=== PATIENT | female | born 1945 | race Caucasian/White ===

== ENCOUNTER 2022-04-08 08:17 | Emergency (ER) | payer OTHER, SELFPAY ==
[2022-04-08 08:28] VITALS: BP 129/83; PULSE 94; RESP 18; TEMP 36.7; O2SAT 96; BMI 27.6
--- NOTE | 2022-04-08 08:48 | CRLHL7_ITS ---
For Patients: As a result of the Century Cures Act, medical imaging exams and procedure reports are released immediately into your electronic medical record. You may view this report before your referring provider. If you have questions, please contact your health care provider. INDICATION: Right-sided chest pain COMPARISON: No prior studies TECHNIQUE: : CT examination of the chest was performed with the uneventful intravenous administration of 95 cc of Isovue 370 while thin axial sections were obtained from above the apices of the lungs to the lung bases. Please note that all CT scans at this facility use dose modulation, iterative reconstruction, and/or weight-based dosing when appropriate to reduce radiation dose to as low as reasonably achievable. FINDINGS: : HEART and MEDIASTINUM: The heart size is normal. There is no mediastinal or hilar adenopathy or mass. There is no pericardial effusion.Mild fusiform dilatation of the ascending aorta at 3.9 centimeters. Moderate to large hiatal hernia PULMONARY ARTERIAL CIRCULATION: Moderate large clot burden pulmonary embolus. This is primarily right-sided and most affecting the right lower lobe. RV/LV ratio: The ratio is 1.1. Greater than 0.9 is considered indicative of right heart strain LUNGS: The lungs show no focal consolidation or mass. The airways appear normal. Patchy basilar opacities, right greater than left, likely atelectasis. PLEURAL SPACES: Tiny right effusion. No pneumothorax VISUALIZED UPPER ABDOMEN: Hepatic steatosis. Cholelithiasis. Otherwise, the limited visualized upper abdominal structures appear normal. OSSEOUS STRUCTURES: Age-appropriate appearance. No acute fracture or destructive process. TUBES and LINES: None. IMPRESSION: 1. There is a moderate large clot burden pulmonary embolus primarily involving the right lung and most affecting the right lower lobe 2. There is right heart strain. The RV/LV ratio is 1.1. Greater than 0.9 is indicative of right heart strain 3. Minimal bibasilar airspace process probably atelectasis. Tiny right effusion. 4. Hepatic steatosis. Cholelithiasis. Please note that all CT scans at this facility use dose modulation, iterative reconstruction, and/or weight-based dosing when appropriate to reduce radiation dose to as low as reasonably achievable. Dictated by Willie Trevino MD @ 04/08/2022 12:12:06 PM (Electronically Signed)
--- NOTE | 2022-04-08 08:50 | ED.GENADULT ---
HPI - General Adult General Time Seen by Provider: 08:49 Date Seen: 04/08/22 Chief complaint: Chest Pain Stated complaint: pain on right side Time Seen by Provider: 04/08/22 08:24 Source: patient Mode of arrival: ambulatory Limitations: no limitations History of Present Illness HPI narrative: Patient is a 76-year-old white female with history of right-sided chest wall pain. This started last night. No associated injury, cough, fevers, anterior chest pain, leg swelling or edema. Patient does not know why this began but it is definitely tender to touch in her right mid axillary line in her lower ribcage. This is reproducible by palpation certain movements or deep breathing. She does not recall having had a blood clot. She has reports he has been in good health recently. She did take a tramadol to try and help that discomfort which she right rates as moderate in the right lateral chest to a times pretty extreme. No COVID symptoms. Related Data Home Medications Medication Instructions Recorded Confirmed acetaminophen 650 mg 650 mg PO Q8H PRN 04/08/22 04/08/22 tablet,extended release betamethasone valerate 0.1 % TOPICAL 04/08/22 topical ointment bupropion HCl 300 mg 24 hr tablet, mg PO 04/08/22 extended release diclofenac sodium 1 % topical gel TOPICAL 04/08/22 fluticasone propionate 50 INTRANASAL 04/08/22 mcg/actuation nasal spray,suspension pregabalin 25 mg capsule mg 04/08/22 quetiapine 100 mg tablet mg 04/08/22 quetiapine 25 mg tablet mg 04/08/22 sumatriptan succinate 100 mg tablet mg PO 04/08/22 tramadol 50 mg tablet mg 04/08/22 venlafaxine 75 mg capsule,extended mg PO 04/08/22 release 24 hr Allergies Allergy/AdvReac Type Severity Reaction Status Date / Time hylan G-F 20 [From hybris] Allergy Verified 04/08/22 08:49 Penicillins Allergy Verified 04/08/22 08:49 Review of Systems Status of ROS: Reports: 6 or more systems reviewed and unremarkable except as noted in History and below PFSH PFSH Social History Smoking Status: Never smoker Do you use any of these nicotine containing products: None Second hand tobacco smoke exposure: No How often do you have a drink containing alcohol: never How often do you have six or more drinks on one occasion: Never AUDIT-C Alcohol total score: 0 Non-prescribed substance use: denies use Exam Narrative: Exam Narrative: Objective: Patient is alert orient x3, vital signs unremarkable Noncyanotic Neck is supple Chest is clear equal breath sounds, right lateral chest wall pain mid axillary line lower chest wall. No crepitus, no skin rashes over that area Abdomen benign soft nontender Extremities are no edema Neurologic nonfocal, good peripheral perfusion, skin warm and dry Const: Vital Signs, click to edit/add: Vital Signs - 24 hr 04/08/22 08:28 04/08/22 10:00 04/08/22 11:02 Temperature 98.1 F Pulse Rate [Pulse Oximeter] 94 81 77 Respiratory Rate 18 12 16 Blood Pressure [Ri ght Forearm] 129/83 135/81 147/83 H Pulse Oximetry 96 92 91 Course Vital Signs Vital signs: Initial Vital Signs Temperature 98.1 F 04/08/22 08:28 Temperature Source Temporal Artery Scan 04/08/22 08:28 Pulse Rate 94 04/08/22 08:28 Pulse Rhythm 04/08/22 08:28 Pulse Strength 3+ Normal 04/08/22 08:28 Respiratory Rate 18 04/08/22 08:28 Blood Pressure 129/83 04/08/22 08:28 Blood Pressure Mean 98 04/08/22 08:28 Pulse Oximetry 96 04/08/22 08:28 Oxygen Delivery Method 04/08/22 08:28 Vital Signs Temperature 98.1 F 04/08/22 08:28 Pulse Rate 94 04/08/22 08:28 Respiratory Rate 18 04/08/22 08:28 Blood Pressure 129/83 04/08/22 08:28 Pulse Oximetry 96 04/08/22 08:28 Temperature 98.1 F 04/08/22 08:28 Pulse Rate 77 04/08/22 11:02 Respiratory Rate 16 04/08/22 11:02 Blood Pressure 147/83 H 04/08/22 11:02 Pulse Oximetry 91 04/08/22 11:02 Medical Decision Making MDM Narrative Medical decision making narrative: The patient really has no explanation why right chest wall is hurting, she has no rashes that would be consistent with shingles, certainly that could occur. The patient denies trauma denies fall or injury. She does seem to be pretty uncomfortable. I think would be appropriate given her age to make sure she did have any intrapulmonary process such as a PE, pneumonia, rib fracture so CT scan will be ordered of her chest. Will also get laboratories and an EKG and a troponin for completeness although her pain is palpable and reproducible and I do not think this is cardiac. Addendum: The patient has right-sided pulmonary emboli in 2 areas per Radiology. She is not hypoxic, is not on blood thinners. Has not had bleeding or clotting problems in the past. She is on antidepressant medication and has had trouble with arthritis. She takes Tylenol arthritis, and bladder medication. She sees Dr. Ana Porter. Her EKG by my read shows probable LVH but no acute ST T wave changes limited R-wave progression anteriorly. She is not hypoxic today. She has no leg pain, no chest pain, no shortness of breath. I will discuss with the hospitalist regarding treatment planning but I suspect she can go home on novel anticoagulant and will give her Xarelto 15 mg b.i.d. for 21 days then 20 mg q.day thereafter. She should be with Dr. Porter within the next couple of days for reassessment and ongoing planning. She can return to the ED at any time if chest pain shortness of breath or other concern. Discussed with Dr. Cummins our hospitalist who agreed with the plan, patient will also be given [place] for home. Lab Data Labs: Lab Results 04/08/22 04/08/22 Range/Units 09:10 09:10 WBC 9.81 (4.50-11.00) K/uL RBC 5.05 (4.00-5.20) m/uL Hgb 15.7 (12.0-16.0) gm/dL Hct 48.7 (33.0-51.0) % MCV 96 (80-100) fL MCH 31 (26-34) pg MCHC 32 (32-36) gm/dL RDW Coeff of Panchito 13.2 (11.5-15.5) % Plt Count 267 (140-440) K/uL Neut % (Auto) 76.0 H (42.0-72.0) % Lymph % (Auto) 12.8 L (20-44) % [place] % (Auto) 9.9 (0.0-11.0) % Eos % (Auto) 0.6 (0.0-7.0) % Baso % (Auto) 0.2 (0.0-3.0) % Neut # (Auto) 7.50 H (1.7-7.0) K/uL Lymph # (Auto) 1.30 (0.90-2.90) K/uL [place] # (Auto) 1.00 H (0.00-0.90) K/UL Eos # (Auto) 0.06 (0.00-0.50) K/uL Baso # (Auto) 0.02 (0.00-0.30) K/uL Abs Immat Gran (auto) 0.05 (0.00-0.30) K/uL Sodium 137 (135-149) mmol/L Potassium 4.4 (3.6-5.1) mmol/L Chloride 102 (96-114) mmol/L Carbon Dioxide 28 (20-32) mmol/L BUN 21 (7-30) mg/dL Creatinine 1.1 (0.5-1.5) mg/dL Estimated Creat Clear 40.09 Glucose 137 H (60-115) mg/dL Calcium 9.2 (8.4-10.6) mg/dL Troponin I < 0.01 L (0.01-0.04) ng/mL C-Reactive Protein 3.3 H (0.5-1.0) mg/dL Discharge Plan Discharge Clinical Impression: Chest wall pain Patient Disposition: Home w/ Parent or Adult Condition: Improved Additional Instructions: Rest, light activity, ice to the chest wall, [place] to use as needed, Advil as needed. Update primary care in the next couple of days Activity Level: Light activity Discharge Diet: Regular Prescriptions: No Action quetiapine 25 mg tablet 0RF betamethasone valerate 0.1 % ointment TOPICAL 0RF venlafaxine 75 mg capsule,extended release 24hr PO 0RF sumatriptan succinate 100 mg tablet PO 0RF tramadol 50 mg tablet 0RF quetiapine 100 mg tablet 0RF fluticasone propionate 50 mcg/actuation spray,suspension INTRANASAL 0RF bupropion HCl 300 mg tablet extended release 24 hr PO 0RF pregabalin 25 mg capsule 0RF diclofenac sodium 1 % gel TOPICAL 0RF acetaminophen 650 mg tablet extended release 650 mg PO Q8H [id number] Follow Up/Referrals: Ana Aguilar DO [Primary Care Provider] - Stand Alone Forms: [employer] Info Instructions
[2022-04-08] MEDS: 0.9 % SODIUM CHLORIDE 500 ML 500 ML IV (09:23)
[2022-04-08 09:24] LABS: Basophils Absolute Auto 0.02 K/uL (0.00-0.30); Basophils Percent Auto 0.2 % (0.0-3.0); Eosinophils Absolute Auto 0.06 K/uL (0.00-0.50); Eosinophils Percent Auto 0.6 % (0.0-7.0); Hematocrit 48.7 % (33.0-51.0); Hemoglobin* 15.7 gm/dL (12.0-16.0); Immature Granulocytes Abs Auto 0.05 K/uL (0.00-0.30); Lymphocytes Percent Auto 12.8 % (20-44); Mean Corpuscular HGB Conc 32 gm/dL (32-36); Mean Corpuscular Hemoglobin 31 pg (26-34); Mean Corpuscular Volume 96 fL (80-100); Monocytes Percent Auto 9.9 % (0.0-11.0); Platelet Count* 267 K/uL (140-440); RDW Coefficient of Variation % 13.2 % (11.5-15.5); Red Blood Count 5.05 m/uL (4.00-5.20); White Blood Count* 9.81 K/uL (4.50-11.00)
[2022-04-08] MEDS: MORPHINE 2 MG/ML inj IVP (09:25)
[2022-04-08 09:28] LABS: Slide Review Reflex No
[2022-04-08 10:00] VITALS: BP 135/81; PULSE 81; RESP 12; O2SAT 92
[2022-04-08 10:02] LABS: Chloride* 102 mmol/L (96-114); Potassium* 4.4 mmol/L (3.6-5.1); Sodium* 137 mmol/L (135-149)
[2022-04-08 10:05] LABS: Creatinine* 1.1 mg/dL (0.5-1.5); Est. Creatinine Clearance* 40.09; Estimated Glomerular Filt Rate 51.75
[2022-04-08 10:06] LABS: Blood Urea Nitrogen* 21 mg/dL (7-30); Calcium* 9.2 mg/dL (8.4-10.6); Carbon Dioxide* 28 mmol/L (20-32); Glucose* 137 mg/dL (60-115)
[2022-04-08 10:09] LABS: C Reactive Protein* 3.3 mg/dL (0.5-1.0)
[2022-04-08 10:18] LABS: Troponin I* < 0.01 ng/mL (0.01-0.04)
[2022-04-08 11:02] VITALS: BP 147/83; PULSE 77; RESP 16; O2SAT 91
[2022-04-08 11:30] VITALS: BP 155/87; PULSE 77; RESP 21; O2SAT 94
[2022-04-08] MEDS: RIVAROXABAN 10 MG TABLET 15 MG PO (11:44)
[2022-04-08] MEDS: HYDROCODONE/ACETAMIN 7.5-325 TABLET 1 TAB PO (11:45)
[2022-04-08 12:00] VITALS: BP 144/77; PULSE 77; RESP 21; O2SAT 94
[2022-04-08 12:15] VITALS: BP 144/77; PULSE 44; RESP 20
== END 2022-04-08 12:15 ==
PROVIDERS: Emergency Provider Family Medicine; PCP Family Medicine
DX: R07.89 Other chest pain (principal)
CPT/HCPCS: 96374; 36415; 71260; 80048; 84484; 85025; 86140; 93005; 99284; 99285; A9270; J2270; J7120; Q9967

== ENCOUNTER 2022-07-15 07:48 | Day surgery (SDC) | payer OTHER, SELFPAY ==
[2022-07-15] VITALS (24 sets, daily range): BP systolic 122–165; BP diastolic 75–109; PULSE 55–94; RESP 16–18; TEMP 35.8–36.6; O2SAT 91–98; BMI 29.0
[2022-07-15] MEDS: LACTATED RINGERS 1000 ML 1,000 ML 100 ML IV (08:30)
[2022-07-15] MEDS: ACETAMINOPHEN 500 MG TABLET 1000 MG PO ×2 (09:50→14:07)
[2022-07-15] MEDS: OXYCODONE (CR) 10 MG TAB.ER.12H PO (09:50)
[2022-07-15] MEDS: CELECOXIB 200 MG CAPSULE PO ×2 (09:50→20:58)
[2022-07-15] MEDS: fentaNYL 100 MCG/2 ML inj IVP (09:56)
[2022-07-15] MEDS: MIDAZOLAM HCL 1 MG/ML inj IVP (09:56)
--- NOTE | 2022-07-15 10:14 | SUR.PREOP ---
TIME?OUT:?0952 PT/RN/MDA?VERIFICATION?OF?SURGICAL?SITE,?PROCEDURE,?AND?CONSENT OBTAINED?PRIOR?TO?INVASIVE?PROCEDURE.
[2022-07-15] MEDS: CEFAZOLIN 2 GM in 0.9 % SODIUM CHLORIDE Mini-bag 100 ML IVPB ×2 (10:22→17:08)
[2022-07-15] MEDS: TRANEXAMIC ACID 100 MG/ML INJ 1000 MG IV (10:30)
--- NOTE | 2022-07-15 11:05 | W.PM.NB ---
Nerve Block Nerve Block Date Seen: 07/15/22 Type of block requested by surgeon for post-operative analgesia: adductor canal Side: left Time out performed: Yes Verification of patient name: Yes Verification of date of : Yes Site marking: site marked Name of person performing procedure: Anurag Continuous monitoring Was continuous monitoring of O2 sat, B/P, monitoring and evaluation advisor, recorded every 15 minutes?: Yes Procedure Checklist: sterile prep, needles and gloves Ultrasound guided. Images saved: Yes Medications given in 5ml increments after negative aspiration: Ropivicaine %: 0.5 mL: 20 Needle gauge: 20 Decadron (mg): 10 Precedex (mcg): 25 Patient tolerated procedure well: Yes Additional comments: Needle noted adjacent to nerve Block Charges Block Charge (with Pro Fee): Femoral Nerve Use of Ultrasound Machine for Block: Yes- US Guidance/pain block
--- NOTE | 2022-07-15 11:06 | W.PM.NB ---
Nerve Block Nerve Block Date Seen: 07/15/22 Type of block requested by surgeon for post-operative analgesia: geniculars Side: left Time out performed: Yes Verification of patient name: Yes Verification of date of : Yes Site marking: site marked Name of person performing procedure: Anurag Continuous monitoring Was continuous monitoring of O2 sat, B/P, tail board worker, recorded every 15 minutes?: Yes Procedure Checklist: sterile prep, needles and gloves Medications given in 5ml increments after negative aspiration: Ropivicaine %: 0.5 mL: 9 Needle gauge: 25 Patient tolerated procedure well: Yes Block Charges Block Charge (with Pro Fee): Genicular Nerve Block Use of Ultrasound Machine for Block: No
--- NOTE | 2022-07-15 11:49 | CRLHL7_ITS ---
For Patients: As a result of the Cures Act, medical imaging exams and procedure reports are released immediately into your electronic medical record. You may view this report before your referring provider. If you have questions, please contact your health care provider. Indication: POST OP LEFT TKA Technique: Two views left knee Findings/Impression: Hardware from a left total knee arthroplasty is in satisfactory position. Bone alignment is normal. No sign of acute fracture. Postop changes are within normal limits. Dictated by Ricardo Gabriel MD @ 07/15/2022 1:17:36 PM (Electronically Signed)
--- NOTE | 2022-07-15 12:33 | W.ANESCHARGE ---
Anesthesia Charges Start Date/Time Anesthesia Start Date: 07/15/22 Anesthesia Start Time: 10:12 Stop Date/Time Anesthesia Stop Date: 07/15/22 Anesthesia Stop Time: 12:31 Summary Emergency: No Extremes of Age: Over 69-CPT 13083
--- NOTE | 2022-07-15 13:32 | W.ANESCHARGE ---
Anesthesia Charges Start Date/Time Anesthesia Start Date: 07/15/22 Anesthesia Start Time: 10:12 Stop Date/Time Anesthesia Stop Date: 07/15/22 Anesthesia Stop Time: 12:31 Summary Emergency: No Extremes of Age: Over 69-CPT 93076
[2022-07-15] MEDS: LACTATED RINGERS 1000 ML 1,000 ML 75 ML IV ×2 (13:56→19:24)
--- NOTE | 2022-07-15 14:51 | PM.ORPRC ---
Procedure Note Date of procedure: 07/15/22 Procedure: PREOPERATIVE DIAGNOSIS: 1. Left knee osteoarthritis, primary, severe POSTOPERATIVE DIAGNOSIS: 1. Left knee osteoarthritis, primary, severe PROCEDURE: 1. Left total knee arthroplasty SURGEON: Mark Thomas MD. SENIOR GROUP MANAGER: Abebe Johnson PA-C - Of note, a skilled assistant professor nurse education was critical for this case to aid in patient positioning, tissue retraction, limb manipulation/positioning, and closure. ANESTHESIA: Spinal anesthetic EBL: 50ml IMPLANTS: DePuy J&J all cemented TKA - Attune PS femur size 5 narrow, size 4 tibia, 5 poly spacer, 32 mm patella TOURNIQUET: 90 min at 300 torr COMPLICATIONS: None evident INDICATIONS: The patient is a pleasant 77-year-old female who has experienced severe left knee pain and difficulty bearing weight. Workup included x-rays which revealed severe osteoarthrosis in the knee. Given the deformity, the dysfunction, and the pain, as well as the failure of nonoperative management, recommendation was made for surgery. FINDINGS: Full-thickness chondral loss lateral compartment the significant chondromalacia the remaining compartments. Large effusion upon entering the joint. Degenerative meniscal pathology specially lateral compartment. DESCRIPTION OF PROCEDURE: Following a thorough discussion of risks, benefits, and alternatives consent was obtained and the left knee was marked. The patient was brought to the operating room and placed supine on the operating table. Induction of anesthesia was undertaken. 2 g IV Ancef and 1 g tranexamic acid was administered within 1 hr of incision preoperatively. Proper time-out was performed identifying proper patient, site, procedure. The operative extremity was prepped and draped in the appropriate sterile fashion using ChloraPrep after the patient was positioned supine with all bony prominences well padded. A longitudinal, anterior, midline skin incision was made starting approximately 3cm proximal to the superior pole of the patella and advanced distal to the tibial tubercle. A median parapatellar arthrotomy was created. A medial subperiosteal sleeve was created with knife, barth elevator and curved osteotome. The retropatellar fatpad was resected and the synovium in the suprapatellar pouch excised to visualize the anterior femoral cortex. Femoral preparation was performed via an intramedullary guide. Step drill allowed access into the femoral canal. The distal cutting guide was placed with 6 ? of valgus and 11 mm cut on the distal femur. Femur was sized using a posterior referencing guide in 5 ? of external rotation. This found have a best fit with the sizing noted above. The 4 in 1 cutting block was then placed, and the distal femur shaped accordingly. The box cut was then created and the trial implant inserted to confirm appropriate fit. We turned our attention to the proximal tibia. Extramedullary guide was utilized for cutting with the goal of being 90 degree cut from the mechanical axis of the tibia in the varus/valgus plane utilizing tibial crest as the primary alignment. Initially a 3 mm resection was performed from the medial tibial plateau. Ultimately, balancing was achieved in both flexion and extension in both varus and valgus. The knee was able to achieve full extension as well comfortably. The patella was initially measured and found have a thickness of 22 mm. It was resected back to approximately 14 mm. It was sized to be a best fit with as noted above. This was drilled, trial placed. All trials were placed and found to have an excellent stability and balance. At this stage, trial implants were removed, the knee was thoroughly irrigated with normal saline, and the cement was mixed. After irrigation, the knee was thoroughly dried, and cement placed, with the real tibial and femoral implants placed along with the patella. Trial poly spacer was placed and confirmed to have excellent range of motion and full extension, and the real poly spacer opened and inserted. All extra cement was removed, and a 3 min Betadine soak performed. Finally, a final irrigation round with normal saline was performed. Closure performed with 0 PDS and #0 Stratafix for the quad tendon/retinaculum. 2-0 Vicryl/Stratafix for the subcutaneous and 4-0 Monocryl for subcuticular closure. Dressings were applied and the patient was awoken from anesthesia after the tourniquet deflated and transferred the PACU in stable condition. A skilled assistant professor nurse education was critical for this case to aid in patient positioning, tissue retraction, bone exposure, limb manipulation/positioning, patient safety, and closure. PLAN: 1. Weight bear as tolerated operative extremity. 2. 23 hr perioperative antibiotics. 3. Ice. 4. PT/OT consults for ambulation assistance/mobility education. 5. Social work consult for discharge planning. 6. DVT prophylaxis with at SCDs, Dax Hose, and Xarelto 10 mg x 1 day then back to 20 mg daily.
[2022-07-15] MEDS: OXYCODONE 5 MG TABLET PO ×3 (15:24→20:59)
--- NOTE | 2022-07-15 17:44 | PC.NURSE ---
Shift Summary: Patient arrived to room @ 1318, alert and oriented. Tolerating regular diet, denies nausea. Up with one assist, walker and gait belt. Pain controlled with PRN oxycodone and cryocuff. Has not been up to bathroom yet. In recliner for dinner now. Dressing over left knee dry and intact.
[2022-07-15] MEDS: SENNOSIDES 1 TAB TABLET 2 TAB PO (20:59)
[2022-07-15] MEDS: QUETIAPINE 25 MG TABLET PO (20:59)
[2022-07-15] MEDS: QUETIAPINE 100 MG TABLET PO (20:59)
--- NOTE | 2022-07-15 21:52 | P.IMCN_ITS ---
Date of Consult Patient: Jan Patient Consult date: 07/15/22 Requesting Physician: Orthopedics Primary Care Provider: Ana Aguilar, Consult Narrative Reason for consult: Postoperative support of medical conditions Narrative: Melanie Frederick is a 77 year old woman presents for elective left total knee arthroplasty due to severe osteoarthritis not amenable to nonsurgical intervention efforts. This procedures undertaken today successfully without any apparent complications. Review of Systems Status of ROS: Reports: 10 or more systems reviewed and unremarkable except as noted in History and below Narrative: Denies angina, anginal equivalent, syncope, near syncope, nausea, vomiting, palpitations, diaphoresis, dyspnea at rest, dyspnea with exertion, paroxysmal nocturnal dyspnea, orthopnea, or claudication. Denies gastrointestinal or genitourinary concerns or problems. No focal motor neurologic deficits. Acknowledges history of pulmonary embolism diagnosed in April of 2022 for which she is on rivaroxaban since then. Consultation with Hematology undertaken and recommendation given for lifelong anticoagulation. Presumably developed venous thromboembolism in association with sedate lifestyle. No complications from this therapy. Tolerating. Discontinue the therapy with rivaroxaban prior to her procedure. Acknowledges very sedate lifestyle with increasing left knee pain. Hopes to be able to increase her ambulatory status after this surgery. Lives with her . Designates her as her power of immigration attorney for health should that be required. Requests full resuscitation in the event of cardiopulmonary demise. [facility] Medical History (Updated 07/15/22 @ 22:05 by Russell Marquez MD) Allergic rhinitis Chronic anticoagulation CKD (chronic kidney disease) Generalized anxiety disorder History of pulmonary embolism (04/08/22) Iron deficiency anemia, unspecified Lichenification and lichen simplex chronicus Personal history of colonic polyps Pulmonary nodule Seasonal affective disorder Surgical History (Updated 07/15/22 @ 22:05 by Russell Marquez MD) History of bladder surgery Social History Smoking Status: Never smoker Do you use any of these nicotine containing products: None Second hand tobacco smoke exposure: No How often do you have a drink containing alcohol: never How often do you have six or more drinks on one occasion: Never AUDIT-C Alcohol total score: 0 Non-prescribed substance use: denies use Caffeine: No Are you using contraception or practicing any form of control: No service: No Meds Home Medications and Allergies Home Medications Medication Instructions Recorded Confirmed Type acetaminophen 650 mg 650 mg PO Q8H PRN 04/08/22 07/15/22 History tablet,extended release betamethasone valerate 0.1 % 1 applic topical DAILY 04/08/22 07/15/22 History topical ointment bupropion HCl 300 mg 24 hr tablet, 300 mg PO DAILY 04/08/22 07/15/22 History extended release diclofenac sodium 1 % topical gel 4 g topical QID 04/08/22 07/15/22 History fluticasone propionate 50 2 spray intranasal DAILY 04/08/22 07/15/22 History mcg/actuation nasal spray,suspension quetiapine 100 mg tablet 100 mg PO HS 04/08/22 07/15/22 History quetiapine 25 mg tablet 25 mg PO HS 04/08/22 07/15/22 History sumatriptan succinate 100 mg tablet 100 mg PO Q2H PRN 04/08/22 07/15/22 History venlafaxine 75 mg capsule,extended 75 mg PO DAILY 04/08/22 07/15/22 History release 24 hr rivaroxaban 15 mg tablet (Xarelto) 20 mg PO DIRECTED 04/26/22 07/15/22 History venlafaxine 37.5 mg 37.5 mg PO DAILY 07/15/22 07/15/22 History capsule,extended release 24 hr Allergies Allergy/AdvReac Type Severity Reaction Status Date / Time Penicillins Allergy Intermediate Rash Verified 07/15/22 08:16 erythromycin base Allergy Mild RASH Verified 07/15/22 08:16 hylan G-F 20 [From [employer]] Allergy Verified 07/15/22 08:16 Exam Narrative: Exam Narrative: No acute distress. Appears comfortable. Alert, oriented to self, place, time, situation. Articulate, cooperative, friendly. Mood and affect are congruent. Hearing and vision are grossly normal. Midline nasal septum with normal buccal mucosa. Dentition in fair repair. Midline trachea, normal thyroid, no JVD, hepatojugular reflux, or carotid bruits. No lymphadenopathy. Lungs are clear to auscultation. Heart tones with regular rhythm without murmur, gallop, or rub. Abdomen with active bowel sounds, soft, nontender. Extremities without edema. Skin is intact. Const: Vital Signs, click to edit/add: Vital Signs - 24 hr 07/15/22 08:29 07/15/22 09:55 07/15/22 10:00 Temperature 98 F Pulse Rate 83 83 83 Pulse Rate [Right Pulse Oximeter] Respiratory Rate 16 16 16 Blood Pressure 149/89 H 144/84 H 133/75 Blood Pressure [Ri ght Arm] Pulse Oximetry 98 98 97 Oxygen Delivery Me thod Room Air Nasal Cannula Nasal Cannula Oxygen Flow Rate 2 2 07/15/22 10:05 07/15/22 12:30 07/15/22 12:35 Temperature 97.2 F L Pulse Rate 83 65 66 Pulse Rate [Right Pulse Oximeter] Respiratory Rate 16 16 16 Blood Pressure 157/90 H 124/79 136/87 Blood Pressure [Ri ght Arm] Pulse Oximetry 97 98 98 Oxygen Delivery Me thod Nasal Cannula Non Rebreather Mas k Non Rebreather Mas k Oxygen Flow Rate 2 5 5 07/15/22 12:40 07/15/22 12:45 07/15/22 12:50 Temperature 97.2 F L Pulse Rate 63 64 57 L Pulse Rate [Right Pulse Oximeter] Respiratory Rate 16 16 16 Blood Pressure 133/94 H 146/85 H 147/82 H Blood Pressure [Ri ght Arm] Pulse Oximetry 98 98 98 Oxygen Delivery Me thod Non Rebreather Mas k Non Rebreather Mas k Non Rebreather Mas k Oxygen Flow Rate 5 5 2 07/15/22 12:55 07/15/22 13:00 07/15/22 13:05 Temperature Pulse Rate 67 60 63 Pulse Rate [Right Pulse Oximeter] Respiratory Rate 16 16 16 Blood Pressure 153/96 H 145/96 H 142/84 H Blood Pressure [Ri ght Arm] Pulse Oximetry 92 95 94 Oxygen Delivery Me thod Room Air Room Air Room Air Oxygen Flow Rate 07/15/22 13:30 07/15/22 13:45 07/15/22 13:18 Temperature 96.5 F L 96.4 F L 96.5 F L Pulse Rate 60 Pulse Rate [Right Pulse Oximeter] 55 L 58 L Respiratory Rate 18 18 18 Blood Pressure Blood Pressure [Ri ght Arm] 154/85 H 163/89 H 137/102 H Pulse Oximetry 91 Oxygen Delivery Me thod Nasal Cannula Nasal Cannula Nasal Cannula Oxygen Flow Rate 2 2 2 07/15/22 14:00 07/15/22 14:15 07/15/22 14:45 Temperature 96.4 F L 96.5 F L 96.5 F L Pulse Rate Pulse Rate [Right Pulse Oximeter] 72 62 73 Respiratory Rate 18 18 18 Blood Pressure Blood Pressure [Ri ght Arm] 157/96 H 165/91 H 163/96 H Pulse Oximetry 94 94 91 Oxygen Delivery Me thod Nasal Cannula Nasal Cannula Nasal Cannula Oxygen Flow Rate 2 1 1 07/15/22 15:15 07/15/22 16:15 07/15/22 17:15 Temperature 96.5 F L 96.5 F L 96.7 F L Pulse Rate Pulse Rate [Right Pulse Oximeter] 90 89 94 Respiratory Rate 18 16 16 Blood Pressure Blood Pressure [Ri ght Arm] 146/94 H 156/89 H 154/109 H Pulse Oximetry 91 93 Oxygen Delivery Me thod Nasal Cannula Nasal Cannula Nasal Cannula Oxygen Flow Rate 2 2 2 07/15/22 18:15 07/15/22 19:30 Temperature 96.8 F L Pulse Rate Pulse Rate [Right Pulse Oximeter] 90 88 Respiratory Rate 16 16 Blood Pressure Blood Pressure [Ri ght Arm] 147/106 H 155/109 H Pulse Oximetry 94 93 Oxygen Delivery Me thod Nasal Cannula Nasal Cannula Oxygen Flow Rate 2 2 Documenting provider has reviewed patient's vital signs: yes Assessment and Plan Assessment and plan (1) Osteoarthritis of left knee: Problem comment: Left knee osteoarthrosis, severe Status: Acute (2) Status post left knee replacement: Status: Acute (3) Degenerative lumbar spinal stenosis: Problem comment: L2-3 grade 1 retrolisthesis. Mild-moderate neural foraminal stenosis L5-S1 small left foraminal disc extrusion. Mild left foraminal stenosis Status: Acute (4) Generalized anxiety disorder: Status: Acute (5) Depression: Status: Acute (6) History of pulmonary embolism: Problem comment: 04/08/2022 due to sedate lifestyle. Hematology recommended lifelong anticoagulation. Status: Acute (7) Chronic anticoagulation: Problem comment: Rivaroxaban (Xarelto) 20 mg daily. Hematology recommended lifelong anticoagulation. Status: Acute (8) CKD (chronic kidney disease): Status: Acute Plan 1. Reviewed impression with patient. Answered her questions are satisfaction. Reviewed the same with her . Answered his questions as well. 2. Continue with supportive medications. 3. Agree with perioperative prophylactic antibiotics. 4. Agree with resuming rivaroxaban tomorrow on postoperative day 1. 5. Assuming that all goes well with physical and occupational therapy I anticipate patient will be able to be discharged home with appropriate supportive efforts. Should patient not be able to adequately demonstrate ability to go home then different discharge plan will need to be considered.
[2022-07-15] MEDS: HYDROmorphone 0.5 mg/0.5 ml inj IVP (22:04)
[2022-07-16] MEDS: OXYCODONE 5 MG TABLET PO ×4 (01:05→12:15)
[2022-07-16] MEDS: ACETAMINOPHEN 500 MG TABLET 1000 MG PO ×2 (01:05→08:24)
[2022-07-16] MEDS: CEFAZOLIN 2 GM in 0.9 % SODIUM CHLORIDE Mini-bag 100 ML IVPB ×2 (01:11→10:17)
[2022-07-16 03:00] VITALS: BP 149/96; PULSE 82; RESP 16; TEMP 36.6; O2SAT 92
--- NOTE | 2022-07-16 05:22 | PC.NURSE ---
SHIFT NOTE -: Pt A&O with some intermittent confusion noted. Up heavy 2 assist to BSC overnight and grossly incontinent of urine, handy care provided. VSS on 2L O2 via NC. PRN Oxycodone and scheduled Tylenol given for pain with pt reporting relief. Pt denies SOB, CP, and N/V.
[2022-07-16 06:51] LABS: Hematocrit 43.3 % (33.0-51.0); Hemoglobin* 13.9 gm/dL (12.0-16.0); Immature Granulocytes Abs Auto 0.09 K/uL (0.00-0.30); Lymphocytes Percent Auto 6.6 % (20-44); Mean Corpuscular HGB Conc 32 gm/dL (32-36); Mean Corpuscular Hemoglobin 31 pg (26-34); Mean Corpuscular Volume 96 fL (80-100); Monocytes Percent Auto 7.6 % (0.0-11.0); Neutrophils Percent Auto 85.1 % (42.0-72.0); Platelet Count* 258 K/uL (140-440); RDW Coefficient of Variation % 13.2 % (11.5-15.5); Red Blood Count 4.52 m/uL (4.00-5.20); White Blood Count* 13.49 K/uL (4.50-11.00)
[2022-07-16 06:55] LABS: Slide Review Reflex No
[2022-07-16 07:10] LABS: Sodium* 136 mmol/L (135-149)
[2022-07-16 07:11] LABS: Potassium* 4.6 mmol/L (3.6-5.1)
[2022-07-16 07:13] LABS: Creatinine* 0.9 mg/dL (0.5-1.5); Estimated Glomerular Filt Rate 65 ml/min
[2022-07-16 07:14] LABS: Blood Urea Nitrogen* 30 mg/dL (7-30)
[2022-07-16 08:33] VITALS: BP 160/91; PULSE 83; RESP 18; TEMP 36.4; O2SAT 93
[2022-07-16] MEDS: buPROPion XL 150 MG TABLET 300 MG PO (09:10)
[2022-07-16] MEDS: CELECOXIB 200 MG CAPSULE PO (09:10)
[2022-07-16] MEDS: RIVAROXABAN 10 MG TABLET PO (09:10)
[2022-07-16] MEDS: VENLAFAXINE ER 75 MG CAPSULE PO (09:10)
[2022-07-16] MEDS: VENLAFAXINE HCL ER 37.5 MG CAPSULE PO (09:14)
[2022-07-16] MEDS: SENNOSIDES 1 TAB TABLET 2 TAB PO (09:14)
--- NOTE | 2022-07-16 10:43 | PC.SOCIAL ---
Addendum entered by SO Mendez 07/16/22 12:43: Reviewed and approved Social Work Architectural Project Captain note. Johanna Hayden Original Note: SW checked in with patient about discharge. Pt. has at home to support her, has been informed of PT exercises and knows he can reach out to PT with any questions about them. Pt. expresses that home is accessible and safe to them, single level home. Pt. expresses no other concerns at this time. Pt. has been informed that they can reach back out to hospital SW at any time with concerns.
[2022-07-16 11:16] VITALS: BP 125/70; PULSE 85; RESP 18; TEMP 36.4; O2SAT 91
--- NOTE | 2022-07-16 11:41 | P.ORPN_ITS ---
Subjective Subjective Date Seen: 07/16/22 Principal diagnosis: Status postop day 1 left total knee arthroplasty Interval history: Patient reports doing well. No acute events over night. Per staff, patient originally was assist of 1 for ambulation/transfers soon after surgery, but since then has been heavy assist of 2. Pain managed with scheduled /PRN medications and ice. 5/10 pain at rest. DVT prophylaxis rivaroxaban 10 mg postop day 1, followed by her normal regimen of rivaroxaban due to recent diagnosis pulmonary embolism April 2022, bilateral knee high Dax stockings, and SCDs. Reports some very mild nausea and headache. Denies fevers, chills, aches , vomiting, CP, SOB/VANESSA, tachycardia, or lightheadedness. Ortho Exam Narrative Exam Narrative: -Patient appears comfortable; no apparent acute distress -Alert and oriented times 3 -Operative knee mildly swollen; soft tissues supple; no ecchymosis; no erythematous streaking Warmth appropriate -Surgical dressing clean, dry, intact; no drainage -Bilateral calfs soft; no significant swelling, edema, tenderness, erythema, discoloration, warmth, or palpable cords -2+ DP/PT pulses, intact dermatomes and myotomes distally (5/5 strength) Const Vital Signs, click to edit/add: Vital Signs - 24 hr 07/15/22 12:30 07/15/22 12:35 07/15/22 12:40 Temperature 97.2 F L Pulse Rate 65 66 63 Pulse Rate [Right Pulse Oximeter] Respiratory Rate 16 16 16 Blood Pressure 124/79 136/87 133/94 H Blood Pressure [Right Arm] Pulse Oximetry 98 98 98 Oxygen Delivery Method Non Rebreather Mask Non Rebreather Mask Non Rebreather Mask Oxygen Flow Rate 5 5 5 07/15/22 12:45 07/15/22 12:50 07/15/22 12:55 Temperature 97.2 F L Pulse Rate 64 57 L 67 Pulse Rate [Right Pulse Oximeter] Respiratory Rate 16 16 16 Blood Pressure 146/85 H 147/82 H 153/96 H Blood Pressure [Right Arm] Pulse Oximetry 98 98 92 Oxygen Delivery Method Non Rebreather Mask Non Rebreather Mask Room Air Oxygen Flow Rate 5 2 07/15/22 13:00 07/15/22 13:05 07/15/22 13:30 Temperature 96.5 F L Pulse Rate 60 63 Pulse Rate [Right Pulse Oximeter] 55 L Respiratory Rate 16 16 18 Blood Pressure 145/96 H 142/84 H Blood Pressure [Right Arm] 154/85 H Pulse Oximetry 95 94 Oxygen Delivery Method Room Air Room Air Nasal Cannula Oxygen Flow Rate 2 07/15/22 13:45 07/15/22 13:18 07/15/22 14:00 Temperature 96.4 F L 96.5 F L 96.4 F L Pulse Rate 60 Pulse Rate [Right Pulse Oximeter] 58 L 72 Respiratory Rate 18 18 18 Blood Pressure Blood Pressure [Right Arm] 163/89 H 137/102 H 157/96 H Pulse Oximetry 91 94 Oxygen Delivery Method Nasal Cannula Nasal Cannula Nasal Cannula Oxygen Flow Rate 2 2 2 07/15/22 14:15 07/15/22 14:45 07/15/22 15:15 Temperature 96.5 F L 96.5 F L 96.5 F L Pulse Rate Pulse Rate [Right Pulse Oximeter] 62 73 90 Respiratory Rate 18 18 18 Blood Pressure Blood Pressure [Right Arm] 165/91 H 163/96 H 146/94 H Pulse Oximetry 94 91 Oxygen Delivery Method Nasal Cannula Nasal Cannula Nasal Cannula Oxygen Flow Rate 1 1 2 07/15/22 16:15 07/15/22 17:15 07/15/22 18:15 Temperature 96.5 F L 96.7 F L 96.8 F L Pulse Rate Pulse Rate [Right Pulse Oximeter] 89 94 90 Respiratory Rate 16 16 16 Blood Pressure Blood Pressure [Right Arm] 156/89 H 154/109 H 147/106 H Pulse Oximetry 91 93 94 Oxygen Delivery Method Nasal Cannula Nasal Cannula Nasal Cannula Oxygen Flow Rate 2 2 2 07/15/22 19:30 07/15/22 23:00 07/15/22 23:00 Temperature 97.2 F L Pulse Rate Pulse Rate [Right Pulse Oximeter] 88 88 88 Respiratory Rate 16 16 18 Blood Pressure Blood Pressure [Right Arm] 155/109 H 122/88 Pulse Oximetry 93 93 Oxygen Delivery Method Nasal Cannula Nasal Cannula Oxygen Flow Rate 2 2 07/16/22 03:00 07/16/22 08:33 07/16/22 11:16 Temperature 98 F 97.6 F 97.5 F L Pulse Rate Pulse Rate [Right Pulse Oximeter] 82 83 85 Respiratory Rate 16 18 18 Blood Pressure Blood Pressure [Right Arm] 149/96 H 160/91 H 125/70 Pulse Oximetry 92 93 91 Oxygen Delivery Method Nasal Cannula Nasal Cannula Room Air Oxygen Flow Rate 2 2 Assessment and Plan Assessment and plan (1) Osteoarthritis of left knee: Problem details: Left knee osteoarthrosis, severe Status: Acute (2) Status post left knee replacement: Problem details: POD 1 left total knee arthroplasty Status: Acute (3) Degenerative lumbar spinal stenosis: Problem details: L2-3 grade 1 retrolisthesis. Mild-moderate neural foraminal stenosis L5-S1 small left foraminal disc extrusion. Mild left foraminal stenosis Status: Acute (4) Generalized anxiety disorder: Status: Acute (5) Depression: Status: Acute (6) History of pulmonary embolism: Problem details: 04/08/2022 due to sedate lifestyle. Hematology recommended lifelong anticoagulation. Status: Acute (7) Chronic anticoagulation: Problem details: Rivaroxaban (Xarelto) 20 mg daily. Hematology recommended lifelong anticoagulation. Status: Acute (8) CKD (chronic kidney disease): Status: Acute Plan - Complete 23 hour perioperative antibiotics. - PT/OT consult for education and assistance. - Social work consult for discharge planning - Prescribed analgesics as needed - DVT prophylaxis: 10 mg rivaroxaban postop day 1, followed by return to 20 mg daily on postop day 2, indefinitely; bilateral knee high Dax Hose stockings and SCDs - Anticipation is for discharge to home with spouse; however, patient has been heavy assist of 2, thus unsure how therapy will go today regarding if she may be discharged today or needs an additional day in the hospital for further care. Once the patient remains medically stable, pain is controlled, and they are safe with mobilization, then she may be discharged.
--- NOTE | 2022-07-16 12:38 | PC.NURSE ---
Discharge: Patient pleasant and coopeative, appeared confused this morning but easy to reorient. present throughout morning, discussed medications and cares needed at discharge. Reviewed follow ups, discharge instructions and new medications, questions answered as needed. IV in right hand removed, catheter intact. Vitals stable and WNL. Pain well controlled with oxycodone and cryocuff. Patient discharged to home @ 1220, left via wheelchair with accompanying.
== END 2022-07-16 12:20 | disposition home or self-care (01) ==
LOC: OR 07:48 → MEDSURG 07:54
PROVIDERS: PCP Family Medicine; Visit Provider Orthopaedic Surgery Sports Medicine
PROC: (CPT 27447; principal; 2022-07-15 09:15)
DX: M17.12 Unilateral primary osteoarthritis, left knee (principal); M48.061 Spinal stenosis, lumbar region without neurogenic claudication; F41.1 Generalized anxiety disorder; F32.A Depression, unspecified; Z86.711 Personal history of pulmonary embolism; Z79.01 Long term (current) use of anticoagulants; N18.9 Chronic kidney disease, unspecified
CPT/HCPCS: 27447; 01402; 36415; 64447; 64454; 73560; 76942; 82565; 84132; 84295; 84520; 85025; 97110; 97116; 97161; 97165; 97530; 97535; 99100; A9270; C1776; J0690; J1100; J1170; J2250; J2405; J2704; J2795; J3010; J7120

== ENCOUNTER 2022-07-22 08:08 | Outpatient (CLI) | payer OTHER, SELFPAY ==
--- OUTSIDE RECORDS SUMMARY | 2022-07-31 10:21 | XMS_ITS ---
:1945 Author Care Team Providers Name Role Phone [facility] Primary Care Provider [phone] Allergies Code Code System Name Reaction Severity Status Onset Penicillin ? ? Active ? Medications Name Status Start Date Stop Date ? ? betamethasone valerate 0.1 % topical ointment Active ? Not available APPLY A SMALL FILM TO AFFECTED AREA NIGHTLY FOR 6 WEEKS THEN TW ICE A WEEK bupropion HCl XL 300 mg 24 hr tablet, extended release Active ? Not available Calcium with Vitamin D Active ? Not avail able Don?t know 2/day cefadroxil 500 mg capsule Active ? Not av ailable cefuroxime axetil 500 mg tablet Active ? Not available cephalexin 500 mg capsule Active ? Not av ailable ciprofloxacin 500 mg tablet Active ? Not available d-mannose (bulk) 99 % powder Active ? Not available One tsp, 2 gms 1/day diclofenac 1 % topical gel Active ? Not a vailable Effexor XR 150 mg capsule,extended release Active ? Not available 50mg 1/day fluticasone propionate 50 mcg/actuation nasal Active ? Not available spray,suspension Gemtesa 75 mg tablet Active ? Not availab le Take 1 tablet every day by oral route. hydrocodone 5 mg-acetaminophen 325 mg tablet Active ? Not available Imitrex STATdose Pen Active ? Not availab le 200 mg As needed for migraine/day Myrbetriq 50 mg tablet,extended release Active ? Not available nitrofurantoin monohydrate/macrocrystals 100 mg capsule Active ? Not available quetiapine 100 mg tablet Active ? Not ashish ilable quetiapine 25 mg tablet Active ? Not avai lable quetiapine 50 mg tablet Active ? Not avai lable Seroquel XR 200 mg tablet,extended release Active ? Not available 200mg 1/day sulfamethoxazole 800 mg-trimethoprim 160 mg tablet Active ? Not available sumatriptan 100 mg tablet Active ? Not av ailable trimethoprim 100 mg tablet Active ? Not a vailable venlafaxine ER 37.5 mg capsule,extended release 24 hr Active ? Not available venlafaxine ER 75 mg capsule,extended release 24 hr Active ? Not available Problems Name Status Onset Date Source ? Sensation as If Bladder Still Full Active 03/14/2014 History Mixed Urinary Incontinence Active 03/14/2014 Histo ry Urge Incontinence of Urine Active 04/15/2014 Histo ry Finding of Desire for Urination Active 04/15/2014 History Complete Fecal Incontinence Active 04/15/2014 Hist ory Increased Frequency of Urination Active 01/01/2016 History Overactive Bladder Active 01/01/2016 History Procedures Date Name Performed by ? 09/10/2019 Insrt/redo Pn/gastr Stimul Information n ot available Notes: 09/10/2019 - INSRT/REDO PN/JOHN R STIMUL 08/27/2019 Opn Impltj Lia Sacral Nerve Information not available Notes: 08/27/2019 - IMPLANT NEUROELECT RODES 07/12/2019 Implant Neuroelectrodes Information not available Notes: 07/12/2019 - IMPLANT NEUROELECT RODES 06/21/2019 Cystometrogram W/vp analytics&up Information not a vailable Notes: 06/21/2019 - CYSTOMETROGRAM W/V P&UP 06/21/2019 Electro-uroflowmetry First Information n ot available Notes: 06/21/2019 - ELECTRO-UROFLOWMET RY FIRST 06/21/2019 Intraabdominal Pressure Test Information not available Notes: 06/21/2019 - INTRAABDOMINAL PRE SSURE TEST 06/21/2019 Anal/urinary Muscle Study Information no t available Notes: 06/21/2019 - ANAL/URINARY MUSCL E STUDY 05/25/2019 Us Urine Capacity Measure Information no t available Notes: 05/25/2019 - US URINE CAPACITY MEASURE 04/12/2019 Insert Bladder Catheter Information not available Notes: 04/12/2019 - INSERT BLADDER CAT HETER 03/21/2016 Colonoscopy Thru Stoma Spx Information n ot available Notes: 03/21/2016 - COLONOSCOPY THRU S ZAK SPX 01/01/2016 Us Urine Capacity Measure Information no t available Notes: 01/01/2016 - US URINE CAPACITY MEASURE 09/05/2015 Occult Blood Feces Information not avai lable Notes: Stool blood test (FOBT) 10/10/2014 Foot/toes Surgery Procedure Information not available Notes: 10/10/2014 - FOOT/TOES SURGERY PROCEDURE 04/15/2014 Us Urine Capacity Measure Information no t available Notes: 04/15/2014 - US URINE CAPACITY MEASURE 03/14/2014 Cystometrogram W/vp analytics&up Information not a vailable Notes: 03/14/2014 - CYSTOMETROGRAM W/V P&UP 03/14/2014 Intraabdominal Pressure Test Information not available Notes: 03/14/2014 - INTRAABDOMINAL PRE SSURE TEST 03/14/2014 Anal/urinary Muscle Study Information no t available Notes: 03/14/2014 - ANAL/URINARY MUSCL E STUDY 03/14/2014 Cystoscopy Information not avai lable Notes: 03/14/2014 - CYSTOSCOPY 03/14/2014 Electro-uroflowmetry First Information n ot available Notes: 03/14/2014 - ELECTRO-UROFLOWMET RY FIRST 04/03/2011 Esophagoscopy Flexible [place] Information not available Notes: 04/03/2011 - ESOPHAGOSCOPY FLEX IBLE BRUSH 03/07/2011 Diagnostic Colonoscopy Information not a vailable Notes: Colonoscopy 10/31/2010 Colonoscopy Thru Stoma Spx Information n ot available Notes: 10/31/2010 - COLONOSCOPY THRU S ZAK SPX ? Lap Place Gastr Adj Device Information n ot available Notes: Bariatric (Weight Loss) Surgery ? Dilation and Curettage Information not a vailable Notes: DILATION AND CURETTAGE Notes: Other surgeries: Us urine capac ity measure, Insert bladder catheter, Colonoscopy thru stoma spx, Us urine capacity measure, Foot/toes surgery procedure, Us urine capacity measure, Colonoscopy thru stoma spx and Dilation and curettage HN - Patient indicated: Insrt/redo pn/ga str stimul, Implant neuroelectrodes, Implant neuroelectrodes, Cystometrogram w/vp analytics&up, Electro-uroflowmetry first, Intraabdominal pressure test, Anal/urinary m uscle study, Cystometrogram w/vp analytics&up, Int raabdominal pressure test, Anal/urinary muscle study, Electro-uroflowmetry first and Esophagoscopy flexible brush are not accurate. Other surgeries: Insrt/redo pn/gastr sti mul, Opn impltj lia sacral nerve, Implant neuroelectrodes, Us urine capacity measure, Insert bladder catheter, Colonoscopy thru stoma spx, Us urine capacity measu re, Foot/toes surgery procedure, Us urin e capacity measure, Esophagoscopy flexible brush, Colonoscopy thru stoma spx and Dilation and curettage HN - Patient indicated: Cystometrogram w /vp analytics&up, Electro-uroflowmetry first, Intraabdominal pressure test, Anal/urinary muscle study, Cystometrogram w/vp analytics&up, Intraabdominal pressure test, Anal/ur inary muscle study and Electro-uroflowme try first are not accurate. Results Lab Results None recorded. Past Encounters 10/04/2021 Overactive Bladder; Urge Incontinence of Urine Carine Mcdaniel MD: [address] [address], Ph. 10/04/2021 Overactive Bladder Carine Mcdaniel MD: [address] [address], Ph. 08/29/2021 Overactive Bladder Carine Mcdainel MD: [id number] [facility] [address], [place] [address], Ph. 07/20/2021 Overactive Bladder; Urge Incontinence of Urine; Incomplete Emptying of Bladder Carine Mcdaniel MD: [id number] [address], Ph. 06/08/2021 Overactive Bladder; Urge Incontinence of Urine; Incomplete Emptying of Bladder Carine Mcdaniel MD: [address], [place] [address], Ph. Social History Tobacco Smoking Status Never Smoker Vaccine List Vaccine Type COVID-19 (SARS-COV-2) vaccine, unspecifi ed 01/04/2021 08/22/2021 influenza, unspecified formulation 07/06/2020 06/06/2021 pneumococcal, unspecified formulation 07/06/2020 06/06/2021 Plan of Care Patient Instructions Test each program for at least 2 weeks, adjusting amplitude as needed. May remain on a program as long as it is effective. Re turn as needed for reprogramming. Test each program for at least 2 weeks, adjusting amplitude as needed. May remain on a program as long as it is effective. Re turn as needed for reprogramming. Reminders Provider Appointments None recorded. ? ? Lab None recorded. ? ? Referral None recorded. ? ? Procedures None recorded. ? ? Surgeries None recorded. ? ? Imaging None recorded. ? ? Vitals 10/04/2021 10:30AM ESTABLISHED 45 Height Weight BMI 5 ft 7 in 170 lbs 26.6 kg/m2 08/29/2021 12:45PM ESTABLISHED 45 Height Weight BMI 5 ft 7 in 170 lbs 26.6 kg/m2 07/20/2021 03:30PM ESTABLISHED 15 Height Weight BMI 5 ft 7 in 170 lbs 26.6 kg/m2 06/08/2021 08:30AM ESTABLISHED 15 Height Weight BMI 5 ft 7 in 170 lbs 26.6 kg/m2
--- OUTSIDE RECORDS SUMMARY | 2022-07-31 10:21 | XMS_ITS | Clinical Summary ---
:1945 Author Organization [facility] [place] [address] Care Team Providers Name Role Phone Carine Mcdaniel MD Unavailable Yesenia Almaraz MD Unavailable [phone] Ruth Royal [facility] Unavailable Unavailable Abebe Donald MD Unavailable Ana Aguilar DO Primary Care Provider [facility] Care, Tony Unavailable [phone] Allergies Active Allergy Reactions Severity Noted Date Comments Penicillins Rash 09/01/2007 Hylan G-F 20 Arthralgia 03/21/2022 Pain increased less than 24 hours after left knee injec tion March 2022. Medications Medication Sig Dispensed Refills Start End Date Status Date phototherapy [The details of 1 unit 0 A ctive light box the medication 0 are not available because there are pending changes by a home health clinician.] CaneIndications: Wide Base Quad 1 Device 0 Active Gait instability, Cane for home 9 Recurrent falls use. For lifelong fluticasone (50 USE 2 SPRAYS IN 48 g 3 Active mcg per EACH NOSTRIL ONCE 1 actuation) nasal DAILY solution (FLONASE)Indicati ons: Migraine without status migrainosus, not intractable, unspecified migraine type WalkerIndications 2 wheel walker 1 Each 0 Active : Balance with seat for 2 problem, General home use. weakness betamethasone Apply nightly for 60 g 1 Active valerate 0.1% 6wks then Apply 2 (VALISONE 0.1% small film to OINTMENT) 0.1 % affected area ointmentIndicatio twice a week ns: Lichen sclerosus diclofenac Apply 4 g 450 g 1 Active topical topically to 2 (VOLTAREN) 1 % affected area(s) gelIndications: 4 times daily. Acute pain of left knee rivaroxaban Take 1 Tablet (20 90 Tablet 1 Active (XARELTO) 20 mg mg) by mouth once 2 tabletIndications daily with : Pulmonary evening meal. embolus, right (HC) SUMAtriptan 1 tab at start of 9 Tablet 0 Active (IMITREX) 100 mg migraine, take 1 2 tabletIndications tablet 1 hour : Other migraine later if needed without status Max Dose: 200mg migrainosus, not per 24hrs. intractable buPROPion Take 1 Tablet 90 Tablet 1 Active (Wellbutrin XL) (300 mg) by mouth 2 300 mg every morning. Extended-Release tabletIndications : Major depression, recurrent, full remission (HC) QUEtiapine Take 1 Tablet 90 Tablet 1 Activ e (SEROQUEL) 100 mg (100 mg) by mouth 2 tabletIndications at bedtime. Take : Major with 25 mg for depression, total of 125 mg recurrent, full nightly remission (HC) venlafaxine Take 1 Capsule 30 Capsule 1 Ac tive (EFFEXOR XR) 37.5 (37.5 mg) by 2 mg mouth once daily Extended-Release with a meal. Take capsuleIndication with 75 mg s: Major capsule for total depression, of 112.5 mg recurrent, full daily. remission (HC) sennosides-docusa [The details of 0 Active te (SENOKOT S) the medication 2 (8.6-50 mg) are not available tablet because there are pending changes by a home health clinician.] QUEtiapine Take 1-2 Tablets 60 Tablet 0 08/25/20 Ac tive (SEROqueL) 25 mg (25-50 mg) by 2 22 tabletIndications mouth at bedtime. : Major Take with one depression, 100mg tablet for recurrent, full a total of remission (HC) 125-150mg at bedtime. oxyCODONE Take 5 mg by 0 Active (ROXICODONE) 5 mg mouth every 6 2 capsule hours if needed for Pain. Take one tablet as needed by mouth every 4 to 6 hours as needed for pain. acetaminophen SR Take 650 mg by 0 Active (TYLENOL mouth every 8 2 ARTHRITIS) 650 mg hours if needed Extended-Release (pain). tablet venlafaxine Take 1 Capsule 90 Capsule 1 Ac tive (EFFEXOR XR) 75 (75 mg) by mouth 2 mg cp24 once daily with a Extended-Release meal. Take 1 capsuleIndication capsule by mouth s: Major every AM depression, recurrent, full remission (HC) calcium 600 mg Take 1 capsule by 0 0 Discontinued capsule mouth 2 times 2 22 (*Alice ent daily with meals. st ates no longer taking/Not on sending facility l ist) acetaminophen SR Take 1 tablet by 0 Discontinued (ARTHRITIS PAIN mouth one time 6 22 (*Error/Order RELIEF) 650 mg for 1 dose. Max entry error) Extended-Release acetaminophen tablet dose: 4000mg in 24 hrs. Take one tablet every 6-8 hrs as needed. HYDROcodone-aceta 0 07/02/20 Di scontinued minophen (NORCO) 2 22 (*M ed 5-325 mg per complet e/Regime tablet n complete/L evel of care [facility]) QUEtiapine Take 1 Tablet (25 90 Tablet 1 07/26/20 D iscontinued (SEROQUEL) 25 mg mg) by mouth at 2 22 (*Medication tabletIndications bedtime. Take adjustment) : Major with 100 mg tab depression, for total of 125 recurrent, full mg nightly. remission (HC) venlafaxine [The details of 90 Capsule 1 07/31/20 D iscontinued (EFFEXOR XR) 75 the medication 2 22 (Reorder mg cp24 are not available (E -cancel not Extended-Release because there are sent)) capsuleIndication pending changes s: Major by a home health depression, clinician.] recurrent, full remission (HC) QUEtiapine Take 1-2 Tablets 180 Tablet 0 07/26/20 D iscontinued (SEROqueL) 25 mg (25-50 mg) by 2 22 (*Availability/ tabletIndications mouth at bedtime. Formulary : Major Take with one change /Cost of depression, 100mg tablet for m edication) recurrent, full a total of remission (HC) 125-150mg at bedtime. oxyCODONE Take 5 mg by 0 07/30/20 Discont inued (ROXICODONE) 5 mg mouth every 6 2 22 (*Error/Order capsule hours if needed entr y error) for Pain. Take one tablet by mouth every 4 to 6 hours as needed for pain. Active Problems Problem Noted Date Primary osteoarthritis of left knee 03/20/2022 Overview: February 2022: Dr. Aguilar did cortisone injec tion to left knee, only lidocaine effect. March 2022: Dr. Farmer did Synvisc ONE i njection. Moderate dementia without behavioral disturbance 09/26 Overview: SLUMS test 09/26/20 = 19, OCCUPATIONAL T HERAPY consult ordered Pulmonary nodules 04/13/2019 Overview: Being followed by oncology. Thought infl ammatory in nature at last check on CT 03/2019, recommend repeat CT n 1 year 04/2020 CT impression: 1.1 x 0.5 centimet er nodule in the left upper lobe, decreased in size compared to the 03/18/2019 and 12/15/2018. This is most consistent with postinflammatory scarring. No further follow-up is recommended. 2. Otherwise clear lungs. 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 Barnes 2015 with minimal to no benefit. Pain medication agreement 08/02/2015 Lumbar facet arthropathy 05/01/2015 Lumbar foraminal stenosis 05/01/2015 Overview: June 2015 left-sided L5-S1 epidural steroid injection. There was mild benefit. ~ October 2021: Left L5-S1 TF epidural s teroid injection by Dr. Barnes. 80% benefit from lidocaine, no steroid benefit. Sacroiliac joint pain 05/01/2015 Overview: 2014 Dr. Barnes did cortisone injection to the SI joint on the left side with no benefit. Left sided numbness 10/13/2012 Overview: Left sided numbness with tingling due to small vessel disease vrs atypical migraine. Suspected cerebrovascular accident, stat us post TPA administration on 10/02/2012 Gastritis 04/09/2011 Overview: EGD 04/2011 gastritis Iron deficiency anemia, unspecified 04/03/2011 Personal history of colonic polyps 10/31/2010 Overview: Colonoscopy 10/2010 normal repeat in 5 ye ars Colonoscopy 03/2016 normal repeat in 5 ye ars Seasonal affective disorder 05/22/2010 Rule out Generalized Anxiety Disorder 12/11/2009 Lichenification and lichen simplex chronicus 9 Allergic rhinitis, cause unspecified 09/01/2007 Migraine, unspecified, without mention of intractable migraine without 07/21/2007 mention of status migrainosus Insomnia, unspecified 07/21/2007 Unspecified urinary incontinence 07/21/2007 Esophageal reflux 07/21/2007 Mild depression Resolved Problems Problem Noted Date Resolved Date Depression, major, recurrent, mild 04/02/201806/02 MDD (major depressive disorder), recurrent episode, mild 03/09/2018 Depression, major, recurrent, moderate 07/01/2017 0 04/02/2018 Depression, major, recurrent, in partial remission 07/01/2017 Recurrent major depression in remission 10/28/2010 03/19/2016 Major Depression, Recurrent rule out bipolar II affective 10/28/2010 disorder Encounters Date Type Specialty Care Team Description 07/31/2022 Orders Only Emmy العلي <No scans attached> MD [facility] 07/30/2022 Home Care Visit Ricardo Rojas, PT - HO ME VISIT PT 07/30/2022 Home Care Visit Natty Arredondo CIGAR MAKING MACHINE OPERATOR - HOME VISIT 07/30/2022 Travel 07/29/2022 Home Care Visit Heath Hernandez OT - IN ITIAL ASSESSMENT OT 07/29/2022 Office Visit Ana Aguilar Knee Pain/pr oblem (Face to Shawna, DO Face) 07/29/2022 Telephone Germania Saavedra Late Can el Appointment ENGINE EMISSION TECHNICIAN (Cancellation ) 07/29/2022 Travel 07/25/2022 Home Care Visit Ricardo Rojas, PT - OA SIS START OF CARE PT 07/25/2022 Nurse Triage Gracy Claros RN Home Car e 07/25/2022 Telephone Ricardo Rojas, Home Care PT 07/25/2022 Travel 07/24/2022 Telephone Cristiana Combs Home Care (Ref erral Navigation ) 07/23/2022 Telephone Ana Aguilar Outside Orde r (HOME CARE ) Shawna, DO 07/22/2022 Telemedicine Emmy العلي Error-plea se disregard (appt MD [facility] cancellation) 07/22/2022 Travel 07/22/2022 Telephone Ana Aguilar Need Meds Shawna, DO 07/15/2022 Orders Only Scanner <No scans attac hed> 07/10/2022 Office Visit Germania Saavedra, Mental He alth Intake ENGINE EMISSION TECHNICIAN 07/10/2022 Travel 07/09/2022 Orders Only Ana Aguilar <No scans at tached> Shawna, DO 07/08/2022 Travel 07/04/2022 Orders Only Lab, [facility] 07/04/2022 Travel 07/03/2022 Telephone Ana Aguilar Abnormal Lab Results (High Shawna, DO potassium needs to be re-drawn per Dr Abbie Pollard) 07/02/2022 Preop Visit Ana Aguilar Pre-Op Exam (07/15/22 Dr. Shawna DO [facility]); Immunization/In jection; Immunization/In jection (COVID-19 vacci ne) 07/02/2022 Travel 06/06/2022 Telephone Emmy العلي Returning Call MD [facility] 06/05/2022 Office Visit Emmy العلي Follow Up (); Medication MD [facility] Management 06/05/2022 Travel 05/31/2022 Office Visit Teja Nam, Neuropsychol ogical Assessment PhD, LP 05/31/2022 Travel 05/29/2022 Office Visit Ana Aguilar Follow Up DO Shawna 05/29/2022 Travel 05/20/2022 Telephone Ana Aguilar Refill Reque st (Sumatriptan DO Shawna (Imitrex)- NEED S PARTIAL REFILL FILLED L OCALLY) 05/13/2022 Office Visit Elisabeth Sanchez Consult (PE) MD Magdy 05/13/2022 Travel from Last 3 Months Immunizations Name Administration Dates Next Due AMB Influenza, IIV3 (Age >=3 years) 08/16/2013 Preserve Free (Flu Clinic Only) AMB Influenza, IIV3 (Age >=3 07/27/2012, 07/31/2011, 010 years)(Flu Clinic Only) Amb Influenza, Inact (High-dose) (Flu 08/01/2014 Clinic Only) Amb Influenza, Inactivated AIIV4 (Age 1007/24/2020 65+ Years) Preserv Free COVID-19 vaccine (Pendo Systemsech 07/02/2022 30mcg/0.3mL) 12YO+ BIVALENT BOOSTER PF, MDV COVID-19 vaccine (FiftyFiverBioCherrishech 11/30/2020, 11/10/2020 30mcg/0.3mL) PF, MDV Covid-19 Vaccine (Unspecified) 08/22/2021, 01/04/2021 Influenza A (H1N1), Inactivated 10/02/2009 Influenza A (H1N1), Inactivated (Age 1210/02/2009 >=3 Years) Influenza Virus, Unspecified 06/06/2021, 07/24/2020, 020, 07/27/2012, 07/31/2011, 07/25/2010, 10/02/2009, 07/19/2008, 07/28/2006, 08/23/2005 Influenza, High-dose Inactivated 07/25/2016, 07/17/2015 Influenza, IIV3 (Age >=3 years) 10/02/2009, 07/19/2008, 08/06 Influenza, Inactivated AIIV4 (Age 65+ 07/02/2022, 07/18/2021 Years) Preserv Free Influenza, Inactivated IIV3 (Age 65+ 07/16/2019, 07/30/2018, 06/24/2017 Years) Preserv Free Pneumococcal Poly,23-Valent 07/25/2010 (Pneumovax) Pneumococcal conj 13-Valent (Prevnar 12/30/2014 13) Pneumococcal, Unspecified 06/06/2021, 07/06/2020 Td (Age >=7 Years) 08/26/2006 Tdap 05/30/2019, 06/09/2012 Zoster (Shingrix-RZV, recombinant) 09/15/2019, 03/27/2019 Zoster (Zostavax-ZVL, live) 01/20/2008 Family History Medical History Relation Name Comments Psychiatric illness Child 1 Katherine Com Writer Chron ic Depression Psychiatric illness Child 2 Oleksandr Bipolar Diso rder Psychiatric illness Child 3 Mayra Depression Arthritis Father Cancer-colon Father Osteoporosis Mother Anesthesia Malignant No Family History Hyperthermia Anesthesia Problem No Family History Cancer-breast No Family History Cancer-ovarian No Family History Relation Name Status Comments Child 1 Katherine Child 2 Oleksandr Child 3 Mayra Father Mother Social History Tobacco Use Types Packs/Day Years Used Date Never Smoker Smokeless Tobacco: Never Used Tobacco Cessation: Counseling Given: Yes Alcohol Use Standard Drinks/Week Comments Not Currently 0 (1 standard drink = 0.6 oz pure alcoho l) Rarely-wine Alcohol Habits Answer Date Recorded How often do you have a drink containing alcohol? Not asked How many drinks containing alcohol do you have on a Not aske d typical day when you are drinking? How often do you have six or more drinks on one occasion? No t asked Comment: Rarely-wine 08/19/2019 Sex Assigned at Date Recorded Not on file COVID-19 Exposure Response Date Recorded In the last 10 days, have you been in contact with No / Unsu re 07/30/2022 3:14 PM CDT someone who was confirmed or suspected to have Coronavirus/COVID-19? Obstetrics History Para Term AB IAB SAB Ectopic Multiple Living Live Births 3 3 3 Date Outcome GA Total Labor/2nd/3rd Weight Sex Delivery Anes PTL Ashley A 1 A5 Name Clin Labor Para Para Para Last Filed Vital Signs Vital Sign Reading Time Taken Comments Blood Pressure 136/78 07/30/2022 3:43 PM CDT Pulse 78 07/30/2022 3:43 PM CDT Temperature 36.4 ??C (97.6 ??F) 07/30/2022 3:43 PM CDT Respiratory Rate 18 07/30/2022 3:43 PM CDT Oxygen Saturation 99% 07/30/2022 3:43 PM CDT Inhaled Oxygen Concentration - - Weight 82.2 kg (181 lb 4.8 oz) 07/02/2022 10:55 AM CDT Height 163 cm (5' 4.17) 07/02/2022 10:55 AM CDT Body Mass Index 30.95 07/02/2022 10:55 AM CDT Plan of Treatment Upcoming Encounters Date Type Specialty Care Team Description 08/02/2022 Home Care Visit Ricardo Rojas , PT [address] [place] [address] (Wo rk) 08/02/2022 Home Care Visit Natty Arredondo [address] [place], [place] [address] (Wo rk) 08/06/2022 Home Care Visit Ricardo Rojas , PT [address] [place] [address] (Wo rk) 08/06/2022 Home Care Visit Heath Hernandez , OT [address] [place], [place] [address] (Wo rk) 08/08/2022 Home Care Visit Heath Hernandez , OT [address] [place] [address] (Wo rk) 08/09/2022 Home Care Visit Ricardo Rojas , PT [address] [place] [address] (Wo rk) 08/13/2022 Home Care Visit Ricardo Rojas , PT [address] [place] [address] (Wo rk) 08/13/2022 Home Care Visit Heath Hernandez , OT [address] [place], [place] [address] (Wo rk) 08/15/2022 Home Care Visit Heath Hernandez , OT [address] [place], [place] [address] (Wo rk) 08/16/2022 Home Care Visit Ricardo Rojas , PT [address] [place] [address] (Wo rk) 08/20/2022 Home Care Visit Ricardo Rojas , PT [address] [place] [address] (Wo rk) 08/21/2022 Home Care Visit Heath Hernandez , OT [address] [place], [place] [address] (Wo rk) 08/23/2022 Appointment Ricardo Rojas , PT [address] [place] [address] (Wo rk) 08/28/2022 Home Care Visit Heath Hernandez , OT [address] [place], [place] [address] (Wo rk) 09/09/2022 Office Visit D'Zeyad Silva MD [address] [place], [place] [address] (Wo rk) Health Maintenance Due Date Last Done Comments Hepatitis C screening for age 0906/20/1963 18-78 Medicare Wellness for age 65+ 10/15/2022 10/15/2021, 2019, 09/14/2019, Additional history exists BMI (ht and wt on same day) for 07/02/2023 07/02/2022, 10/06, age 18+ 08/27/2021, Additional history exists Depression screening for age 12+ 07/10/2023 07/10/2022, 10/2021, 06/05/2022, Additional history exists Tetanus booster 05/30/2029 05/30/2019, 06/09/2012, 08/26/2006 Tdap Completed 05/30/2019, 06/09/2012 Zoster (shingles) series for age Completed 09/15/2019, , 50+ 01/20/2008 DEXA/DXA scan for age 65+ Completed 10/27/2019, 04/15/2013 , 08/18/2009 Pneumococcal series for age 65+ Completed 06/06/2021, 10/2019, 12/30/2014, Additional history exists COVID-19 vaccine series Completed 07/02/2022, 03/01/2022, 08/22/2021, Additional history exists Influenza for age 65+ Completed 07/02/2022, 07/18/2021, 06/06/2021, Additional history exists Medical Devices Implanted Type Area Customer Support Specialist Device Shelf Model / Identifier Expiration Serial / Date Lot Stimulator 7.7mm 14cc Interstim Ii - [id number] Right: Medtronic Pain 11/19/2022 [id number] / Implanted: Qty: 1 on 08/22/2021 by Carine Mcdaniel MD at [facility] Buttock Therapy [id number] / Procedures Procedure Name Priority Date/Time Associated Diagnosis Comme nts SCAN-RADIOLOGY 07/15/2022 12:00 Results f or this REPORT AM CDT procedure are i n the results section. EKG 12 LEAD Routine 07/09/2022 4:28 PM Pre-op exam CDT PA READING EKG - NO Routine 07/09/2022 4:27 PM Pre-op exam CHARGE, COMP ONLY CDT POTASSIUM Routine 07/04/2022 9:43 AM Hyperkalemia Results f or this CDT procedure are i n the results section. POTASSIUM Routine 07/02/2022 12:32 Pre-op exam Results for this PM CDT procedure are i n the results section. CREATININE Routine 07/02/2022 12:32 Pre-op exam Results for this PM CDT procedure are i n the results section. HEMOGLOBIN Routine 07/02/2022 12:32 Pre-op exam Results for this PM CDT procedure are i n the results section. from Last 3 Months Results SCAN-RADIOLOGY REPORT (07/15/2022 12:00 AM CDT) Narrative This result has an attachment that is no t available. Scanner OTHER EKG 12 LEAD (07/09/2022 4:28 PM CDT) Narrative This result has an attachment that is no t available. Ana Aguilar DO EKG ORD PA READING EKG - NO CHARGE, COMP ONLY (07/09/2022 4:27 PM CDT) Ana Aguilar DO PB - PROVIDER READINGS POTASSIUM (07/04/2022 9:43 AM CDT)Only the most recent of2 resultswithin the time period is included. athologist Signature POTASSIUM 4.7 3.5 - 5.0 07/04/2022 [place] mmol/L 12:41 PM CDT [facility] Specimen Anatomical Collection Method / Collection Time Recei mariam Time (Source) Location / Volume Laterality Blood BLOOD SPECIMEN / Venipuncture / 07/04/2022 9:43 2021 9:44 Unknown Unknown AM CDT AM CDT Ana Aguilar DO CHEMISTRY Performing Organization Address City/State/ZIP Code Phon e Number [facility] [address] [place] [address] HEMOGLOBIN (07/02/2022 12:32 PM CDT) athologist Signature HEMOGLOBIN 14.9 12.0 - 16.0 07/02/2022 [facility] g/dL 12:42 PM CDT [facility] MCV 97 80 - 100 fL 07/02/2022 [facility] 12:42 PM CDT [facility] Specimen Anatomical Collection Method / Collection Time Recei mariam Time (Source) Location / Volume Laterality Blood BLOOD SPECIMEN / Venipuncture / 07/02/2022 12:32 07/02 Unknown Unknown PM CDT 12:35 PM CDT Ana Aguilar DO HEMATOLOGY Performing Organization Address City/State/ZIP Code Phon e Number [facility] [address] [place] [address] (ABNORMAL) CREATININE (07/02/2022 12:32 PM CDT) athologist Signature CREATININE 1.07 0.57 - 1.11 07/03/2022 [facility] mg/dL 7:24 AM CDT [facility] eGFR 53 (L) >90 07/03/2022 [facility] mL/min/1.73 7:24 AM CDT LABORATORY-CENT [facility]2 RAL LABORATORY Comment: As of 2021, eGFR is calcu lated by the CKD-EPI creatinine equation without race adjustment. eGFR can be inf luenced by muscle mass, exercise, and diet. The reported eGFR is an estimation only and is only applicable if the renal function is stable. Specimen Anatomical Collection Method / Collection Time Recei mariam Time (Source) Location / Volume Laterality Blood BLOOD SPECIMEN / Venipuncture / 07/02/2022 12:32 07/02 Unknown Unknown PM CDT 12:35 PM CDT Ana Aguilar DO CHEMISTRY Performing Organization Address City/State/ZIP Code Phon e Number [facility] [address] 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 Explanati on Healthcare Directive 09/28/2014 11:36 AM [facility], 11/19 Latest Code Status on File Code Status Date Activated Date Inactivated Comments Full Code 08/22/2021 9:50 AM 08/22/2021 3:30 PM Code Status Discussion: Unable to Assess Preferences, Provid er to review later Full Code 11/23/2018 8:52 PM 12/02/2018 4:52 PM Care Teams Biostatistics Director Relationship Specialty Start Date End Date Ana Aguilar DO PCP - General Family Practice 11/08/19 [address] [place] [address] Carine Mcdaniel, Surgery - Urology 12/30/[address] [place] [address] Yesenia Almaraz Dermatology 01/03/16 MD Larry [address] [place] [address] Ruth Royal, UNIVERSITY RELATIONS RECRUITER Psychiatry Clinical Nurse Specialist 02/05 Abebe Donald MD Family Practice Family Practice 06/11/19 [address] [place] [address] [facility], 07/23/22 [place] [address] [address]
== END 2022-07-22 08:09 | disposition home or self-care (01) ==
LOC: AMB 07-31 10:09
PROVIDERS: PCP Family Medicine; Visit Provider Family Medicine
DX: R53.1 Weakness (principal)
CPT/HCPCS: A0998

== ENCOUNTER 2022-08-02 22:32 | Outpatient (CLI) | payer OTHER, SELFPAY ==
--- OUTSIDE RECORDS SUMMARY | 2022-09-09 19:49 | XMS_ITS ---
:1945 Author Care Team Providers Name Role Phone [facility] Primary Care Provider [phone] Allergies Code Code System Name Reaction [...] - IMPLANT NEUROELECT RODES 06/21/2019 Cystometrogram W/vp patient&up Information not a vailable Notes: 06/21/2019 - [...] US URINE CAPACITY MEASURE 03/14/2014 Cystometrogram W/vp patient&up Information not a vailable Notes: 03/14/2014 - [...] - ELECTRO-UROFLOWMET RY FIRST 04/03/2011 Esophagoscopy Flexible [place] Information not available Notes: 04/03/2011 - ESOPHAGOSCOPY [...] stimul, Implant neuroelectrodes, Implant neuroelectrodes, Cystometrogram w/vp patient&up, Electro-uroflowmetry first, Intraabdominal pressure test, Anal/urinary m uscle study, Cystometrogram w/vp patient&up, Int raabdominal pressure test, Anal/urinary muscle study, [...] HN - Patient indicated: Cystometrogram w /vp patient&up, Electro-uroflowmetry first, Intraabdominal pressure test, Anal/urinary muscle study, Cystometrogram w/vp patient&up, Intraabdominal pressure test, Anal/ur inary muscle study and Electro-uroflowme try first are not accurate. Results Lab Results None recorded. Past Encounters Encounter Date Diagnosis Provider 10/04/2021 Overactive Bladder; Urge Incontinence Malika Lozano MD: [address] [facility], [place] [phone], Ph. 10/04/2021 Overactive Bladder Carine Mcdaniel MD: [address] [facility] [facility] [address], [place] [phone], Ph. 08/29/2021 Overactive Bladder Carine Mcdaniel MD: [address] [facility] [facility] [address] [place] [address], Ph. 07/20/2021 Overactive Bladder; Urge Incontinence Malika Lozano MD: [address]; Incomplete [address], [place], [place] [phone], Ph. 06/08/2021 Overactive Bladder; Urge Incontinence Malika Lozano MD: [address]; Incomplete [address], [place], [place] [phone], Ph. Social History Tobacco Smoking Status Never [...]
--- OUTSIDE RECORDS SUMMARY | 2022-09-09 19:49 | XMS_ITS | Clinical Summary ---
:1945 Author Organization [facility] Address [address], [place] [address] Care Team Providers Name Role Phone Tracee Batres Primary Care Provider Unavailable Source Comments You are receiving this document as you are listed as the primary care provider,follow-up provider, or the patient has been referred to you for consultation.This is in compliance with the Medicare and Medicaid EHR Incentive Program,which states Providers who transition their patient to another setting of careor provider of care or refers their patient to another provider of care shouldprovide summarycare record for each transition of care or referral. [facility] Allerg[facility] Active Allergy Reactions Severity Noted Date Comments Erythromycin Rash 08/03/2022 Hylan G-F 20 Unknown 08/03/2022 [facility] Penicillins Hives High 08/03/2022 Medications Medication Sig Dispensed Refills Start Date End Date Status buPROPion Take 300 mg by 0 Activ e (WELLBUTRIN XL) 300 mouth daily. MG 24 hour release tabletIndications: Major Depressive Disorder QUEtiapine Take 100 mg by 0 Acti ve (SEROQUEL) 100 MG mouth daily at tabletIndications: bedtime. Major Depressive Disorder QUEtiapine Take 25 mg by mouth 0 Active (SEROQUEL) 25 MG daily at bedtime. tabletIndications: Major Depressive Disorder rivaroxaban Take 20 mg by mouth 0 Active (XARELTO) 20 MG every evening with tabletIndications: a meal. Pulmonary Embolism SUMAtriptan Take 100 mg by 0 Act ashlee (IMITREX) 100 MG mouth as needed for tablet Migraine. at onset of headache; may repeat one time in 2 hours if headache recurs. venlafaxine Take 75 mg by mouth 0 Active (EFFEXORXR) 75 MG daily. 24 hour release capsuleIndications: Major Depressive Disorder venlafaxine Take 37.5 mg by 0 Ac tive (EFFEXORXR) 37.5 MG mouth daily. 24 hour release capsuleIndications: Major Depressive Disorder oxyCODONE Take 0.5 Tablets 10 Tablet 0 08/09/2022 Ac tive (ROXICODONE) 5 MG (2.5 mg) by mouth immediate release every 6 hours as tablet needed for Pain. Max daily dose of 6 tablets amLODIPine Take 1 Tablet (5 30 Tablet 0 08/10/2022 A ctive (NORVASC) 5 MG mg) by mouth daily. tabletIndications: Indications: High Hypertension Blood Pressure Disorder Do not start before August 10, 2022. hydrOXYzine pamoate Take 1 Capsule (25 20 Capsule 0 08/09/2022 Active (VISTARIL) 25 MG mg) by mouth every capsule 6 hours as needed for Pain. polyethylene glycol Take 1 Packet (17 14 Each 0 08/09/2022 Active (MIRALAX) 17 g g) by mouth daily. packetIndications: Indications: Constipation Constipation secondary to secondary to oxycodone oxycodone senna (SENOKOT) 8.6 Take 2 Tablets by 20 Tablet 0 08/09/2022 Active MG tablet mouth two times daily as needed for Constipation. acetaminophen Take 2 Tablets 84 Tablet 0 08/09/2022 (TYLENOL) 500 MG (1,000 mg) by mouth 2 tablet three times a day for 14 days. Maximum acetaminophen dose is 4000 mg in 24 hours lidocaine Apply 1 Patch to 14 Patch 0 08/10/2022 Ex pired (ASPERCREAM) 4 % skin daily for 14 2 patch days. Cut in half and apply both halves to left knee. Leave on for up to 12 hours in a 24 hour period, then remove. Do not start before August 10, 2022. Active Problems Problem Noted Date Left knee pain 08/03/2022 Falls frequently 08/03/2022 Recurrent major depressive disorder, in full remission 08/03/2022 Hx of pulmonary embolus 08/03/2022 Chronic kidney disease, stage 3 unspecified 08/03/2022 Encounters Date Type Specialty Care Team Description 08/13/2022 Orders Only Provider, MD Ochoa 08/03/2022 - Hospital Encounter Chester La DO Status post left knee replacement (Prima ry Dx); 08/09/2022 Kaelyn Geller Acute pa in of left knee; MD [place] frequently Meet Jimenez MD from Last 3 Months Social History Tobacco Use Types Packs/Day Years Used Date Smoking Tobacco: Never Assessed Food Insecurity Answer Date Recorded Within the past 12 months, you worried that your food would Never true 08/04/2022 run out before you got money to buy more. Within the past 12 months, the food you bought just didn't N ever true 08/04/2022 last and you didn't have money to get more. Sex Assigned at Date Recorded Not on file Last Filed Vital Signs Vital Sign Reading Time Taken Comments Blood Pressure 167/84 08/09/2022 7:56 AM CDT Pulse 79 08/09/2022 7:56 AM CDT Temperature 36.7 ??C (98.1 ??F) 08/09/2022 7:56 AM CDT Respiratory Rate 20 08/09/2022 7:56 AM CDT Oxygen Saturation 92% 08/09/2022 7:56 AM CDT Inhaled Oxygen Concentration - - Weight 80.6 kg (177 lb 9.6 oz) 08/06/2022 4:29 AM CDT Height 167.6 cm (5' 6) 08/03/2022 10:35 PM CDT Body Mass Index 28.67 08/03/2022 10:35 PM CDT Plan of Treatment Health Maintenance Due Date Last Done Comments Hep C Screening (Preventive 1945 Services) Medicare Welcome Visit 1945 COVID-19 Vaccine (#1) 1945 DTaP/Tdap/Td (1 - Tdap) 1963 Zoster/Shingles (1 of 2) 1994 Dexa 2009 Pneumococcal 65+ Yrs (1 - 2009 06/06/2021, PCV) 07/06/2020 Influenza (#1) 2022 06/06/2021, 07/06/2020 HepA Aged Out No longer eligib le based on patient's age to complete this to pic HepB Aged Out No longer eligib le based on patient's age to complete this to pic Hib Aged Out No longer eligib le based on patient's age to complete this to pic IPV (Polio) Aged Out No longer eligib le based on patient's age to complete this to pic MCV4 Aged Out No longer eligib le based on patient's age to complete this to pic Procedures Procedure Name Priority Date/Time Associated Comments Diagnosis IMAGING 08/13/2022 COMPLETE BLOOD Routine 08/08/2022 4:26 PM Results for this COUNT-W/DIFF CDT procedure are i n the results section. CBC AND DIFFERENTIAL Routine 08/08/2022 4:26 PM R esults for this PANEL CDT procedure are i n the results section. BASIC METABOLIC PANEL Routine 08/08/2022 4:26 PM Results for this CDT procedure are i n the results section. from Last 3 Months Results IMAGING (08/13/2022) Anatomical Region Laterality Modality Other Narrative This result has an attachment that is no t available. Interface Provider MD DUMMY/OTHER/AR (ABNORMAL) Complete Blood Count-W/Diff (08/08/2022 4:26 PM CDT) Analysis Performed At Patho logist Time Signature WBC 6.5 3.5 - 10.5 08/08/2022 [facility] x10(9)/L 5:11 PM CDT [facility] RBC 4.28 3.90 - 08/08/2022 [facility] 5.03 5:11 PM CDT [facility] x10(12)/L [facility] Hemoglobin 13.3 12.0 - 08/08/2022 [facility] 15.5 g/dL 5:11 PM CDT [facility] HCT 40.7 34.9 - 08/08/2022 [facility] 44.5 % 5:11 PM CDT [facility] MCV 95.1 80.0 - 08/08/2022 [facility] 100.0 fL 5:11 PM CDT [facility] MCH 31.1 27.6 - 08/08/2022 [facility] 33.3 pg 5:11 PM CDT [facility] MCHC 32.7 31.5 - 08/08/2022 [facility] 35.2 g/dL 5:11 PM CDT [facility] RDW 14.0 11.9 - 08/08/2022 [facility] 15.5 % 5:11 PM CDT [facility] Platelets 391 150 - 450 08/08/2022 [facility] x10(9)/L 5:11 PM CDT [facility] Immature Gran % 0.3 0.0 - 0.5 08/08/2022 [facility] L % 5:11 PM CDT [facility] Neutrophil 3.7 1.7 - 7.0 08/08/2022 [facility] Absolute 10(9)/L 5:11 PM CDT [facility] Lymphocyte 1.7 1.0 - 4.8 08/08/2022 [facility] Absolute 10(9)/L 5:11 PM CDT [facility] Monocytes 1.0 (H) 0.2 - 0.9 08/08/2022 [facility] Absolute 10(9)/L 5:11 PM CDT [facility] Eosinophil 0.1 0.0 - 0.5 08/08/2022 [facility] Absolute 10(9)/L 5:11 PM CDT [facility] Basophil 0.0 0.0 - 0.3 08/08/2022 [facility] Absolute 10(9)/L 5:11 PM CDT [facility] Specimen Anatomical Collection Method / Collection Time Recei mariam Time (Source) Location / Volume Laterality Blood Venipuncture / 08/08/2022 4:26 08/08/2022 4:40 Unknown PM CDT PM CDT Kaelyn Geller MD LAB_1 Performing Organization Address City/State/[facility] Code Phon e Number [address] [phone] [facility] (ABNORMAL) Basic Metabolic Panel (08/08/2022 4:26 PM CDT) P athologist Signature Sodium 138 136 - 145 08/08/2022 [facility] mmol/L 5:02 PM CDT [facility] Potassium 3.9 3.5 - 5.1 08/08/2022 [facility] mmol/L 5:02 PM CDT [facility] Chloride 104 98 - 109 08/08/2022 [facility] mmol/L 5:02 PM CDT [facility] CO2 20 20 - 29 08/08/2022 [facility] mmol/L 5:02 PM CDT [facility] Anion Gap 14 7 - 16 08/08/2022 [facility] mmol/L 5:02 PM CDT [facility] Calcium 9.2 8.4 - 10.4 08/08/2022 [facility] mg/dL 5:02 PM T [facility] BUN 27 (H) 7 - 26 08/08/2022 [facility] mg/dL 5:[address] [facility] Creatinine 1.26 (H) 0.55 - 08/08/2022 [facility] 1.02 mg/dL 5:02 PM T [facility] Glucose 88 70 - 100 08/08/2022 [facility] mg/dL 5:[address] [facility] Comment: The given reference range is fo r the fasting state. Non-fasting reference range for glucose is 70 - 180 mg/dL. GFR, Estimated 44 (L) >60 mL/min/1.73m2 08/08/2022 5:02 [facility] Specimen Anatomical Collection Method / Collection Time Recei mariam Time (Source) Location / Volume Laterality Blood Venipuncture / 08/08/2022 4:26 08/08/2022 4:40 Unknown PM CDT PM CDT Kaelyn Geller MD LAB_1 Performing Organization Address City/State/[facility] Code Phon e Number [facility] [address] [place] [address] [facility] from Last 3 Months Insurance Payer Benefit Plan / Subscriber ID Effective Phone Address T e Group Dates MEDICA MEDICA [id number] 2021-Pres [phone] Medic are [facility] GOVERNMENT ent [phone] [employer] [place] [id number] Guarantor Name Account Type Relation to Date of Phone Billing Address Patient Melanie Frederick Personal/Famil Self 1945 [address] (Home) [place] [phone] (Work) Melanie Frederick Personal/Famil Self [id number] (Home) [place] [phone] (Work) Melanie Frederick Personal/Famil Self 1945 [address] (Home) [place] [address] Asael Frederick Personal/Famil Self 1945 [address] (Home) [phone] [place] (Work) [id number] Advance Directives Latest Code Status on File Code Status Date Activated Date Inactivated Comments Full Code 08/03/2022 9:58 PM 08/09/2022 12:20 PM Care Teams Statistics Manager Relationship Specialty Start Date End Date Tracee Batres PCP - General 01/07/11
--- OUTSIDE RECORDS SUMMARY | 2022-09-09 19:49 | XMS_ITS | Encounter Summary ---
:1945 Author Organization [facility] Address [address], [place] [address] Care Team Providers Name Role Phone Tracee Batres Primary Care Provider Unavailable Encounter Details Date Type Department Care Team Description 08/13/2022 Orders Only HIM DEPARTMENT Provider, Lakeshia junior [place] [address] Social History Tobacco Use Types Packs/Day Years [...] Assigned at Date Recorded Not on file documented as of this encounter Plan of Treatment Not on filedocumented as of this encounter Procedures Procedure Name Priority Date/Time Associated Diagnosis Comme nts IMAGING 08/13/2022 documented in this encounter Results IMAGING (08/13/2022) Anatomical Region Laterality Modality Other Narrative This result has an attachment that is no t available. Interface Provider DUMMY/OTHER/AR documented in this encounter Visit Diagnoses Not on filedocumented in this encounter Care Teams Helicopter Pilot Relationship Specialty Start Date End Date Tracee Batres PCP - General 01/07/11 documented as of this encounter
--- OUTSIDE RECORDS SUMMARY | 2022-09-09 19:50 | XMS_ITS | Clinical Summary ---
:1945 Author Organization [facility] [place] [address] Care Team Providers Name Role Phone Carine Mcdaniel MD Unavailable Yesenia Almaraz MD Unavailable [phone] Ruth Royal [facility] Unavailable Unavailable Abebe Donald MD Unavailable Ana Aguilar DO Primary Care Provider [facility], Tony Unavailable [phone] Allergies Active Allergy Reactions Severity Noted Date Comments Penicillins Rash 09/01/2007 Hylan G-F 20 Arthralgia 03/21/2022 Pain increased less than 24 hours after left knee injec tion March 2022. Medications Medication Sig Dispensed Refills Start End Date Status Date CaneIndications: Wide Base Quad 1 Device 0 Active Gait instability, Cane for home 9 Recurrent falls use. For lifelong fluticasone (50 USE 2 SPRAYS IN 48 g 3 Active mcg per actuation) EACH NOSTRIL 1 nasal solution ONCE DAILY (FLONASE)Indicatio ns: Migraine without status migrainosus, not intractable, unspecified migraine type WalkerIndications: 2 wheel walker 1 Each 0 Active Balance problem, with seat for 2 General weakness home use. betamethasone Apply nightly 60 g 1 Ac tive valerate 0.1% for 6wks then 2 (VALISONE 0.1% Apply small OINTMENT) 0.1 % film to ointmentIndication affected area s: Lichen twice a week sclerosus diclofenac topical Apply 4 g 450 g 1 A ctive (VOLTAREN) 1 % topically to 2 gelIndications: affected Acute pain of left area(s) 4 times knee daily. rivaroxaban Take 1 Tablet 90 Tablet 1 Acti ve (XARELTO) 20 mg (20 mg) by 2 tabletIndications: mouth once Pulmonary embolus, daily with right (HC) evening meal. SUMAtriptan 1 tab at start 9 Tablet 0 Act ashlee (IMITREX) 100 mg of migraine, 2 tabletIndications: take 1 tablet 1 Other migraine hour later if without status needed Max migrainosus, not Dose: 200mg per intractable 24hrs. sennosides-docusat [The details of 0 Active e (SENOKOT S) the medication 2 (8.6-50 mg) tablet are not available because there are pending changes by a home health clinician.] oxyCODONE Take 5 mg by 0 Active [...] Capsule 1 Ac tive (EFFEXOR XR) 75 mg (75 mg) by 2 cp24 mouth once Extended-Release daily with a capsuleIndications meal. : Major depression, recurrent, full remission (HC) QUEtiapine Take 1 Tablet 90 Tablet 1 Activ e (SEROQUEL) 100 mg (100 mg) by 2 tabletIndications: mouth at Major depression, bedtime. recurrent, full remission (HC) buPROPion Take 1 Tablet 90 Tablet 1 Active (Wellbutrin XL) (300 mg) by 2 300 mg mouth every Extended-Release morning. tabletIndications: Major depression, recurrent, full remission (HC) polyethylene Mix 17 g in 0 Activ e glycol (MIRALAX; liquid then 2 GLYCOLAX) 17 g take by mouth. packet Mix 17 g in liquid then take by mouth. lisinopriL Take 1 Tablet 0 Activ e (PRINIVIL; (5 mg) by mouth 2 ZESTRIL) 5 mg once daily. tablet phototherapy light [The details of 1 unit 0 08/16 Discontinued box the medication 0 22 (*Err or/Order are not entry erro r) available because there are pending changes by a home health clinician.] buPROPion Take 1 Tablet 90 Tablet 1 09/06/20 Discon tinued (Wellbutrin XL) (300 mg) by 2 22 (R eorder 300 mg mouth every (E-cance l not Extended-Release morning. sen t)) tabletIndications: Major depression, recurrent, full remission (HC) QUEtiapine Take 1 Tablet 90 Tablet 1 09/06/20 Disco ntinued (SEROQUEL) 100 mg (100 mg) by 2 22 (*Medication tabletIndications: mouth at a djustment) Major depression, bedtime. Take recurrent, full with 25 mg for remission (HC) total of 125 mg nightly venlafaxine Take 1 Capsule 30 Capsule 1 09/09/20 Di scontinued (EFFEXOR XR) 37.5 (37.5 mg) by 2 22 (*Medication mg mouth once adjustmen t) Extended-Release daily with a capsuleIndications meal. Take with : Major 75 mg capsule depression, for total of recurrent, full 112.5 mg daily. remission (HC) QUEtiapine Take 1-2 60 Tablet 0 08/25/20 (SEROqueL) 25 mg Tablets (25-50 2 22 tabletIndications: mg) by mouth at Major depression, bedtime. Take recurrent, full with one 100mg remission (HC) tablet for a total of 125-150mg at bedtime. venlafaxine Take 1 Capsule 90 Capsule 1 09/06/20 Di scontinued (EFFEXOR XR) 75 mg (75 mg) by 2 22 (Reorder cp24 mouth once (E-cancel not Extended-Release daily with a sent)) capsuleIndications meal. Take 1 : Major capsule by depression, mouth every AM recurrent, full remission (HC) oxyCODONE Take 2.5 mg by 0 09/09/20 Disco ntinued (ROXICODONE) 5 mg mouth every 6 2 22 (Duplicate immediate release hours if th erapy tablet needed. (E-cancel not sent)) Active Problems Problem Noted Date Primary osteoarthritis [...] signed 06/26/2017 Overview: 06/27/16 signed Ruth Royal, SENIOR HADOOP DEVELOPER-BC , TROUBLE OPERATOR psychiatry/hc Tear of left acetabular labrum 09/13/2015 [...] Encounters Date Type Specialty Care Team Description 09/09/2022 Office Visit Emmy العلي Follow Up [facility] 09/09/2022 Travel 08/28/2022 Telephone Ana Aguilar Questio ns (Blood Pressure) DO 08/20/2022 Telephone Ana Aguilar Questio ns (Options for DO continued care) 08/20/2022 Home Care Visit Ricardo Rojas, PT CARE COORDINATION 08/16/2022 Orders Only Jeana Rodriguez RN <No sca ns attached> 08/12/2022 Telephone Emmy العلي Medication Management [facility] 08/09/2022 Home Care Visit Ricardo Rojas, PT PT - MISSED VISIT 08/08/2022 Home Care Visit Natty Arredondo GREENHOUSE SPECIALIST - MISSED VISIT 08/08/2022 Home Care Visit Natty Arredondo GREENHOUSE SPECIALIST - MISSED VISIT 08/06/2022 Home Care Visit Ricardo Rojas, PT PT - MISSED VISIT 08/06/2022 Travel 08/05/2022 Home Care Visit Heath Hernandez, OT OT - MISSED VISIT 08/05/2022 Home Care Visit Anisa Soto, CARE COORDINATION ABERNATHY 08/04/2022 Home Care Visit Ricardo Rojas, PT PT - OASIS TRANSFER 08/03/2022 Home Care Visit Heath Hernandez, OT OT - MISSED VISIT 08/03/2022 Orders Only Scanner <No scans attac hed> 08/02/2022 Home Care Visit Natty Arredondo GREENHOUSE SPECIALIST - HOME VISIT 08/02/2022 Home Care Visit Ricardo Rojas, PT PT - HOME VISIT 08/02/2022 Travel 07/31/2022 Orders Only Emmy العلي <No scans attached> MD [place] 07/30/2022 Home Care Visit Ricardo Rojas, PT PT - HOME VISIT 07/30/2022 Home Care Visit Natty Arredondo GREENHOUSE SPECIALIST - HOME VISIT 07/30/2022 Travel 07/29/2022 Home Care Visit Heath Hernandez, OT OT - INITIAL ASSESSMENT 07/29/2022 Office Visit Ana Aguilar Knee Pa in/problem (Face to DO Face) 07/29/2022 Telephone Germania Saavedra Late [facility] el Appointment 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 ) 07/29/2022 Travel 07/26/2022 Home Care Visit Ricardo Rojas, PT GREENHOUSE SPECIALIST - MISSED VISIT 07/25/2022 Home Care Visit Ricardo Rojas, PT PT - OASIS START OF CARE 07/25/2022 Nurse Triage Gracy Claros, RN Home Car e 07/25/2022 Telephone Ricardo Rojas, PT Home Ca re 07/25/2022 Travel 07/24/2022 Telephone Cristiana [facility] (Ref erral Navigation ) 07/23/2022 Telephone Ana Aguilar, Outside Order (HOME CARE ) DO 07/22/2022 Telemedicine Emmy العلي-plea se disregbhumika Orourke MD (appt cancellat ion) 07/22/2022 Travel 07/22/2022 Telephone Ana Aguilar, Need Me ds DO 07/15/2022 Orders Only Scanner <No scans attac hed> 07/15/2022 Orders Only Scanner <No scans attac hed> 07/10/2022 Office Visit Germania Saavedra, Mental He alth Intake CIRCUIT BOARD DRAFTER 07/10/2022 Travel 07/09/2022 Orders Only Ana Aguilar, <No sca ns attached> DO 07/08/2022 Travel 07/04/2022 Orders Only Lab, [facility] 07/04/2022 Travel 07/03/2022 Telephone Ana Aguilar, Abnorma l Lab Results (High DO potassium needs to be re-drawn per Dr Abbie Pollard) 07/02/2022 Preop Visit Ana Aguilar, Pre-Op Exam (07/15/22 Dr. SEGURA [facility]); Immunization/In jection; Immunization/In jection (COVID-19 vacci ne) 07/02/2022 Travel from Last 3 Months Immunizations Name Administration Dates Next Due AMB Influenza, IIV3 (Age >=3 years) 08/16/2013 Preserve Free (Flu Clinic Only) AMB Influenza, IIV3 (Age >=3 07/27/2012, 07/31/2011, 010 years)(Flu Clinic Only) Amb Influenza, Inact (High-dose) (Flu 08/01/2014 Clinic Only) Amb Influenza, Inactivated AIIV4 (Age 1007/24/2020 65+ Years) Preserv Free COVID-19 vaccine (Logopro 07/02/2022 30mcg/0.3mL) 12YO+ BIVALENT BOOSTER PF, MDV COVID-19 vaccine (Logopro 11/30/2020, 11/10/2020 30mcg/0.3mL) PF, MDV Covid-19 Vaccine [...] Name Comments Psychiatric illness Child 1 [employer] 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 Obstetrics History Para Term AB IAB SAB Ectopic Multiple Living Live Births 3 3 3 Date Outcome GA Total Labor/2nd/3rd Weight Sex Delivery Anes PTL Ashley A 1 A5 Name Clin Labor Para Para Para Last Filed Vital Signs Vital Sign Reading Time Taken Comments Blood Pressure 138/86 09/09/2022 1:31 PM OCCUPATIONAL HEALTH NURSE MANAGER Pulse 98 09/09/2022 1:31 PM OCCUPATIONAL HEALTH NURSE MANAGER Temperature 36.3 ??C (97.4 ??F) 08/02/2022 10:02 [...] Encounters Date Type Specialty Care Team Description 03/10/2023 Office Visit Zeyad العلي MD [address] 5 [phone] (Wo rk) Health Maintenance Due Date Last Done Comments Hepatitis C screening for age 0906/20/1963 18-78 Medicare Wellness for age 65+ 10/15/2022 10/15/2021, 2019, 09/14/2019, Additional history exists BMI (ht and wt on same day) for 07/02/2023 07/02/2022, 10/06, age 18+ 08/27/2021, Additional history exists Depression screening for age 12+ 09/09/2023 09/09/2022, 02/2022, 06/06/2022, Additional history exists Tetanus booster 05/30/2029 05/30/2019, [...] history exists Medical Devices Implanted Type Area Clay Pigeon Setter Device Shelf Model / Identifier Expiration Serial / Date Lot Stimulator 7.7mm 14cc Interstim Ii - [id number] Right: Medtronic Pain 11/19/2022 [id number] / Implanted: Qty: 1 on 08/22/2021 by Carine Mcdaniel MD at [facility] Buttock Therapy [id number] / Procedures Procedure Name Priority Date/Time Associated Diagnosis Comme nts SCAN-RADIOLOGY 08/03/2022 12:00 Results f or this REPORT AM CDT procedure are i n the results section. SCAN-RADIOLOGY 07/15/2022 12:00 Results f or this REPORT AM CDT procedure are i n the results section. SCAN-OPERATIVE/PROC 07/15/2022 12:00 Resu lts for this EDURE REPORT AM CDT procedure are i n the results section. EKG 12 LEAD Routine 07/09/2022 4:28 PM Pre-op exam CDT NC READING EKG - NO Routine 07/09/2022 4:27 [...] from Last 3 Months Results SCAN-RADIOLOGY REPORT (08/03/2022 12:00 AM CDT)Only the most recent of2 results within the time period is included. Narrative This result has an attachment that is no t available. Scanner OTHER SCAN-OPERATIVE/PROCEDURE REPORT (07/15/2022 12:00 AM CDT) Narrative This result has an attachment that is no t available. Scanner OTHER EKG 12 LEAD (07/09/2022 4:28 PM CDT) Narrative This result has an attachment that is no t available. Ana Aguilar DO EKG ORD NC READING EKG - NO CHARGE, COMP ONLY (07/09/2022 4:27 PM CDT) Ana Aguilar DO PB - PROVIDER READINGS POTASSIUM (07/04/2022 9:43 AM CDT)Only the most recent of2 resultswithin the time period is included. athologist Signature POTASSIUM 4.7 3.5 - 5.0 07/04/2022 [place] mmol/L 12:41 PM CDT [facility] Specimen Anatomical Collection Method / Collection Time Recei mariam Time (Source) Location / Volume Laterality Blood BLOOD SPECIMEN / Venipuncture / 07/04/2022 9:43 2021 9:44 Unknown Unknown AM CDT AM CDT Ana Aguilar DO CHEMISTRY Performing Organization Address City/State/ZIP Code Phon e Number [facility] [address] [place] [address] HEMOGLOBIN (07/02/2022 12:32 PM CDT) athologist Signature HEMOGLOBIN 14.9 12.0 - 16.0 07/02/2022 [facility] g/dL 12:42 PM CDT [facility] MCV 97 80 - 100 fL 07/02/2022 [facility] 12:42 PM CDT [facility] Specimen Anatomical Collection Method / Collection Time Recei mariam Time (Source) Location / Volume Laterality Blood BLOOD SPECIMEN / Venipuncture / 07/02/2022 12:32 07/02 Unknown Unknown PM CDT 12:35 PM CDT Ana Aguilar DO HEMATOLOGY Performing Organization Address City/State/ZIP Code Phon e Number [facility] [address] [place] [address] (ABNORMAL) CREATININE (07/02/2022 12:32 PM CDT) athologist Signature CREATININE 1.07 0.57 - 1.11 07/03/2022 [facility] mg/dL 7:24 AM CDT [facility] eGFR 53 (L) >90 07/03/2022 [facility] mL/min/1.73 7:24 AM CDT LABORATORY-CENT m2 [...] Organization Address City/State/ZIP Code Phon e Number [facility] [address] [place] [address] LABORATORY-CENTRAL [address] LABORATORY from Last 3 Months Insurance Payer Benefit Plan / Subscriber ID Effective Dates Phone Addre ss Type Group MEDICA MR MEDICA [id number] 2021-Presen MEDICA ADVANTAGE MR t [facility] [address] [address] [place] [phone] MEDICARE PART MEDICARE PART A [id number] 2009-Presen ATTN: CLAIMS A - HB USE HB ONLY t [address] ONLY [facility] [place] [address] MEDICA PPS HC MEDICA [id number] 2021-Presen MEDICA ADVANTAGE MR t GOVERNMENT PPS PROGRAMS [address] [address] [place] [id number] Advance Directives Documents on File Type Date Recorded Patient Dehydrogenation Supervisor Explanati on Healthcare Directive 09/28/2014 11:36 AM [facility], 11/19 Latest Code Status on File Code Status Date Activated Date Inactivated Comments Full Code 08/22/2021 9:50 AM 08/22/2021 3:30 PM Code Status Discussion: Unable to Assess Preferences, Provid er to review later Full Code 11/23/2018 8:52 PM 12/02/2018 4:52 PM Care Teams Clinical Dietician Relationship Specialty Start Date End Date Ana Aguilar, PCP - General Family Practice 11/08/19 [address] [place] [address] Carine Mcdaniel, Surgery - Urology 12/30/[address] [place] [id number] Yesenia Almaraz Dermatology 01/03/16 MD [place] [address] [place], [place] [phone] Ruth Royal, TROUBLE OPERATOR Psychiatry Clinical Nurse Specialist 02/05 Abebe Donald MD Family Practice Family Practice 06/11/19 [address] [place] [address] [facility], 07/23/22 [place] [address] [place] [address]
--- OUTSIDE RECORDS SUMMARY | 2022-09-09 19:50 | XMS_ITS | Encounter Summary ---
:1945 Author Organization [facility] Address [address], [place] [address] Care Team Providers Name Role Phone Tracee Batres Primary Care Provider Unavailable Reason for Referral Consult/Transfer Care (Routine) - New Request Specialty Diagnoses / Procedures Referred By Contact Refer red To Contact Diagnoses Status post left knee replacement Acute pain of left knee Kaelyn Geller MD [address] [place] [address] Referral ID Status Reason Start Date Expiration Date Visits V isits Requested Authorized [id number] New Request 08/09/2022 11/06/2022 1 1 Scheduling Instructions Your provider has recommended an appoint ment with an [facility] and [employer] Buyer. You can quickly make your ap pointment online at [employer]/schedule. You can als o call [phone] for help scheduling your appointment. We suggest you call your [employer] insurance company about your coverage and benefits for this appointment. Therapies (Routine) Specialty Diagnoses / Procedures Referred By Contact Refer red To Contact [address] [address] Referral ID Status Reason Start Date Expiration Date Visits Requ ested Visits Authorized Scheduling Instructions This order is your clinician's recommend ation for a service and is not an insurance referral which authorizes payment. The r ecommended service and/or location may not be covered by your insurance plan. Please c all the number on your insurance card to find out your specific benefits and coverage for the recommended services and/or location. If you need help scheduling the recommen ded services, please ask your clinician's staff to assist you. Therapies (Routine) Specialty Diagnoses / Procedures Referred By Contact Refer arsalan To Contact [address] [address] Referral ID Status Reason Start Date Expiration Date Visits Requ ested Visits Authorized Scheduling Instructions This order is your clinician's recommend ation for a service and is not an insurance referral which authorizes payment. The r ecommended service and/or location may not be covered by your insurance plan. Please c all the number on your insurance card to find out your specific benefits and coverage for the recommended services and/or location. If you need help scheduling the recommen ded services, please ask your clinician's staff to assist you. Specialty Diagnoses / Procedures Referred By Contact Refer arsalan To Contact Kaelyn Geller MD [address] [place] [address] Referral ID Status Reason Start Date Expiration Date Visits Requ ested Visits Authorized Encounter Details Date Type Department Care Team Description 08/03/2022 - Hospital Encounter [facility] [place] La DO [address] [place] [address] Status post left knee replacement (Prima ry Dx); 08/09/[address] [place] [address] Kaelyn Geller MD [address] [place] [address] Acute pain of left knee; [place] [address] Meet Jimenez MD [address] [place] [address] Falls frequently [phone] Social History Tobacco Use Types Packs/Day Years [...] on file documented as of this encounter Last Filed Vital Signs Vital Sign Reading [...] Mass Index 28.67 08/03/2022 10:35 PM CDT documented in this encounter Discharge Summaries Kaelyn Geller MD - 08/09/2022 8:48 AM CDT Images from the original note were not included. [facility] Discharge Summary Report Admit Date/Time: 08/03/2022 9:50 PM Discharge Date: 08/09/2022 Service: Hospital Medicine Staff MD: Kaelyn Geller MD Discharge diagnoses: Principal Problem: Left knee pain Active Problems: Falls frequently Recurrent major depressive disorder, in full remission (HRC) Hx of pulmonary embolus Chronic kidney disease, stage 3 unspecified (HRC) Procedures: * No surgery found * Pending results: None Issues for Outpatient Followup: Left knee pain s/p LTKA - Continue therapies at TCU. HTN - Started amlodipine. HPI (copied from H&P): 77 y.o. female with PMH of L TKA for OA on 07/15, Depression, CDKII, Hx of PE on Xarelto and insomnia who presented to [facility] after a second fall at home post operative for L TKA on 07/15.She had gone home and fallen, returned for evaluation and sent home again. Fell again. Both times she feels that her Oxycodone meds made her dizzy and fall. In ED [facility], evaluated with xray and nofx found. Labs reported to me as stable. Patient and felt she was too weak/at risk for fallsto go home. She waited in ED as boarder there for 29 hours, reached out to [facility] which had a bed to accept. I took brief call from ER provider there. He stated she looked ok but had no place to go. I explained this sounded like an admission for likely TCU/rehab placement in absence of acute medical problem and he agreed. I asked them to ensure family wanted transfer and they did. I met with the patient using Telemedicine cart and assist of YENNIFER Chavez. Patient seen immediately after her arrival. No med records available to me in computer. RN helped read med list from [facility] documents. Patient verified her home meds. She was on O2 as she was given Morphine during transport and this dropped her sats. No lung dz or prior need. Wants to be Full Code. I explained the Opiate sparingstrategy I was going to employ with very minimal Oxy as breakthrough. Later she asked me why she wasn't going to get any pain meds...... Hospital Course: L knee pain- TKA on 07/15 with two falls since that time. NO fx or acute trauma to knee. Sched Tylenol/Hydroxyzine/lidocaine patch. Min dose Oxy breakthrough. PT and OT. Falls at home- 2 falls, possibly Opiate related. She also had respiratory depression from Morphine upon arrival at [facility]. Will try to minimize use. PT OT. Hx of Depression- continue MICRO PHOTOGRAPHER Wellbutrin, Seroquel, venlafaxine CKDIII- Avoid Nephrotoxins. Hx of PE in April- Taking Xarelto. Continue. HTN - BP consistently elevated > 140 mmHg here. Start amlodipine 5 mg daily. Physical Exam: BP (!) 167/84 (BP Cuff Size: Regular) Pulse 79 Temp 98.1 ??F (36.7 ??C) (Oral) Resp 20 Ht 5'6 (1.676 m) Wt 80.6 kg (177 lb 9.6 oz) SpO2 92% BMI 28.67 kg/m?? General: Well-developed, well-nourished, no acute distress CV: S1, S2, Regular rate without murmur, rub, or gallop Respiratory: The lungs are clear to auscultation bilaterally with easy respiratory effort Abdomen: Soft, non-tender, non-distended with normal bowel sounds Extremities: No edema Code Status: FULL CODE Discharge Medications: Medication List START taking these medications amLODIPine 5 MG tablet Commonly known as: NORVASC Take 1 Tablet (5 mg) by mouth daily. Indications: High Blood Pressure Disorder Do not start before August 10, 2022. Start taking on: August 10, 2022 hydrOXYzine pamoate 25 MG capsule Commonly known as: VISTARIL Take 1 Capsule (25 mg) by mouth every 6 hours as needed for Pain. lidocaine 4 % patch Commonly known as: ASPERCREAM Apply 1 Patch to skin daily for 14 days. Cut in half and apply both halves to left knee. Leave on for up to 12 hours in a 24 hour period, then remove. Do not start before August 10, 2022. Start taking on: August 10, 2022 polyethylene glycol 17 g packet Commonly known as: MIRALAX Take 1 Packet (17 g) by mouth daily. Indications: Constipation secondary to oxycodone senna 8.6 MG tablet Commonly known as: SENOKOT Take 2 Tablets by mouth two times daily as needed for Constipation. CHANGE how you take these medications acetaminophen 500 MG tablet Commonly known as: TYLENOL Take 2 Tablets (1,000 mg) by mouth three times a day for 14 days. Maximum acetaminophen dose is 4000mg in 24 hours What changed: when to take this reasons to take this oxyCODONE 5 MG immediate release tablet Commonly known as: ROXICODONE Take 0.5 Tablets (2.5 mg) by mouth every 6 hours as needed for Pain. Max daily dose of 6 tablets What changed: how much to take when to take this CONTINUE taking these medications buPROPion 300 MG 24 hour release tablet Commonly known as: WELLBUTRIN XL Take 300 mg by mouth daily. * QUEtiapine 100 MG tablet Commonly known as: SEROquel Take 100 mg by mouth daily at bedtime. * QUEtiapine 25 MG tablet Commonly known as: SEROquel Take 25 mg by mouth daily at bedtime. rivaroxaban 20 MG tablet Commonly known as: XARELTO Take 20 mg by mouth every evening with a meal. SUMAtriptan 100 MG tablet Commonly known as: IMITREX Take 100 mg by mouth as needed for Migraine. at onset of headache; may repeat one time in 2 hours ifheadache recurs. * venlafaxine 75 MG 24 hour release capsule Commonly known as: EFFEXORXR Take 75 mg by mouth daily. * venlafaxine 37.5 MG 24 hour release capsule Commonly known as: EFFEXORXR Take 37.5 mg by mouth daily. * This list has 4 medication(s) that are the same as other medications prescribed for you. Read thedirections carefully, and ask your doctor or other care provider to review them with you. Important Diagnostic Studies: Labs: Recent Labs 08/08/22 1626 WBC 6.5 HGB 13.3 PLTS 391 Recent Labs 08/08/22 1626 SODIUM 138 K 3.9 CREATININE 1.26* CA 9.2 Imaging: None Consultations: None Brief History of Present Illness: Please see admission H&P for details. Discharge Orders: Discharge Orders (Non-med) Resume Activities as Tolerated May Use Generic Medication Equivalents. May Have a Therapeutic Leave with Medication. May Crush Meds or Use Liquids as Indicated. Admit to Skilled Care Comments: Admit to [facility]. Rehab Potential: Good Potential for D/C From [place] in 30 Days? Yes Code Status: Full Regular Diet Comments: Physical Therapy Comments: Reason for appointment: Principal Problem: Left knee pain Active Problems: Falls frequently Recurrent major depressive disorder, in full remission (HRC) Hx of pulmonary embolus Chronic kidney disease, stage 3 unspecified (HRC) References: Denice Haynes Consult Page Glucose Testing Policy for Denice Haynes Question Answer Comment Appointment Urgency? Non-Urgent Requested Services Evaluate and treat May use saline for irrigation or cleansing Yes Reason for Visit / Clinical Data? s/p LTKA May use dexamethasone, saline, or acetic acid for iontophoresis? Yes May check glucose per protocol (see policy link below) or if patient has symptoms? Yes Occupational Therapy Comments: Reason for appointment: Principal Problem: Left knee pain Active Problems: Falls frequently Recurrent major depressive disorder, in full remission (HRC) Hx of pulmonary embolus Chronic kidney disease, stage 3 unspecified (HRC) References: Denice Haynes Consult Page Glucose Testing Policy Question Answer Comment Appointment Urgency? Non-Urgent Reason for Visit / Clinical Data? s/p LTKA Requested Services Evaluate and treat May use saline for irrigation or cleansing Yes May use dexamethasone, saline, or acetic acid for iontophoresis? Yes May check glucose per protocol (see policy link below) or if patient has symptoms? Yes No Pending Labs Primary Care Follow-Up Comments: Primary Care Provider: Tracee Batres Within 1 month References: Specialty Connection Denice Ivy Consult Page Question Answer Comment What type of follow up? IP Discharge Appointment Urgency? Non-Urgent Reason for visit? f/u HTN Total time of discharge: 30 min. I evaluated the patient on the day of discharge, discussed this information with the patient, and answered all questions. The patient was discharged in stable condition. Kaelyn Geller MD CC: Tracee Jose Manuel Medardo documented in this encounter Discharge Instructions Discharge InstructionsJanice Tucker HUC - 08/07/2022 10:45 AM CDT Special Instructions: Discharge Instr - SafetyJanice Tucker HUC - 08/07/2022 10:44 AM CDT Call your clinic or seek medical help if you have any sudden change in your condition or if you haveany of the following: {IP D/C DANGER SIGNS:[id number]} AttachmentsThe following attachments cannot be sent through Care Everywhere.Knee Pain or Injury (Bangladeshi)documented in this encounter Medications at Time of Discharge Medication Sig Dispensed Refills Start Date End Date amLODIPine (NORVASC) 5 Take 1 Tablet (5 mg) 30 Tablet 0 02/2022 MG tabletIndications: by mouth daily. Hypertension Indications: High Blood Pressure Disorder Do not start before August 10, 2022. buPROPion (WELLBUTRIN Take 300 mg by mouth 0 XL) 300 MG 24 hour daily. release tabletIndications: Major Depressive Disorder hydrOXYzine pamoate Take 1 Capsule (25 mg) 20 Capsule 0 01/2022 (VISTARIL) 25 MG by mouth every 6 hours capsule as needed for Pain. oxyCODONE (ROXICODONE) Take 0.5 Tablets (2.5 10 Tablet 0 5 MG immediate release mg) by mouth every 6 tablet hours as needed for Pain. Max daily dose of 6 tablets polyethylene glycol Take 1 Packet (17 g) 14 Each 0 2021 (MIRALAX) 17 g by mouth daily. packetIndications: Indications: Constipation secondary Constipation secondary to oxycodone to oxycodone QUEtiapine (SEROQUEL) Take 100 mg by mouth 0 100 MG daily at bedtime. tabletIndications: Major Depressive Disorder QUEtiapine (SEROQUEL) Take 25 mg by mouth 0 25 MG daily at bedtime. tabletIndications: Major Depressive Disorder rivaroxaban (XARELTO) Take 20 mg by mouth 0 20 MG every evening with a tabletIndications: meal. Pulmonary Embolism senna (SENOKOT) 8.6 MG Take 2 Tablets by 20 Tablet 0 2021 tablet mouth two times daily as needed for Constipation. SUMAtriptan (IMITREX) Take 100 mg by mouth 0 100 MG tablet as needed for Migraine. at onset of headache; may repeat one time in 2 hours if headache recurs. venlafaxine Take 37.5 mg by mouth 0 (EFFEXORXR) 37.5 MG 24 daily. hour release capsuleIndications: Major Depressive Disorder venlafaxine Take 75 mg by mouth 0 (EFFEXORXR) 75 MG 24 daily. hour release capsuleIndications: Major Depressive Disorder acetaminophen Take 2 Tablets (1,000 84 Tablet 0 08/09/2022 08/23/2022 (TYLENOL) 500 MG mg) by mouth three tablet times a day for 14 days. Maximum acetaminophen dose is 4000 mg in 24 hours lidocaine (ASPERCREAM) Apply 1 Patch to skin 14 Patch 0 08/24/2022 4 % patch daily for 14 days. Cut in half and apply both halves to left knee. Leave on for up to 12 hours in a 24 hour period, then remove. Do not start before August 10, 2022. documented as of this encounter Progress Notes Johanna Newton RN - 08/09/2022 10:19 AM CDT [facility] Discharge Note - Nursing Admission Date/Time: 08/03/2022 9:50 PM Attending MD: Kaelyn Geller MD Patient discharged: to Home. Discharge Date: 08/09/2022 Discharge Time: 10:19 AM Patient accompanied by: spouse and relative. Transported by: Wheelchair Valuables were taken home by patient: Yes Discharge instructions given and explained to patient: Yes Discharge Patient Education Plan completed, taught, and provided to patient/caregiver at discharge: No,orders sent to [facility] Discussed medication risks with patient Patient understands medications usage and side effects Patient understands diagnosis Action Plan for management of symptoms/side effects/complications requiring medical attention established and shared with patient/caregiver Patients general condition on discharge: stable All medical devices (telemetry/IV/etc) unless otherwise ordered, have been removed and stored: Yes --- End of Report --- Sandhya Sommer PTA - 08/09/2022 10:05 AM CDT [facility] Physical Therapy Discharge Summary Patient: Melanie Frederick Date: 08/09/2022 Date of : 1945 Assessment: Patient progressing slowly. Met only 1/4 goals during hospital stay. Reason for Discharge: Patient transferred to [facility] for continued rehab. Discharge Plan: Continued rehab at [facility]. Goals: Bed Mobility Patient will transfer to/from supine with: independent Functional Outcome: in order to be safe in their living environment Goal to be met by: 08/09/22 Status: goal met Transfers Patient will transfer: bed to/from chair with Level of Assist: Modified independent Functional Outcome: in order to be safe in their living environment Goal to be met by: 08/09/22 Status: goal progressing (mobility and safety varies per session. More shaky and decreased balance this afternoon) Ambulation Patient will ambulate: 150 feet using, wheeled walker Level of Assist: Modified independent Functional Outcome: in order to be safe in their living environment Goal to be met by: 08/09/22 Status: goal progressing (25 feet x 1, with fww) Stairs Patient will negotiate: 2 steps with, 1 rail Level of Assist: Max assist (50-75% of task), Mod assist (25-50% of task) Functional Outcome: in order to be safe in their living environment Goal to be met by: 08/09/22 Status: goal not addressed this session Sandhya Sommer, MICRO PHOTOGRAPHER 08/09/2022, 12:06 PM AND RISK ANALYSIS MANAGER Associated attestation - Geoff Newton, PT - 08/13/2022 8:33 AM COST AND RISK ANALYSIS MANAGER Patient status, goals, and plan reviewed, and I am in agreement with the plan of care. Geoff Newton, PT 08/13/2022, 8:32 AM Ping Nesbitt, RN - 08/09/2022 8:35 AM CDT [facility] Discharge Information From Nursing To [facility] Date: 08/09/2022 Patient: Melanie Frederick Diagnosis: No diagnosis found. Self Care Function Primary Language: Bangladeshi Physical Impairment(s): VISION: wears glasses . WEAKNESS: generalized, very deconditioned. Mental Status:alert, aware of day of week, aware of person, aware of place, and aware of situation Behavior: oriented Communication: can write, talks, understands speaking, understands Bangladeshi, and reads Self Care Status: needs assist with ADL's, ambulation and transfers. Bladder Care: Able to control bladder. Bowel Care: Able to control bowels Unable to control bowels Date & time of last stool 08/08/22 Nursing-Focused Problems/Needs Pain Control: Oxycodone, Tylenol, and Other lidocaine patch Cardiac: Regular rate and rhythm Respiratory: No apparent abnormalities Integumentary: Ecchymosis located: scattered areas of body left knee incisional site open to air Incision: intact and dry Sleep Pattern: sleep interrupted through the night Nutrition/Diet Concerns: Regular Additional Information Covid negative on admission to hospital , left TKA on 07/15/[address] [facility] [place], falling at home. Nursing department/unit phone number: [facility] [phone] 08/09/2022, 8:35 AM Belia Cottrell RN - 08/09/2022 12:44 AM CDT BP (!) 141/77 Pulse 91 Temp 98.5 ??F (36.9 ??C) (Oral) Resp 18 Ht 5' 6 (1.676 m) Wt 80.6 kg (177 lb 9.6 oz) SpO2 92% BMI 28.67 kg/m?? Patient ambulated to bathroom with assistance, walker and gait belt. Night medications given. Reports pain level of 2/10. Patient in bed without complaints. Linens changed, pad changed and cloth undies changed. Pain meds given, see mar. Patient resting quietly in bed. Johanna Newton RN - 08/08/2022 4:10 PM CDT Patient up to BR from bed with gait belt, walker and 1 assist. After getting up from toilet to wash hands, patient got very shaky, weak, denied lightheadedness or dizziness, would have fallen backwardsif she had not had an assistive person with her. Patient got to chair safely. BP after getting back to chair was 149/94 pulse 84. Continue to monitor and care for this patient. .Johanna Newton RN 08/08/2022, 4:15 PM Kaelyn Geller MD - 08/08/2022 12:24 PM CDT [facility] Medicine Progress Note Patient Name: Melanie Frederick Date of Admission: 08/03/2022 Date of Service: 08/08/2022 Subjective: Feeling okay. Still limited by endurance. Participates well with therapies. BP remains elevated. Objective: Most Recent Vital Signs: Min and Max Vital Signs (24 hours): Temp: 97.6 ??F (36.4 ??C) BP: (!) 164/97 Pulse: 82 Resp: 20 SpO2: 94 % Temp Min: 97.6 ??F (36.4 ??C) Max: 98.2 ??F (36.8 ??C) BP Min: 137/87 Max: 165/93 Pulse Min: 6 Max: 86 Resp Min: 18 Max: 20 SpO2 Min: 93 % Max: 94 % Weight: 80.6 kg (177 lb 9.6 oz) Physical Exam Vitals and nursing note reviewed. Constitutional: Appearance: Normal appearance. Cardiovascular: Rate and Rhythm: Normal rate and regular rhythm. Pulmonary: Effort: Pulmonary effort is normal. Breath sounds: Normal breath sounds. Musculoskeletal: Right lower leg: No edema. Left lower leg: No edema. Neurological: Mental Status: She is alert. Results: Labs (Last 24 hours): No results for input(s): WBC, HGB, HCT, PLTS, INR, SODIUM, K, CO2, BUN, CREATININE, ANIONGAP in the last 24 hours. Imaging/Procedures: None performed. Assessment & Plan: 77 y.o. female with PMH of L TKA for OA on 07/15, Depression, CDKII, Hx of PE on Xarelto and insomnia who presented to [facility] after a second fall at home post operative for L TKA on 07/15.Transferred to [facility] for bed availability. Current Problems: L knee pain- TKA on 07/15 with two falls since that time. NO fx or acute trauma to knee. Sched Tylenol/Hydroxyzine/lidocaine patch. Min dose Oxy breakthrough. PT and OT. Falls at home- 2 falls, possibly Opiate related. She also had respiratory depression from Morphine upon arrival at [facility]. Will try to minimize use. PT OT. Hx of Depression- continue MICRO PHOTOGRAPHER Wellbutrin, Seroquel, venlafaxine CKDIII- Avoid Nephrotoxins. Hx of PE in April- Taking Xarelto. Continue. HTN - BP consistently elevated > 140 mmHg here. Start amlodipine 5 mg daily. Dispo- Full Code. DOAC for DVT proph. Dispo: [place] tomorrow Kaelyn Geller MD 08/08/2022 - 12:24 PM Belia Cottrell RN - 08/07/2022 10:07 PM CDT BP 137/87 Pulse (!) 6 Temp 98.1 ??F (36.7 ??C) (Oral) Resp 18 Ht 5' 6 (1.676 m) Wt 80.6 kg (177 lb 9.6 oz) SpO2 93% BMI 28.67 kg/m?? Patient AAOx4. States pain is very minimal at a 2. Asking about her Seroquel for bed, acknowledged that she will get it at bedtime. Patient was assisted to the bathroom by another nurse for bedtime hygiene care and use of the bathroom. Denies any needs during this time. Patient has over active bladder, changed linen and ambulated to bathroom. Bp slightly elevated with activity. No complaints noted. Kaelyn Geller MD - 08/07/2022 3:20 PM CDT [facility] Medicine Progress Note Patient Name: Melanie Frederick Date of Admission: 08/03/2022 Date of Service: 08/07/2022 Subjective: Participating well with therapies and very motivated, but struggling with limited endurance. Improved pain control with addition of lidocaine patch this morning. Objective: Most Recent Vital Signs: Min and Max Vital Signs (24 hours): Temp: 97.1 ??F (36.2 ??C) BP: (!) 151/101 Pulse: 78 Resp: 18 SpO2: 93 % Temp Min: 97.1 ??F (36.2 ??C) Max: 98.5 ??F (36.9 ??C) BP Min: 130/74 Max: 153/85 Pulse Min: 78 Max: 90 Resp Min: 18 Max: 20 SpO2 Min: 93 % Max: 94 % Weight: 80.6 kg (177 lb 9.6 oz) Physical Exam Vitals and nursing note reviewed. Constitutional: Appearance: Normal appearance. Cardiovascular: Rate and Rhythm: Normal rate and regular rhythm. Pulmonary: Effort: Pulmonary effort is normal. Breath sounds: Normal breath sounds. Neurological: Mental Status: She is alert. Results: Labs (Last 24 hours): No results for input(s): WBC, HGB, HCT, PLTS, INR, SODIUM, K, CO2, BUN, CREATININE, ANIONGAP in the last 24 hours. Imaging/Procedures: None performed. Assessment & Plan: 77 y.o. female with PMH of L TKA for OA on 07/15, Depression, CDKII, Hx of PE on Xarelto and insomnia who presented to [facility] after a second fall at home post operative for L TKA on 07/15.Transferred to [facility] for bed availability. Current Problems: 1- L knee pain- TKA on 07/15 with two falls since that time. NO fx or acute trauma to knee. Sched Tylenol/Hydroxyzine/lidocaine patch. Min dose Oxy breakthrough. PT and OT. Continue to pursue TCU placement while working on therapies here. 2- Falls at home- 2 falls, possibly Opiate related. She also had respiratory depression from Morphine upon arrival at [facility]. I suspect not the best class of meds going forward for patient. PT OT. 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 5- Hx of PE in April- Taking Xarelto. Continue. 6- Dispo- Full Code. DOAC for DVT proph. Dispo: TCU hopefully nearer to [place], [place]. Kaelyn Geller MD 08/07/2022 - 3:20 PM Ping Oneill RN - 08/07/2022 3:31 AM CDT Patient is alert and oriented and reports that she had a good day. She had worked with therapy x 2. She continues to have pain of her left knee. Scheduled Tylenol 1000 mg was administered at 2038 for pain she rated at a 2. She had increased pain at second assessment of 7 and Oxycodone 2.5 mg and Hydroxyzine 25 mg were administered at 202.Patient did received relief and was sleeping at pain recheck. Her knee does have slight swelling of +2 and +1-2 at her ankle and foot. The knee is hot to the touch and almost appears a slight pink color. She has no fever and nausea of earlier today is gone.Shehas had ice on her knee intermittently throughout the shift. She reports that she may be constipatedand that she did have a BM today 08-06-22. Senna 1 tab given PO to promote BM. Patient encouraged to work with IS, increase activity/ambulation and fluid intake. Patient at 0500 rated pain a 7 and reported that her pain was increasing. She requested more Oxycodone To take the other half. Patient inf ormed that she could not have any additional pain medication until breakfast due to time constraints. Patient accepted answer. Call light within reach, hourly rounding completed. Ping Oneill RN 08/07/2022, 3:45 AM Kaelyn Geller MD - 08/06/2022 12:40 PM CDT [facility] Medicine Progress Note Patient Name: Melanie Frederick Date of Admission: 08/03/2022 Date of Service: 08/06/2022 Subjective: Had nausea this AM with emesis. Nausea resolved with Zofran and large BM. Making progress with therapies, but not sufficiently to discharge home at this point. Objective: Most Recent Vital Signs: Min and Max Vital Signs (24 hours): Temp: 98.5 ??F (36.9 ??C) BP: 137/88 Pulse: 97 Resp: 22 SpO2: 96 % Temp Min: 97.2 ??F (36.2 ??C) Max: 98.5 ??F (36.9 ??C) BP Min: 137/88 Max: 155/86 Pulse Min: 80 Max: 97 Resp Min: 16 Max: 22 SpO2 Min: 94 % Max: 96 % Weight: 80.6 kg (177 lb 9.6 oz) Physical Exam Vitals and nursing note reviewed. Constitutional: Appearance: Normal appearance. Cardiovascular: Rate and Rhythm: Normal rate and regular rhythm. Pulmonary: Effort: Pulmonary effort is normal. Breath sounds: Normal breath sounds. Musculoskeletal: Comments: Mild swelling left knee, incision C/D/I. Skin: General: Skin is warm and dry. Capillary Refill: Capillary refill takes less than 2 seconds. Neurological: Mental Status: She is alert. Results: Labs (Last 24 hours): No results for input(s): WBC, HGB, HCT, PLTS, INR, SODIUM, K, CO2, BUN, CREATININE, ANIONGAP in the last 24 hours. Imaging/Procedures: None performed. Assessment & Plan: 77 y.o. female with PMH of L TKA for OA on 07/15, Depression, CDKII, Hx of PE on Xarelto and insomnia who presented to [facility] after a second fall at home post operative for L TKA on 07/15.Transferred to [facility] for bed availability. Current Problems: 1- L knee pain- TKA on 07/15 with two falls since that time. NO fx or acute trauma to knee. Sched Tylenol/Hydroxyzine. Min dose Oxy breakthrough. Hold on NSAIDs until confirmation of her labs (reportedas normal) from [place] given her hx of CKDIII. Tramadol second line. PT and OT. Continue to pursue TCU placement while working on therapies here. 2- Falls at home- 2 falls, possibly Opiate related. She also had respiratory depression from Morphine upon arrival at [facility]. I suspect not the best class of meds going forward for patient. PT OT. 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 5- Hx of PE in April- Taking Xarelto. Continue. 6- Dispo- Full Code. DOAC for DVT proph. Dispo: TCU hopefully nearer to [place], [place]. Kaelyn Geller MD 08/06/2022 - 12:40 PM Aura Fan RN - 08/06/2022 12:17 PM CDT [facility] Plan of Care Note Assessment: Patient is a pleasant 77 y.o.admitted on 08/03/2022 after a fall. She had left knee surgery at [facility] on 07/15/22. Has had home health visiting her a few times but feels she needs more therapy. Patient had two falls at home after surgery. Her left knee incision is well approximated and exposed to air. There is some bruising above the left knee and trace swelling. Patient likes to keep ice on it. Plan: Monitor Nausea and Vomiting. Last BM today 08/06/22, New medication added, continue to monitorBM schedule. Plans to transfer somewhere closer to home ([place]) TCU for further physical therapy. Subjective: [Feeling] better and my balance is a little bit better Objective: Vitals: 08/06/22 0250 08/06/22 0429 08/06/22 0907 BP: (!) 141/86 137/88 Pulse: 80 97 Resp: 16 22 Temp: 98.5 ??F (36.9 ??C) SpO2: 94% 96% Weight: 80.6 kg (177 lb 9.6 oz) GI; Patient complains of constipation. Last bowel movement today. Bowel sounds active in all quadrants. Non tender. Non distended. Lung sounds Clear in all schroeder. CMS checks completed in lower extremities. Pulses felt. Patient has feeling in both of her legs and feet. Non-tender right knee. Some tenderness in left knee. Cardiac: WDL. Patient ambulating A1, Gait belt and walker equipment used. Had N/V x1 this morning. Medication resolved symptoms. Tolerating lunch adequately. Sierra Lau SN 1250 --- End of Report --- Chester La DO - 08/05/2022 9:44 PM CDT [facility] Medicine Progress Note Patient Name: Melanie Frederick Date of Admission: 08/03/2022 Date of Service: 08/05/2022 Subjective: 77 yo female seen in observation. She reports minimal pain in her L TKA at rest. Was able to ambulate to bathroom with assistance. Had 2 falls at home and has balance impairment. Requires TCU placement. Objective: Most Recent Vital Signs: Min and Max Vital Signs (24 hours): Temp: 97.2 ??F (36.2 ??C) BP: (!) 139/92 Pulse: 93 Resp: 16 SpO2: 95 % Temp Min: 97.2 ??F (36.2 ??C) Max: 98.5 ??F (36.9 ??C) BP Min: 120/79 Max: 155/86 Pulse Min: 76 Max: 93 Resp Min: 16 Max: 18 SpO2 Min: 92 % Max: 96 % Weight: 81.8 kg (180 lb 6.4 oz) Physical Exam General: Alert and Oriented x 3. No acute distress. Non toxic. Appears comfortable. Head: NCAT Neck: Supple without lymphadenopathy. Trachea midline. Heart: Regular in rate and rhythm without murmur rub or gallop. Lungs: Clear to auscultation bilaterally without wheezes rales or rhonchi Abdomen: Soft, non tender, non distended. No masses. Negative Hubbard's sign. Normal bowel sounds. Norebound or guarding. Vascular: Radial and dorsalis pedis pulses are 2/4 bilateral and equal. Musculoskeletal: No lower extremity edema. Skin: No rashes, erythema, or jaundice. Incision is CDI Psychiatric: No hallucinations or delusions. Affect is appropriate. Neurologic: Speech is clear extremities are mobile x 4 without focal deficit. Results: Labs (Last 24 hours): No results for input(s): WBC, HGB, HCT, PLTS, INR, SODIUM, K, CO2, BUN, CREATININE, ANIONGAP in the last 24 hours. Imaging/Procedures: None performed. Assessment & Plan: 77 y.o. female with PMH of L TKA for OA on 07/15, Depression, CDKII, Hx of PE on Xarelto and insomnia who presented to [facility] after a second fall at home post operative for L TKA on 07/15.Transferred to [facility] for bed availability. Current Problems: 1- L knee pain- TKA on 07/15 with two falls since that time. NO fx or acute trauma to knee. Sched Tylenol/Hydroxyzine. Min dose Oxy breakthrough. Hold on NSAIDs until confirmation of her labs (reportedas normal) from [place] given her hx of CKDIII. Tramadol second line. PT and IT. May need TCU placement 2- Falls at home- 2 falls, possibly Opiate related. She also had respiratory depression from Morphine upon arrival at [facility]. I suspect not the best class of meds going forward for patient. PT OT. 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 Avoid Nephrotoxins. 5- Hx of PE in April- Taking Xarelto. Continue. 6- Dispo- Full Code. DOAC for DVT proph. Dispo: TCU hopefull nearer to [place], [place]. Chester La DO 08/05/2022 - 9:45 PM Chester La DO - 08/04/2022 4:10 PM CDT [facility] Medicine Progress Note Patient Name: Melanie Frederick Date of Admission: 08/03/2022 Date of Service: 08/04/2022 Subjective: 77 yo female seen in observation. She reports minimal pain in her L TKA at reset. Was able to ambulate to bathroom with assistance. Had 2 falls at home and has balance impairment. Requires TCU placement. Objective: Most Recent Vital Signs: Min and Max Vital Signs (24 hours): Temp: 98.4 ??F (36.9 ??C) BP: 136/71 Pulse: (!) 106 Resp: 18 SpO2: 94 % Temp Min: 98 ??F (36.7 ??C) Max: 98.4 ??F (36.9 ??C) BP Min: 136/71 Max: 155/86 Pulse Min: 85 Max: 106 Resp Min: 18 Max: 18 SpO2 Min: 91 % Max: 94 % Weight: 81.8 kg (180 lb 6.4 oz) Physical Exam General: Alert and Oriented x 3. No acute distress. Non toxic. Appears comfortable. Head: NCAT Neck: Supple without lymphadenopathy. Trachea midline. Heart: Regular in rate and rhythm without murmur rub or gallop. Lungs: Clear to auscultation bilaterally without wheezes rales or rhonchi Abdomen: Soft, non tender, non distended. No masses. Negative Hubbard's sign. Normal bowel sounds. Norebound or guarding. Vascular: Radial and dorsalis pedis pulses are 2/4 bilateral and equal. Musculoskeletal: No lower extremity edema. Skin: No rashes, erythema, or jaundice. Incision is CDI Psychiatric: No hallucinations or delusions. Affect is appropriate. Neurologic: Speech is clear extremities are mobile x 4 without focal deficit. Results: Labs (Last 24 hours): No results for input(s): WBC, HGB, HCT, PLTS, INR, SODIUM, K, CO2, BUN, CREATININE, ANIONGAP in the last 24 hours. Imaging/Procedures: None performed. Assessment & Plan: 77 y.o. female with PMH of L TKA for OA on 07/15, Depression, CDKII, Hx of PE on Xarelto and insomnia who presented to [facility] after a second fall at home post operative for L TKA on 07/15.Transferred to [facility] for bed availability. Current Problems: 1- L knee pain- TKA on 07/15 with two falls since that time. NO fx or acute trauma to knee. Sched Tylenol/Hydroxyzine. Min dose Oxy breakthrough. Hold on NSAIDs until confirmation of her labs (reportedas normal) from [place] given her hx of CKDIII. Tramadol second line. PT to see in AM. May need TCU placement 2- Falls at home- 2 falls, possibly Opiate related. She also had respiratory depression from Morphine upon arrival at [facility]. I suspect not the best class of meds going forward for patient. PT to see Andreia. Given her reluctance to walk on knee, likely to need TCU consideration. 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 Avoid Nephrotoxins. 5- Hx of PE in April- Taking Xarelto. Took her dose this AM. Continue. 6- Dispo- Full Code. DOAC for DVT proph. Dispo: PT/TCU likely Chester La DO 08/04/2022 - 4:10 PM Mik Arredondo, PharmD - 08/04/2022 9:42 AM CDT [facility] Pharmacy Medication Reconciliation Note Outpatient Medication History: Outpatient Medications Marked as Taking for the 08/03/22 encounter (Hospital Encounter) Medication Sig ordered acetaminophen (TYLENOL) 500 MG tablet Take 1,000 mg by mouth every 4 hours as needed for Pain. Maximum acetaminophen dose is 4000 mg in 24 hours ordered buPROPion (WELLBUTRIN XL) 300 MG 24 hour release tablet Take 300 mg by mouth daily. ordered oxyCODONE (ROXICODONE) 5 MG immediate release tablet Take 2.5-5 mg by mouth every 4 hours as needed for Pain. Max daily dose of 6 tablets ordered QUEtiapine (SEROQUEL) 100 MG tablet Take 100 mg by mouth daily at bedtime. ordered QUEtiapine (SEROQUEL) 25 MG tablet Take 25 mg by mouth daily at bedtime. ordered rivaroxaban (XARELTO) 20 MG tablet Take 20 mg by mouth every evening with a meal. x SUMAtriptan (IMITREX) 100 MG tablet Take 100 mg by mouth as needed for Migraine. at onset of headache; may repeat one time in 2 hours if headache recurs. ordered venlafaxine (EFFEXORXR) 37.5 MG 24 hour release capsule Take 37.5 mg by mouth daily. ordered venlafaxine (EFFEXORXR) 75 MG 24 hour release capsule Take 75 mg by mouth daily. Source for Medication History: Fill hx search and patient interview Primary Pharmacy is: [facility] in [place], [place] Non-Formulary Medications: None Compliance: Fill hx likely shows compliance This document completed by: Mik Arredondo PharmD 08/04/2022, 9:44 AM Becka Fuentes RN - 08/04/2022 2:33 AM CDT Patient here for left knee pain, post replacement on 07/15/2022 after falling at home x 2. She is A & O, anxious and pleasant. Patient is very reluctant to put weight on her left foot. Staff of [facility] two assist, gait belt and walker got patient to stand next to bed and pivot to [facility]. Staff literally moved the patient as she would not participate. She was terrified to stand or even move her left leg. Would not put weight on her left foot. While on the [facility] patient brushed her teeth. Patient was incontinent of a large amount of urine and voided maybe 50 mL in the bucket. Handy care performed by [employer]IC[employer]. Patient stated she has an inter stem implantable device to assist with her OAB and it does not work. Last BM was 08/01/2022 per patient. She would like help with bowel management. Heart rate regular. Lungs clear and on room air. She did not want any food. Stated she had supper at the other hospital. Large scar on left knee with a previous scar there also. Her skin is fragile appearing. Toes are disfigured. She said she has severe insomnia and was in a hurry to receive her quetiapine. She also received Tylenol 1000 mg po and hydroxyzine 25 mg po for left knee pain around 2309. Offered her melatonin and she received that also. She has been sleeping hard since around 0000. She stated she has neck issues and brought one of her own pillows. HOB elevated. Pillow under left knee and an ice pack applied to the top of her left knee. Patient stated she does have an advance directive at her home clinic. Lights off per patient request. Call light and water within reach. Rounding in place hourly and prn. Will continue to monitor and care for this patient. Becka Fuentes RN 08/04/2022, 3:03 AM documented in this encounter OR Notes H&P - Meet Jimenez MD - 08/03/2022 10:31 PM CDT HOSPITALIST HISTORY AND PHYSICAL [facility] Patient name: Melanie Frederick : 1945 DOA: 08/03/2022 9:50 PM DOS: 08/03/2022 2215 Attending: Meet Jimenez MD - Internal Medicine/Pediatrics [facility] Hospitalist [phone] Chief complaint: L knee pain History of present illness: 77 y.o. female with PMH of L TKA for OA on 07/15, Depression, CDKII, Hx of PE on Xarelto and insomnia who presented to [facility] after a second fall at home post operative for L TKA on 07/15.She had gone home and fallen, returned for evaluation and sent home again. Fell again. Both times she feels that her Oxycodone meds made her dizzy and fall. In ED [place], evaluated with xray and nofx found. Labs reported to me as stable. Patient and felt she was too weak/at risk for fallsto go home. She waited in ED as boarder there for 29 hours, reached out to [facility] which had a bed to accept. I took brief call from ER provider there. He stated she looked ok but had no place to go. I explained this sounded like an admission for likely TCU/rehab placement in absence of acute medical problem and he agreed. I asked them to ensure family wanted transfer and they did. I met with the patient using Telemedicine cart and assist of YENNIFER Chavez. Patient seen immediately after her arrival. No med records available to me in computer. RN helped read med list from [place] documents. Patient verified her home meds. She was on O2 as she was given Morphine during transport and this dropped her sats. No lung dz or prior need. Wants to be Full Code. I explained the Opiate sparingstrategy I was going to employ with very minimal Oxy as breakthrough. Later she asked me why she wasn't going to get any pain meds...... ROS: Full ROS reviewed and is negative except as described above. Past Medical History: Depression OA L TKA 07/15 CKDIII Hx of PE 04/26 Family History: No relevance Social history: Lives with . Non smoker, no EtOH. 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 Medications: Home meds reviewed Allergy: Not on file Physical Exam: Vitals: Patient Vitals for the past 8 hrs: BP Pulse Resp SpO2 08/03/22 2157 (!) 155/86 85 18 94 % General: AAOx3, no apparent distress, easy respiratory effort. Likely a little Opiate affect of her Mental status. HEENT: EOMI to finger test, OP appears normal, nl tongue Neck: palpated by RN with no LAD or tenderness Lungs: Appropriate airflow in all quadrants. No discernible crackles or asymmetry in respiratory sounds CVS: RRR, S1 S2 present, No M/R/G Abd: No apparent distension. Soft, non tender to palpation four quadrants by RN Neurological: No apparent cranial nerve abnormalities with fluent speech and appropriate cognition. Extremities: Her L knee has normal appearing anterior incision. No signif erythema. ROM to 90 degrees. Did not try to walk patient. Skin-patient has no ecchymosis, rash or abnormal lesions MSK-No joint swelling, nl ROM Lymphatic-no palpable nodes Imaging: Reviewed by myself to include- Xrays from [place] of L knee reported to me as normal. ASSESSMENT/PLAN 77 y.o. female with PMH of L TKA for OA on 07/15, Depression, CDKII, Hx of PE on Xarelto and insomnia who presented to [facility] after a second fall at home post operative for L TKA on 07/15.Transferred to [facility] for bed availability. Current Problems: 1- L knee pain- TKA on 07/15 with two Opiate induced falls since that time. NO fx or acute trauma toknee. Sched Tylenol/Hydroxyzine. Min dose Oxy breakthrough. Hold on NSAIDs until confirmation of herlabs (reported as normal) from [place] given her hx of CKDIII. Tramadol second line. PT to see Andreia. I am not ordering any further imaging at this time. 2- Falls at home- 2 falls, seem directly Opiate related. She also had respiratory depression from Morphine upon arrival at [facility]. I suspect not the best class of meds going forward for patient. PT to see in AM. Given her reluctance to walk on knee, likely to need TCU consideration. 3- Hx of Depression- Verified her doses with her. 4- CKDIII- Am provider to review documents and consider repeating BMP if necessary (reported as normal to me). Avoid Nephrotoxins. 5- Hx of PE in April- Taking Xarelto. Took her dose this AM. Continue. 6- Dispo- Full Code. DOAC for DVT proph. PT/TCU likely I have discussed my impression, plan and rationale with patient/family and answered all questions tosatisfaction. Meet Jimenez MD Internal Medicine/Pediatrics 10:31 PM 08/03/2022 [facility] Hospitalist/[facility] Hospitalist [phone] Total time was > 70 min with >50% for counseling and coordination of care (discussion with bedside nursing, patient counseling, discussion with care management, review of pertinent labs or studies, and medical records). Billing appropriate for GT modifier as telemedicine visit. This visit was provided via telemedicine using interactive, secure video conferencing. The consult began at 2210 and ended 2230 on 08/03/2022. Based on a discussion with the referring provider and areview of the patient's medical chart, it was determined that telemedicine was an appropriate and effective means for delivering care to this patient. The patient is located at [facility]. The consulting provider is located at home address in [facility]. OBS documented in this encounter Plan of Treatment Scheduled Referrals Name Type Priority Associated Diagnoses Order S chedule Admit to Skilled Care Referral Routine Ordere d: 08/09/2022 Physical Therapy Referral Routine Status post left knee Or dered: 08/09/2022 replacement Acute pain of le ft knee Falls frequently Occupational Therapy Referral Routine Status post left kne e Ordered: 08/09/2022 replacement Acute pain of le ft knee Falls frequently Primary Care Follow-Up Referral Routine Status post left k nee Ordered: 08/09/2022 replacement Acute pain of left knee documented as of this encounter Procedures Procedure Name Priority Date/Time Associated Comments Diagnosis CBC AND DIFFERENTIAL Routine 08/08/2022 4:26 PM R esults for this PANEL CDT procedure are i n the results section. COMPLETE BLOOD Routine 08/08/2022 4:26 PM Results for this COUNT-W/DIFF CDT procedure are i n the results section. BASIC METABOLIC PANEL Routine 08/08/2022 4:26 PM Results for this CDT procedure are i n the results section. documented in this encounter Results (ABNORMAL) Complete Blood Count-W/Diff (08/08/2022 4:26 PM CDT) [facility] WBC 6.5 3.5 - 10.5 08/08/2022 [facility] x10(9)/L 5:11 PM CDT [facility] RBC 4.28 3.90 - 08/08/2022 [facility] 5.03 5:11 PM CDT [facility] x10(12)/L [facility] Hemoglobin 13.3 12.0 - 08/08/2022 [facility] 15.5 g/dL 5:11 PM CDT [facility] HCT 40.7 34.9 - 08/08/2022 [facility] 44.5 % 5:11 PM CDT [facility] MCV 95.1 80.0 - 08/08/2022 [facility] 100.0 fL 5:11 PM CDT [facility] MCH 31.1 27.6 - 08/08/2022 [facility] 33.3 pg 5:11 PM CDT [facility] MCHC 32.7 31.5 - 08/08/2022 [facility] 35.2 g/dL 5:11 PM CDT [facility] RDW 14.0 11.9 - 08/08/2022 [facility] 15.5 % 5:11 PM CDT [facility] Platelets 391 150 - 450 08/08/2022 [facility] x10(9)/L 5:11 PM CDT [facility] Immature Gran % 0.3 0.0 - 0.5 [facility] % [facility]11 PM [facility] Neutrophil 3.7 1.7 - 7.0 08/08/2022 [facility] Absolute 10(9)/L 5:11 PM T [facility] Lymphocyte 1.7 1.0 - 4.8 08/08/2022 [facility] Absolute 10(9)/L 5:11 PM CDT [facility] Monocytes 1.0 (H) 0.2 - 0.9 08/08/2022 [facility] Absolute 10(9)/L 5:11 PM T [facility] Eosinophil 0.1 0.0 - 0.5 08/08/2022 [facility] Absolute 10(9)/L 5:11 PM T [facility] Basophil 0.0 0.0 - 0.3 08/08/2022 [facility] Absolute 10(9)/L 5:11 PM T [facility] Specimen Anatomical Collection Method / Collection Time Recei mariam Time (Source) Location / Volume Laterality Blood Venipuncture / 08/08/2022 4:26 08/08/2022 4:40 Unknown PM CDT PM CDT Kaelyn Geller MD LAB_1 Performing Organization Address City/State/ZIP Code Phon e Number [address] [id number] [phone] [facility] (ABNORMAL) Basic Metabolic Panel (08/08/2022 4:26 PM CDT) athologist Signature Sodium 138 136 - 145 [...] LABORATORY Calcium 9.2 8.4 - 10.4 08/08/2022 [facility] mg/dL 5:02 PM CDT [facility] BUN 27 (H) 7 - 26 08/08/2022 [facility] mg/dL 5:02 PM T [facility] Creatinine 1.26 (H) 0.55 - 08/08/2022 [facility] 1.02 mg/dL 5:02 PM CDT [facility] Glucose 88 70 - 100 08/08/2022 [facility] mg/dL 5:02 PM T [facility] Comment: The given reference range is fo r the fasting state. Non-fasting reference range for glucose is 70 - 180 mg/dL. GFR, Estimated 44 (L) >60 mL/min/1.73m2 08/08/2022 5:02 [facility] Specimen Anatomical Collection Method / Collection Time Recei mariam Time (Source) Location / Volume Laterality Blood Venipuncture / 08/08/2022 4:26 08/08/2022 4:40 Unknown PM CDT PM CDT Kaelyn Geller MD LAB_1 Performing Organization Address City/State/ZIP Code Phon e Number [facility] [address] [place] [address] [facility] documented in this encounter Visit Diagnoses Diagnosis Left knee pain - Primary Pain in joint, lower leg Status post left knee replacement Acute pain of left knee Falls frequently Personal history of fall Falls frequently Personal history of fall Recurrent major depressive disorder, in full remission (HRC) Hx of pulmonary embolus Personal history of pulmonary embolism Chronic kidney disease, stage 3 unspecif ied (HRC) Plan of Care - Johanna Newton RN - 08/09/2022 10:15 AM CDT Patient is alert and oriented, shaky and weak, but this improves once patient is standing up with walker. Patient needs assist of 1, gait belt and walker, is incontinent of urine, padded. Patient complained of left knee pain 6/10 with ambulation, oxycodone 2.5 mg given at 0821 with relief. Scheduled tylenol given. Patient ate 100% of breakfast. Left knee incision is approximated, open to air, scheduled lidocaine patch applied. Family here to transport patient to TCU. BP (!) 167/84 (BP Cuff Size: Regular) Pulse 79 Temp 98.1 ??F (36.7 ??C) (Oral) Resp 20 Ht 5' 6 (1.676 m) Wt 80.6 kg (177 lb 9.6 oz) SpO2 92% BMI 28.67 kg/m?? on RA. Johanna Newton RN 08/09/2022, 10:17 AM Plan of Care - Carola Sánchez COTA/Heidi - 08/09/2022 10:05 AM CDT [facility] Occupational Therapy Discharge Summary Patient: Melanie Frederick Date: 08/09/2022 Date of : 1945 SUMMARY: Patient admitted following multiple falls at home since having left total knee arthroplastysurgery and uncontrolled pain in knee. Patient has been making slow progress towards her goals. Painis now controlled. At discharge patient was setup assist for upper body and min/mod assist for lowerbody ADL's. Plan is for patient to discharge to TCU closer to her home for continued rehabilitation.Recommend patient continue skilled OT to maximize ADL independence and safety prior to returning home. Progress towards goals: Goals Goals: upper extremity Home Exercise Program Patient will complete home exercise program with focus on: strengthening, coordination, endurance, SROM Frequency: 100% of trials Level of Assist: with verbal cues Goal to be met by: 08/16/22 Status: goal progressing, discharged from facility (2 x 10 1 lb weight) ADL UE Dressing Goal Patient will dress UE: t-shirt, gown Frequency: >90% of opportunities Level of Assist: independently Goal to be met by: 08/16/22 Status: goal progressing, discharged from facility LE Dressing Goal Patient will dress LE: briefs, pants, socks Frequency: >90% of opportunities Level of Assist: with min assist, with verbal cues Goal to be met by: 08/16/22 Status: progressing slower than expected, discharged from facility (mod/max assist) Grooming Goal Patient will complete groomin tasks Frequency: >90% of opportunities Level of Assist: with stand-by assist Goal to be met by: 08/16/22 Status: progressing slower than expected, discharged from facility (able to stand for only less then2 min at sink) ADL Toileting Goal Patient will complete toilet/commode transfer with: FWW and grab bar on R side Frequency: >90% of opportunities Level of Assist: with stand-by assist Goal to be met by: 08/16/22 Status: goal progressing, discharged from facility (min assist) ADL Clothing Management Goal Patient will manage clothing: pre/post toileting Frequency: 75-90% of opportunities Level of Assist: with stand-by assist (SBA/CGA) Goal to be met by: 08/16/22 Status: goal progressing, discharged from facility ADL Bathing Patient will complete: 75% of bathing tasks Frequency: 75-90% of opportunities Level of Assist: with min assist, set-up Goal to be met by: 08/16/22 Status: progressing slower than expected, discharged from facility (completed seated - not tolerating standing at sink) GERRI Whelan 08/09/2022, 12:22 PM Associated attestation - Lisa Newton OTR/L - 08/09/2022 12:32 PM CDT Pt status and plan of care reviewed. I am in agreement with patient discharging to TCU for continuedrehabilitation closer to home. No further skilled occupational therapy services are indicated at this time. Patient is discharged from OT. 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 Plan: Pain control, PT, OT, safe use of assistive equipment Subjective: I am glad I have a place to go. Referring to TCU Objective: Patient is alert and oriented, can be shaky when up and ambulating, gait is unsteady. Lungs clear, HR regular, bowel sounds hypoactive. Patient had a large BM yesterday, refused scheduled sennakot, took scheduled miralax. Patient complained of left knee pain this AM, oxycodone 2.5 mg given at 0745 with relief, scheduled tylenol given. Patent ambulates with assist of 1, gait belt and walker. Continues to need instruction and cuing for safe transfers from standing to sitting on toilet or chair. Patient was hypertensive this AM, amlodipine started this afternoon. Left knee incision is approximated, 2+ edema surrounding, ice packs applied for comfort. BP 138/78 (BP Cuff Size: Regular) Pulse 88 Temp 98.8 ??F (37.1 ??C) (Oral) Resp 21 Ht 5' 6 (1.676 m) Wt 80.6 kg (177 lb 9.6 oz) SpO2 95% BMI 28.67 kg/m?? on RA. Continue to monitor and care for this patient. Johanna Newton RN 08/08/2022, 3:30 PM --- End of Report --- Plan of Care - Ping Nesbitt RN - 08/08/2022 2:37 PM CDT Problem: Adult Inpatient Plan of Care Goal: Plan of Care Review Flowsheets (Taken 08/08/2022 8557) Progress: no change Plan of Care Reviewed With: patient spouse daughter Note: Plans to discharge tomorrow to [facility] for TCU, family will pickle solution maker around 1000, alert andoriented, working with therapies, continue cares. Plan of Care - Johanna Newton RN - 08/07/2022 4:26 PM CDT [facility] Plan of Care Note Assessment: 77 year-old patient here S/P falls at home, S/P left total knee arthroplasty on 07/15. Hx: CKD, PE on Xerelto. Plan: Pain control, PT, OT, encouragement to move Subjective: I have an overactive bladder. Objective: Patient is alert and oriented, HR regular, lungs clear, bowel sounds present, patient hada large, partially incontinent, loose stools this AM, scheduled bowel meds held. Patient up to BR with assist of 1, gait belt and walker, patient needs coaching on getting squared to the toilet and walker before sitting down. Patient ambulated from BR to up in chair, gait is unsteady, patient is shakywhen just getting up. Left knee has 2+ edema, incision is approximated, no drainage and is open to air, handy-skin is pink/red and warm, ice packs applied for comfort. Patient complained of 3-4/10 left thigh, knee pain, scheduled tylenol given, oxycodone 2.5 mg given at 0900 prior to PT. BP (!) 165/93 (BP Cuff Size: Regular) Pulse 86 Temp 98.2 ??F (36.8 ??C) (Oral) Resp 18 Ht 5' 6 (1.676 m) Wt 80.6 kg (177 lb 9.6 oz) SpO2 94% BMI 28.67 kg/m?? on RA. Patient has some anxiety about falling, needs reassurance and re-enforcement on safe ambulation and transfers. Continue to monitor and car e for this patient. Johanna Newton RN 08/07/2022, 4:26 PM --- End of Report --- Plan of Care - Pati Wang - 08/07/2022 3:05 PM CDT Problem: Adult Inpatient Plan of Care Goal: Plan of Care Review Outcome: Progressing Flowsheets (Taken 08/07/2022 1504) Plan of Care Reviewed With: patient Note: Patient was admitted with left knee pain. She had surgery 3 weeks ao and has had trouble with knee. She has PT/OT. May need mcfp placement. Continue caes. Plan of Care - Ping Nesbitt RN - 08/06/2022 3:18 PM CDT Problem: Adult Inpatient Plan of Care Goal: Plan of Care Review Flowsheets Taken 08/06/2022 1507 Progress: improving Taken 08/05/2022 1427 Plan of Care Reviewed With: patient Note: Admitted observation, some nausea and vomited this am, given medications and had good BM so feels better, alert and oriented, referrals for TCU stays near home in [facility] left knee swollen, ice on, did have home care thru [facility] on discharge after TKA on 07/15/[address] [facility],continue cares. Plan of Care - Ping Oneill RN - 08/06/2022 4:00 AM CDT [facility] Plan of Care Note Assessment: Patient here for Left Knee Pain Post op DOS 07-15-22, after falling at home x 2. HX: Recurrent Major Depressive Disorder,(full remission), Pulmonary Embolus, CKD 3 Plan: Therapies, Pain Control to Knee, Encourage Ambulation/Activity Subjective: I'm going to fall. Objective: Patient is alert and oriented. When she is directed to put most of her wait, when ambulating on her Right leg, she does the opposite and puts it on her operative leg, (L). She is hesitant toget out of bed to ambulate to the bathroom. She had Tylenol ES at 1958 with relief and was sleeping.During the later portion of the shift she was awake reading her book, (0250) and offered toileting and pain medication and throat lozenge. She declined all and rated her pain at a 2. Thirty minutes later, she calls and requests pain medication, that pain is now a 7, that she is wet, wanted to be changed in bed, and needs a throat lozenge. Oxycodone 2.5 mg and Hydroxyzine 25 mg po given for Left knee pain. She ambulated to the bathroom, with 1 assist and walker and gait belt and pulled on advertising copy writer and then sat down hard on the toilet, almost causing advertising copy writer to fall while pulling off pad, pushing advertising copy writer Patient had a large incontinent void. Complete bed change was needed and gown change. Patient needed 2 assist to help return to bed. She was anxious at this time and wanted more Seroquel to help her sleep. Patient continued to read for a time. LS are clear and diminished. Left knee incision is intact, no signs or symptoms of infection. CMS is intact. Patient needs encouragement to increase activity and ambulation. Try to distract so she does not think of falling during ambulation. Call light within her reach, hourly rounding was completed. Ping Oneill RN 08-06-22 0515 AM --- End of Report --- Plan of Care - Martina Nichols RN - 08/05/2022 4:50 PM CDT Patient reports pain in the left knee intermittently throughout this shift. Reports some relief withscheduled Acetaminophen and prn Oxycodone and Hydroxyzine. Cold pack also applied. Incision site on the left knee is clean, dry, and intact. Slight redness and swelling is present. CMS is intact. Wireless Field Technician ior lung sounds were slightly diminished in the upper left lung, but cleared with cough and deep breathing. Appetite is good, fluids provided and encouraged. Plan of Care - Lisa Newton OTR/Heidi - 08/05/2022 4:30 PM CDT Images from the original note were not included. [facility] OT Observation Rehabilitation Initial Evaluation Evaluation OT Documentation First Filed Value Flowsheet Row First Filed Value Visit Information Type of Visit evaluation, treatment Filed at 08/05/20221450 Location at bedside Filed at 08/05/20221450 OT # of Individual Minutes in PM Session 35 [[id number]] Filed at 08/05/20221450 Assessment/Recommendations/Plan Criteria for Skilled Therapeutic Interventions Met (OT) yes, treatment indicated Filed at Treatment Indicated for pain, weakness, impaired balance, impaired ROM, decreased activity tolerance, ADL skills Filed at 08/05/20221450 Rehab Potential (OT) good, to achieve stated therapy goals Filed at 08/05/20221450 Frequency of Inpatient Therapy 1-2 sessions/day, Mon - Fri Filed at 08/05/20221450 Duration of Inpatient Therapy ongoing inpatient OT while pt hospitalized until goals met Filed at 08/05/20221450 Planned Therapy Interventions (OT) activity tolerance training, adaptive equipment training, BADL retraining, occupation/activity based interventions, patient/caregiver education/training, ROM/therapeutic exercise, strengthening exercise, transfer/mobility retraining Filed at 08/05/20221450 Demonstrates Need for Referral to Another Service (OTl) physical therapy Filed at 08/05/20221450 Plan for Next Session ADLs, transfers, mobility Filed at 08/05/20221450 (OT) If discharged from hospital today, patient needs minimum assist for, basic ADLs of dressing, basic ADLs of bathing, stand-by assist, contact guard assist, basic ADLs of grooming, bed mobility, toilet transfers, transfers, bath transfers, transportation assist Filed at 08/05/20221450 (OT) Anticipated Equipment Needs at Discharge Has own equipment Filed at 08/05/20221450 Equipment Given at Discharge Has own equipment, None Filed at 08/05/20221450 (OT) Discharge Recommendations TCU, 24 hour assist Filed at 08/05/20221450 (OT) Discharge Recommendations Discussion Discharge recommendations discussed with, patient, patientagrees with recommendations Filed at 08/05/20221450 Patient Response to Therapy Participated in session but limited by:, Pain, Other (see comments) [weakness] Filed at 08/05/2022 1451 Pain Pt rated L knee pain at a 5/10 this afternoon. Requested pain meds at end of session and nursing was notified. Filed at 08/05/2022 1451 (OT) Additional Assessment/Recommendations Comments Patient is a pleasant 77 y.o. right hand dominant female who was admitted to the ED on 08/03/2022 for multiple falls at home since having a left total knee arthroplasty performed on 07/15/2022. She presented to skilled OT evaluation today with the following symptoms: L knee pain, decreased ROM, impaired balance, and reduced ability to complete routine self-cares, mobility, and transfers at her PLOF. She ambulated to the bathroom this afternoon witha FWW with CGA x1. She required Sterling for clothing management pre-toileting and was found to be incontinent of urine, requiring a fresh pad and gown (Sterling to don gown and maxA to don fresh pad). Patientdid have one LOB when turning to ambulate toward the sink after toileting. Therapist provided CGA for steadying. She tolerated ambulating to the sink to complete grooming tasks with CGA. Ended session returning to bedside to lie down and rest with therapist providing SBA/CGA for bed mobility. Patient w ill continue to benefit from ongoing skilled OT services to maximize her safety and independence with routine self-cares, mobility, and transfers. OT recommending discharge to TCU with 24 hour assist due to ongoing balance deficits, L knee pain, and recent fall history. Filed at 08/05/2022 1451 General Information Onset of Illness/Injury or Date of Surgery 08/03/22 Filed at 08/04/2022 1600 Pertinent History of Current Functional Problem 07/15/22 pt had a TKA on the L knee Filed at 08/04/2022 1600 History of Falls YES Filed at 08/05/2022 1451 Existing Precautions/Restrictions fall Filed at 08/04/2022 1600 Weight-Bearing Status LLE [WBAT] Filed at 08/04/2022 1600 Hearing - Left Ear No hearing impairment Filed at 08/03/2022 2300 Hearing - Right Ear No hearing impairment Filed at 08/03/2022 2300 Living Environment Home Accessibility stairs within home, other (see comments) [All needs met on the main level] Filed at 08/04/2022 1600 Number of Stairs, Main Entrance two Filed at 08/05/2022 1451 Stair Railings, Main Entrance railing on left side (ascending) Filed at 08/05/2022 1451 Number of Stairs, Within Home, Primary two Filed at 08/04/2022 1600 Stair Railings, Within Home, Primary railing on left side (ascending) Filed at 08/04/2022 1600 Medication management by patient Filed at 08/05/2022 1429 How medications are managed bottles, pillbox Filed at 08/05/2022 1429 Functional Screen Ambulation Assistive equipment and person Filed at 08/03/2022 2300 Transferring Assistive equipment and person Filed at 08/03/2022 2300 Toileting Assistive equipment and person Filed at 08/03/2022 2300 Bathing Assistive person Filed at 08/03/2022 2300 Dressing Assistive person Filed at 08/03/2022 2300 Eating Independent Filed at 08/03/2022 2300 Communication Understands/communicates without difficulty Filed at 08/03/2022 2300 Swallowing Swallows foods/liquids without difficulty Filed at 08/03/2022 2300 Meal Preparation Other (comment) [shared responsibility with ] Filed at 08/05/2022 145 Laundry Assistive person [defers to spouse] Filed at 08/05/2022 1451 Finances Independent Filed at 08/05/2022 145 Shopping Defers to spouse Filed at 08/05/2022 145 Transportation Relies on family/friends [has not been driving since recent knee surgery] Filed at 08/05/2022 1451 Vocation Retired Filed at 08/05/2022 145 Functional Level Comment failed independence at home with falls Filed at 08/05/2022 1429 AM-PAC 6 Clicks OT Putting on and taking off regular lower body clothing? 2-->A lot (max/mod A) Filed at 08/05/2022 1451 Bathing (including washing, rinsing, drying)? 2-->A lot (max/mod A) Filed at 08/05/2022 1451 Toileting, which includes using toilet, bedpan or urinal? 2-->A lot (max/mod A) Filed at 08/05/2022 145 Putting on and taking off regular upper body clothing? 3-->A little (sup/min A) Filed at 08/05/2022 145 Taking care of personal grooming such as brushing teeth? 3-->A little (sup/min A) Filed at 08/05/2022 145 Eating meals? 4-->None (independent) Filed at 08/05/20221450 Raw Score 16 Filed at 08/05/20221450 Standardized Score 35.96 Filed at 08/05/20221450 Percent Impaired 53.32% impaired Filed at 08/05/20221450 Bed Mobility Bed Mobility Physical Assist/Nonphysical Assist SBA, requires steadying assist Filed at 08/05/20221450 Bed Mobility Assistive Device bed rails, HOB elevated Filed at 08/05/20221450 Bed Mobility Level of [place] Stand-By Assistance: needs cues or supervision to complete activity without physical assistance, Contact Guard Assistance: light physical assist, helper performs <5% of activity Filed at 08/05/20221450 Sit to Stand Sit to Stand Physical Assist/Nonphysical Assist requires steadying assist Filed at 08/05/20221450 Sit to Stand Assistive Device gait belt, walker, 2 wheeled Filed at 08/05/20221450 Sit to Stand Level of [place] Contact Guard Assistance: light physical assist, helper performs <5% of activity Filed at 08/05/20221450 Car Transfer Toilet Transfer Toilet Transfer Physical Assist/Nonphysical Assist requires steadying assist (4) Filed at 451 Toilet Transfer Assistive Device gait belt, grab bars, walker, 2 wheeled Filed at 08/05/2022 145 (OT) Toilet Transfer Level of [place] Contact Guard Assistance: light physical assist, helper performs <5% of activity Filed at 08/05/20221450 BADLs BADLs grooming, UE dressing, LE dressing, toileting Filed at 08/05/20221450 Eating Grooming Grooming Tasks completed washing, rinsing, drying hands Filed at 08/05/2022 145 (OT) Grooming Level of [place] Contact Guard Assistance: light physical assist, helper performs<5% of activity Filed at 08/05/2022 1451 Grooming Additional Documentation CGA at sink with FWW Filed at 08/05/2022 145 Upper Body Dressing Articles of clothing completed hospital gown Filed at 08/05/2022 145 (OT) Upper Body Dressing Level of [place] Minimal Assistance: needs helper to perform <25% of activity Filed at 08/05/2022 145 Upper Body Dressing Additional Documentation Sterling to tie gown in back Filed at 08/05/2022 145 Lower Body Dressing Clothing completed -- [pad] Filed at 08/05/2022 1451 (OT) Lower Body Dressing Level of [place] Maximal Assistance: needs helper to perform 50-75% ofactivity Filed at 08/05/2022 145 Lower Body Dressing Additional Documentation maxA to don fresh pad - pt was found to be incontinent of urine. Assist to manage brief over hips and readjust tabs. Filed at 08/05/2022 145 Bathing Toileting Toileting Physical/Nonphysical Assist requires steadying assist during any part of task Filed at 08/05/2022 1451 (OT) Toileting Level of [place] Moderate Assistance: needs helper to perform 25-50% of activityFiled at 08/05/2022 145 Toileting Additional Documentation Mod-MaxA - pt was indep with handy hygiene, however, required maxAfor managing her brief over her hips Filed at 08/05/2022 145 Cognition Orientation Status (Cognition) oriented x 4 Filed at 08/05/2022 145 Level of Consciousness alert Filed at 08/04/2022 1600 ROM Dominant Hand Right Filed at 08/05/2022 145 Right Upper Extremity ROM WFL AROM Filed at 08/05/2022 1451 Left Upper Extremity ROM WFL AROM Filed at 08/05/2022 145 Manual Muscle Testing New Vehicle Sales Consultant Strength Right New Vehicle Sales Consultant Good Filed at 08/05/2022 145 Left New Vehicle Sales Consultant Good Filed at 08/05/2022 145 Pinch Strength Coordination Right hand, manipulation of objects normal performance Filed at 08/05/2022 145 Left hand, manipulation of objects normal performance Filed at 08/05/2022 145 Light Touch RUE Light Touch intact Filed at 08/05/2022 145 LUE Light Touch intact Filed at 08/05/2022 145 Sharp/Dull RUE Sharp/Dull Discrimination intact Filed at 08/05/2022 145 LUE Sharp/Dull Discrimination intact Filed at 08/05/2022 145 General Therapy Interventions ADL/IADL Retraining Patient was seen this afternoon for toileting, dressing, and standing grooming tasks. Pt was agreeable to ambulating to the bathroom to complete toileting tasks with a FWW and CGA for steayding/balance. She was independent with handy hygiene, however, required maxA for clothing management and donning a pad. Pt was found to be incontinent of urine when therapist entered room. Therapist also had patient change into a fresh gown with Sterling to tie gown in back. Followed with ambulatingto the sink to complete hand hygiene. Patient did have one loss of balance when turning her body toward the sink - therapist provided Sterling to steady patient and cues to hold onto her walker. Therapist continued to provide CGA for standing grooming tasks at the sink and when pt walked back to bedside. Ended session lying back down in bed with therapist providing CGA and verbal cues for safe transferring techniques and repositioning. She was left with all needs met and her call light within reach. Nursing was notified of patient request for more pain medication. See objective and assessment sections for further details regarding today's evaluation and treatment session. Filed at 08/05/20221450 Discharge Recommendations (OT) Discharge Recommendations TCU, 24 hour assist Filed at 08/05/20221450 (OT) Discharge Recommendations Discussion Discharge recommendations discussed with, patient, patientagrees with recommendations Filed at 08/05/2022 145 1 unit(s) OT evaluation, and 2 unit(s) self-care/home management training. Goals OT Goals - First Filed Value Flowsheet Row First Filed Value Goals Goals ADL UE dressing, ADL LE dressing, ADL grooming, ADL toileting, ADL bathing Filed at 451 ADL UE Dressing Goal Patient will dress UE t-shirt, gown Filed at 08/05/2022 145 Frequency >90% of opportunities Filed at 08/05/20221450 Level of Assist independently Filed at 08/05/20221450 Goal to be met by 08/16/22 Filed at 08/05/2022 145 Status new goal, goal progressing [Sterling to don fresh gown and tie in back] Filed at 08/05/20221450 LE Dressing Goal Patient will dress LE briefs, pants, socks Filed at 08/05/2022 145 Frequency >90% of opportunities Filed at 08/05/2022 145 Level of Assist with min assist, with verbal cues Filed at 08/05/2022 145 Goal to be met by 08/16/22 Filed at 08/05/2022 145 Status new goal, goal progressing [maxA to don fresh pad] Filed at 08/05/20221450 ADL Eating Grooming Goal Patient will complete grooming 2 tasks Filed at 08/05/20221450 Frequency >90% of opportunities Filed at 08/05/20221450 Level of Assist with stand-by assist Filed at 08/05/20221450 Goal to be met by 08/16/22 Filed at 08/05/2022 145 Status new goal Filed at 08/05/2022 145 ADL Toileting Goal Patient will complete toilet/commode transfer with FWW and grab bar on R side Filed at 08/05/20221450 Frequency >90% of opportunities Filed at 08/05/2022 145 Level of Assist with stand-by assist Filed at 08/05/2022 145 Goal to be met by 08/16/22 Filed at 08/05/2022 145 Status new goal, goal progressing [Sterling for clothing management pre toileting, maxA post toileting, pt indep with handy hygiene] Filed at 08/05/2022 145 ADL Clothing Management Goal Patient will manage clothing pre/post toileting Filed at 08/05/2022 145 Frequency 75-90% of opportunities Filed at 08/05/2022 145 Level of Assist with stand-by assist [SBA/CGA] Filed at 08/05/2022 145 Goal to be met by 08/16/22 Filed at 08/05/2022 145 Status new goal, goal progressing [[place] pre-toileting and maxA to readjust tabs on brief and manage over hips post toileting] Filed at 08/05/2022 1451 ADL Tub Goal ADL Bathing Patient will complete 75% of bathing tasks Filed at 08/05/2022 1451 Frequency 75-90% of opportunities Filed at 08/05/2022 1451 Level of Assist with min assist, set-up Filed at 08/05/2022 145 Goal to be met by 08/16/22 Filed at 08/05/2022 1451 Status new goal Filed at 08/05/2022 1451 I certify the need for these services furnished under this plan of treatment and while under my care. Lisa Newton, OTR/L 08/05/2022, 4:31 PM Associated attestation - Chester La DO - 08/05/2022 11:07 PM CDT Reviewed and agree with evaluation and treatment plan. Plan of Care - Ping Nesbitt RN - 08/05/2022 2:29 PM CDT Problem: Adult Inpatient Plan of Care Goal: Plan of Care Review Flowsheets (Taken 08/05/2022 1427) Progress: no change Plan of Care Reviewed With: patient Note: Admitted from [place] ED with left knee pain, S/P total knee on 07/15/22, has had falls at home, alert and oriented, will look for TCU placement, working with therapies, continue cares. Plan of Care - Jimena Escalante RN - 08/05/2022 1:08 AM CDT [facility] Plan of Care Note Assessment: Patient reporting pain in left knee as aching and 2-3/10. Pain improved after scheduled tylenol and as needed Hydroxyzine. Left knee incision open to air, scabbed over, 1+ edema present. Urinary frequency reported, due to overactive bladder. Patient was seeing [facility] for this issue, minimal records from outside facilities as patient is from [place], [place]. Patient up to the bathroom and bedside commode with 1 assist, gait belt and walker. Patient intermittently incontinent overnight. Slightly elevated blood pressure, other vital signs stable, adequate intake and output. Plan: Safety, PT in AM, Pain Control Subjective: I want to get a good night sleep. Objective: BP (!) 150/79 (BP Cuff Size: Regular) Pulse 87 Temp 98.5 ??F (36.9 ??C) (Oral) Resp18 Ht 5' 6 (1.676 m) Wt 81.8 kg (180 lb 6.4 oz) SpO2 92% BMI 29.12 kg/m?? Jimena Escalante RN 08/05/2022, 1:19 AM --- End of Report --- Plan of Care - Jimena Escalante RN - 08/04/2022 6:46 PM CDT Problem: Adult Inpatient Plan of Care Goal: Patient-Specific Goal (Individualized) Flowsheets (Taken 08/04/2022 1845) Anxieties, Fears or Concerns: None Individualized Care Needs: Pain Management, Rest Patient-Specific Goals (Include Timeframe): I want to get a good night sleep. Jimena Escalante RN 08/04/2022, 6:46 PM Plan of Care - Belia Foley, PT - 08/04/2022 4:45 PM CDT Images from the original note were not included. [facility] PT Observation Rehabilitation Initial Evaluation Evaluation PT First Filed Value Flowsheet Row First Filed Value Visit Information Type of Visit evaluation, PT visit Filed at 08/04/2022 1600 Location at bedside Filed at 08/04/2022 1600 PT # of Minutes in PM Session 30 Filed at 08/04/2022 1600 Assessment/Recommendations/Plan Criteria for Skilled Interventions Met (PT) yes, problem areas identified and treatment is indicatedFiled at 08/04/2022 1600 Treatment Indicated for pain, weakness, impaired balance, mobility, gait, decreased activity tolerance Filed at 08/04/2022 1600 Rehab Potential (PT) good, to achieve stated therapy goals Filed at 08/04/2022 1600 Frequency of Inpatient Therapy 1-2 sessions/day Filed at 08/04/2022 1600 Duration of Inpatient Therapy ongoing inpatient PT while pt hospitalized until goals met Filed at 08/04/2022 1600 Planned Therapy Interventions (PT) activity tolerance training, balance training, gait training, home exercise program, modalities, neuromuscular re- education, ROM (range of motion), strengthening Filed at 08/04/2022 1600 Plan for next session bed mobility, gait training, stair climbing, sitting balance activities, standing balance activities, strengthening, stretching, ROM Filed at 08/04/2022 1600 (PT) If discharged from hospital today, patient needs transfers, walking, stairs, max assist, total assist Filed at 08/04/2022 1600 Equipment Given at Discharge Has own equipment Filed at 08/04/2022 1600 (PT) Discharge Recommendations if support system is able to provide recommended level of assist, home Filed at 08/04/2022 1600 (PT) Discharge Recommendations Discussion Discharge recommendations discussed with, patient Filed at1 1600 Recommend PT for: ROM/strengthening, mobility, gait training, stair training, balance/coordination, exercise program training, activity tolerance training Filed at 08/04/2022 1600 Patient Response to Therapy Participated in session but limited by:, Lethargy Filed at 08/04/2022 1600 Pain 2/10 at rest and 9/10 with movment. Filed at 08/04/2022 1600 (PT) Additional Assessment/Recommendations Pt is a 77 year old female who presents to physical therapy on observation for L knee pain. Pt had a recent TKA on 07/15/22 and has since fallen twice at home. She reports increased pain in the L knee with WB and ROM. She is appropriate for physical therapy to address gait, WB, knee strength, activity tolerance, and transfer training. Filed at 08/04/2022 1600 General Information Onset of Illness/Injury or Date of Surgery 08/03/22 Filed at 08/04/2022 1600 Pertinent History of Current Functional Problem 07/15/22 pt had a TKA on the L knee Filed at 08/04/2022 1600 History of Falls 2 Filed at 08/04/2022 1600 Existing Precautions/Restrictions fall Filed at 08/04/2022 1600 Weight-Bearing Status LLE [WBAT] Filed at 08/04/2022 1600 Hearing - Left Ear No hearing impairment Filed at 08/03/2022 230 Hearing - Right Ear No hearing impairment Filed at 08/03/2022 2300 Living Environment Living Arrangements (select all that apply) Spouse/significant other Filed at 08/03/2022 2200 Home Accessibility stairs within home, other (see comments) [All needs met on the main level] Filed at 08/04/2022 1600 Number of Stairs, Within Home, Primary two Filed at 08/04/2022 1600 Stair Railings, Within Home, Primary railing on left side (ascending) Filed at 08/04/2022 1600 Transportation Anticipated car, drives self Filed at 08/04/2022 1600 Prior Equipment Walker, 2 wheeled Filed at 08/04/2022 1600 Functional Screen Ambulation Assistive equipment and person Filed at 08/03/2022 230 Transferring Assistive equipment and person Filed at 08/03/2022 230 Toileting Assistive equipment and person Filed at 08/03/2022 230 Bathing Assistive person Filed at 08/03/2022 230 Dressing Assistive person Filed at 08/03/2022 230 Eating Independent Filed at 08/03/2022 230 Communication Understands/communicates without difficulty Filed at 08/03/2022 230 Swallowing Swallows foods/liquids without difficulty Filed at 08/03/2022 2300 AM-PAC 6 Clicks PT Turning from your back to your side while in a flat bed WITHOUT using bedrails 4-->None (independent) Filed at 08/04/2022 1600 Moving from lying on your back to sitting on the side of a flat bed WITHOUT using bedrails 4-->None (independent) Filed at 08/04/2022 1600 Moving to and from a bed to a chair (including a wheelchair) 3-->A little (sup/min A) Filed at 08/04/2022 1600 Standing up from a chair using your arms (e.g., wheelchair or bedside chair) 3-->A little (sup/min A) Filed at 08/04/2022 1600 To walk in hospital room 2-->A lot (max/mod A) Filed at 08/04/2022 1600 Climbing 3-5 steps with a railing 1-->Total (total or can't do) Filed at 08/04/2022 1600 Raw Score 17 Filed at 08/04/2022 1600 Standardized Score 39.67 Filed at 08/04/2022 1600 Percent Impaired 43.83% impaired Filed at 08/04/2022 1600 Bed Mobility: Supine to Sit Supine to Sit Level of [place] Stand-By Assistance: needs cues or supervision to complete activity without physical assistance Filed at 08/04/2022 1600 Sit to Stand Physical Assist/Nonphysical Assist requires adaptive equipment to complete tasks, requires extra time to complete, safety considerations, requires assist with verbal cueing, requires lifting assist formore than steadying Filed at 08/04/2022 1600 Assistive Device Walker, 2 wheeled Filed at 08/04/2022 1600 Sit to Stand Level of [place] Contact Guard Assistance: light physical assist, helper performs <5% of activity Filed at 08/04/2022 1600 Stand to Sit Stand to Sit Level of [place] Contact Guard Assistance: light physical assist, helper performs <5% of activity Filed at 08/04/2022 1600 Transfers (Bed/Chair) Safety Concerns losing balance backward, decreased balance during turns, other (see comments) [Poor WB on L LE] Filed at 08/04/2022 1600 (PT) Transfers (Bed/Chair) Level of [place] Maximal Assistance: needs helper to perform 50-75% of activity Filed at 08/04/2022 1600 Toilet Transfer Car Transfer Wheelchair Locomotion Stairs Ambulation Cognition Level of Consciousness alert Filed at 08/04/2022 1600 Range of Motion Manual Muscle Testing MMT Right Lower Extremity WFL Filed at 08/04/2022 1600 MMT Left Lower Extremity impaired Filed at 08/04/2022 1600 Light Touch Light Touch Right Lower Extremity intact Filed at 08/04/2022 1600 Light Touch Left Lower Extremity intact Filed at 08/04/2022 1600 Sharp/Dull Proprioception Tone Balance Sitting Balance Static good Filed at 08/04/2022 1600 Sitting Balance Dynamic good Filed at 08/04/2022 1600 Standing Balance Static fair Filed at 08/04/2022 1600 Standing Balance Dynamic poor Filed at 08/04/2022 1600 Vestibular General Interventions Planned Therapy Interventions (PT) activity tolerance training, balance training, gait training, home exercise program, modalities, neuromuscular re- education, ROM (range of motion), strengthening Filed at 08/04/2022 1600 Knee Extension Stretch 1 min Filed at 08/04/2022 1600 LAQ x 10 reps b Filed at 08/04/2022 1600 Seated Heel Slides x 10 reps alva Filed at 08/04/2022 1600 Seated Knee Flexion Stretch x 1 min Filed at 08/04/2022 1600 Additional Documentation Educated pt on knee positioning, ankle pumps, and making sure to complete knee flexion and ext ROM to avoid stiffness. Filed at 08/04/2022 1600 Discharge Function and Recommendations (PT) Discharge Recommendations if support system is able to provide recommended level of assist, home Filed at 08/04/2022 1600 (PT) Discharge Recommendations Discussion Discharge recommendations discussed with, patient Filed at1 1600 Recommend PT for: ROM/strengthening, mobility, gait training, stair training, balance/coordination, exercise program training, activity tolerance training Filed at 08/04/2022 1600 Equipment Given at Discharge Has own equipment Filed at 08/04/2022 1600 Goals PT Goals - First Filed Value Flowsheet Row First Filed Value Goals Bed Mobility Patient will transfer to/from supine with independent Filed at 08/04/2022 1600 Functional Outcome in order to be safe in their living environment Filed at 08/04/2022 1600 Goal to be met by 08/09/22 Filed at 08/04/2022 1600 Status new goal Filed at 08/04/2022 1600 General Mobility Transfers Patient will transfer bed to/from chair with Filed at 08/04/2022 1600 Level of Assist Modified independent Filed at 08/04/2022 1600 Functional Outcome in order to be safe in their living environment Filed at 08/04/2022 1600 Goal to be met by 08/09/22 Filed at 08/04/2022 1600 Status new goal Filed at 08/04/2022 1600 Ambulation Patient will ambulate 150 feet using, wheeled walker Filed at 08/04/2022 1600 Level of Assist Modified independent Filed at 08/04/2022 1600 Functional Outcome in order to be safe in their living environment Filed at 08/04/2022 1600 Goal to be met by 08/09/22 Filed at 08/04/2022 1600 Status new goal Filed at 08/04/2022 1600 Amputee ROM Amputee Lying Prone Amputee Cardiovascular Exercise Amputee Residual Limb Wrapping Stairs Patient will negotiate 2 steps with, 1 rail Filed at 08/04/2022 1600 Level of Assist SBA Filed at 08/04/2022 1600 Functional Outcome in order to be safe in their living environment Filed at 08/04/2022 1600 Goal to be met by 08/09/22 Filed at 08/04/2022 1600 Status new goal Filed at 08/04/2022 1600 Wheelchair Precautions Education Home Exercise Program TKA ROM TKA ROM Balance Sit at Edge of Bed Pathfinding Car transfers Stable Gait Pattern Free of Positional Vertigo Other Goal Other Goal 2 Other Goal 3 Belia Foley, DPT I certify the need for these services furnished under this plan of treatment and while under my care. Plan of Care - Willie Powers (Rn), RN - 08/04/2022 10:57 AM CDT [facility] Plan of Care Note Assessment: 77 y.o. female admitted to med/surg for left knee pain. Hx of total left knee arthroplasty, falls, PE, CDK3 Plan: PT/OT, pharmacological pain management, TCU placement Subjective: Your going to have me walk to the toilet? Objective: BP (!) 153/81 (BP Cuff Size: Regular) Pulse 90 Temp 98.4 ??F (36.9 ??C) (Oral) Resp18 Ht 5' 6 (1.676 m) Wt 81.8 kg (180 lb 6.4 oz) SpO2 (!) 91% BMI 29.12 kg/m?? on RA Alert and orientated x4 Lung sounds note crackles to RLL and diminished sounds to LLL Heart sounds WDL Bowel sounds present in all four quadrants Last BM reported 08/01 - pt reports feeling constipated and would like a stool softener. continent of urine, A2 with GB and walker for ambulation to toilet. Encourage activity. 2+ edema noted in LLE Rates pain denies pain with inactivity. Willie Powers RN 08/04/2022, 11:14 AM --- End of Report --- documented in this encounter Administered Medications Inactive Administered Medications - up to 3 most recent administrations Medication Order MAR Action Action Date Dose Rate Site acetaminophen (TYLENOL) tablet Given 08/03/2022 11:09 PM CDT 1,0 00 mg 1,000 mg 1,000 mg, Oral, Q6H PRN, Pain/Fever, Starting on 08/03/22 at 2156, Until 08/04/22 at 1159 acetaminophen (TYLENOL) tablet 1,000 mg Given 08/09/2022 8:18 AM CDT 1,000 mg 1,000 mg, Oral, TID, First dose (after last modification) on 08/04/22 at 1400, Until Discontinued Given 08/08/2022 8:50 PM CDT 1,000 mg Given 08/08/2022 2:34 PM CDT 1,000 mg amLODIPine (NORVASC) tablet 5 mg Given 08/09/2022 8:18 AM CDT 5 mg 5 mg, Oral, DAILY, First dose on Nicole 08/08/22 at 1445, Until Discontinued Given 08/08/2022 2:34 PM CDT 5 mg benzocaine-menthol (CEPACOL) lozenge 1 Given 08/06/2022 3:42 AM CDT 1 Lozenge Lozenge 1 Lozenge, Oral, Q2H PRN, Throat Pain, Starting on 08/05/22 at 202, Until 08/09/22 at 1226 Given 08/05/2022 8:27 PM CDT 1 Lozenge buPROPion (WELLBUTRIN XL) XL 24 hour release Given 01/2022 8:19 AM CDT 300 mg tablet 300 mg 300 mg, Oral, DAILY, First dose on 08/04/22 at 0900, Until Discontinued, Tablet should be swallowed whole. Caution: Look alike, sound-alike medication Given 08/08/2022 8:52 AM CDT 300 mg Given 08/07/2022 8:53 AM CDT 300 mg calcium carbonate (TUMS) chewable tablet Given 08/04/2022 8:38 P M CDT 1,000 mg 1,000 mg 1,000 mg, Oral, Q4H PRN, Heartburn, Starting on 08/04/22 at 2031, Until Fri08/09/22 at 1226, Each tablet provides 200 mg elemental calcium hydrOXYzine pamoate (VISTARIL) capsule 2 5 mg Given 08/07/2022 2:02 AM CDT 25 mg 25 mg, Oral, Q6H PRN, Pain, Starting on 08/03/22 at 2157, Until Fri08/09/22 at 1226 Given 08/06/2022 2:26 PM CDT 25 mg Given 08/06/2022 9:20 AM CDT 25 mg lidocaine (ASPERCREAM) 4 % Patch Applied 08/09/2022 8:19 AM CDT 1 Pat ch Left Knee patch 1 Patch 1 Patch, Transdermal, DAILY, First dose on Fri08/07/22 at 0900, Until Discontinued, Cut in half and apply both halves to left knee. Patch may remain in place for up to 12 hours in any 24 hour period, i.e. patches placed at 0800 should be removed at 2000. May cut patch to appropriate size. Patch Applied 08/08/2022 8:52 AM CDT 1 Patch Left Leg Patch Applied 08/07/2022 9:02 AM CDT 1 Patch Left Thigh melatonin tablet 6 mg Given 08/03/2022 11:09 PM CDT 6 mg 6 mg, Oral, HS PRN, Sedation, Sleep, Starting on 08/03/22 at 2157, Until Fri08/09/22 at 1226, As needed for sleep ondansetron (ZOFRAN-ODT) disintegrating tablet Given 10/06/2021 9:24 AM CDT 4 mg 4 mg 4 mg, Oral, Q8H PRN, Nausea, Vomiting, Starting on 08/03/22 at 2157, Until Fri08/09/22 at 1226, This medication is the first choice for control of nausea/vomiting. If ineffective, causing adverse effects or patient preference, consider prochlorperazine. If no IV access or when patient able to tolerate PO switch from IV to PO. 1st line - ondansetron, 2nd line - prochlorperazine, 3rd line - metoclopramide oxyCODONE (ROXICODONE) immediate release Given 08/09/2022 8:21 A M CDT 2.5 mg tablet 2.5 mg 2.5 mg, Oral, Q6H PRN, Pain, opiate aoidance pain regimen, breakthrough pain, Starting on Fri08/03/22 at 2229, Until Fri08/09/22 at 1226 Given 08/09/2022 2:37 AM CDT 2.5 mg Given 08/08/2022 7:45 AM CDT 2.5 mg polyethylene glycol (MIRALAX) oral powde r 17 g 17 g, Oral, BID PRN, Constipation, Starting on Fri at 1158, Until Fri08/09/22 at 1226, Do not add to pre-thick ened juices. Ok to add to liquid thickened with Thicken-Up. polyethylene glycol (MIRALAX) oral powde r 17 g Given 08/08/2022 8:54 AM CDT 17 g 17 g, Oral, DAILY, First dose on Fri08/06/22 at 1145, Until Discontinued, Do not add to pre-thickened juices. Ok to add to liquid thickened with Thicken-Up. Given 08/06/2022 11:58 AM CDT 17 g QUEtiapine (SEROquel) tablet 125 mg Given 08/08/2022 8:50 PM CDT 125 mg 125 mg, Oral, HS, First dose on 08/03/22 at 2300, Until Discontinued Given 08/07/2022 8:51 PM CDT 125 mg Given 08/06/2022 8:38 PM CDT 125 mg rivaroxaban (XARELTO) tablet 20 mg Given 08/08/2022 5:06 PM CDT 20 mg 20 mg, Oral, EVENING CML, First dose (after last modification) on Fri08/04/22 at 1700, Until Discontinued, Take with food Given 08/07/2022 5:25 PM CDT 20 mg Given 08/06/2022 4:19 PM CDT 20 mg senna (SENOKOT) tablet 2 Tablet Given 08/06/2022 9:19 AM CDT 2 Tablets 2 Tablet, Oral, BID PRN, Constipation, Starting on Fri08/04/22 at 1158, Until Fri08/09/22 at 1226, as laxative/stimulant agent sennosides-docusate sodium (SENOKOT S) Given 08/06/2022 8:38 PM CDT 1 Tablet 8.6-50 MG per tablet 1 Tablet 1 Tablet, Oral, BID, First dose on Fri08/06/22 at 2100, Until Discontinued, as laxative/stimulant, stool-softening agent venlafaxine (EFFEXORXR) extended release Given 08/09/2022 8:20 A M CDT 112.5 mg capsule 112.5 mg 112.5 mg, Oral, QDAY WITH MEAL, First dose on Fri08/04/22 at 0800, Until Discontinued, Capsule should be swallowed whole Given 08/08/2022 7:45 AM CDT 112.5 mg Given 08/07/2022 7:36 AM CDT 112.5 mg documented in this encounter Active and Recently Administered Medications Times are shown in CDT. Scheduled Medication Order 08/07/2022 08/08/2022 08/09/2022 acetaminophen (TYLENOL) tablet 1,000 mg 0736 (Given - Provider: Johanna Newton RN)1356 (Given - Provider: Johanna Newton RN)2050 (Given - Provider: Belia Cottrell RN) 0744 (Given - Provider: Johanna Newton RN )1434 (Given - Provider: Johanna Newton RN)2049 (Given - Provider: Belia Cottrell RN) 0818 (Given - Provider: Johanna Newton RN) 1,000 mg, Oral, TID, First dose (after l ast modification) on Fri08/04/22 at 1400, Until Discontinued amLODIPine (NORVASC) tablet 5 mg 1434 (Given - P rovider: Johanna Newton RN) 0818 (Given - Provider: Johanna Newton RN) 5 mg, Oral, DAILY, First dose on Fri08/08/22 at 1445, Until Disc ontinued buPROPion (WELLBUTRIN XL) XL 24 hour release tablet 30 0 mg 0853 (Given - Provider: Johanna Newton RN) 0852 (Given - Provider: Johanna Newton RN) 0819 (Given - Provider: Johanna Newton RN) 300 mg, Oral, DAILY, First dose on Fri at 0900, Until Discontinued, Tablet should be swallowed whole. Caution: Look alike, sound-alike medication lidocaine (ASPERCREAM) 4 % patch 1 Patch 901 (Patch A pplied - Provider: Johanna Newton RN)2051 (Patch Removed - Provider: Belia Cottrell, YENNIFER) 0852 (Patch Applied - Provider: Johanna Newton RN)2049 (Patch Removed - Provider: Belia Cottrell RN) 08 (Patch Applied - Provider: Johanna Newton RN)2018 (Due: Patch Removed - Provider: Johanna Newton RN) 1 Patch, Transdermal, DAILY, First dose on Fri08/07/22 at 0900, Until Discontinued, Cut in half and apply both halves to left knee. Patch may remain in place for up to 12 hours in any 24 hour period, i. e. patches placed at 0800 should be sesar mariam at 2000. May cut patch to appropriate size. polyethylene glycol (MIRALAX) oral powder 17 g 0852 (N ot Given - Provider: Johanna Newton RN - Reason: Other (Enter Reason in Comment Area) - Comment: patient had a large, incontinent BM, loose) 0854 (Given - Provider: Johanna Newton RN) 0819 (Not Given - Provider: Johanna Newton RN - Reason: Patient/family refused) 17 g, Oral, DAILY, First dose on 10/27 at 1145, Until Discontinued, Do not add to pre-thickened juices. Ok to add to liquid thickened with Thicken-Up. QUEtiapine (SEROquel) tablet 125 mg 2050 (Given - Provider: Belia Cottrell, YENNIFER) 2049 (Given - Provider: Belia Cottrell, YENNIFER) 125 mg, Oral, HS, First dose on Fri08/03/22 at 2300, Until Disc ontinued rivaroxaban (XARELTO) tablet 20 mg 1725 (Given - Provider: Wilfrido Newton RN) 1706 (Given - Provider: Johanna Newton RN) 20 mg, Oral, EVENING CML, First dose (af ter last modification) on 08/04/22 at 1700, Until Discontinued, Take with food venlafaxine (EFFEXORXR) extended release capsule 112.5 mg 0736 (Given - Provider: Johanna Newton RN) 0745 (Given - Provider: Johanna Newton RN) 0820 (Given - Provider: Johanna Newton RN) 112.5 mg, Oral, QDAY WITH MEAL, First do se on 08/04/22 at 0800, Until Discontinued, Capsule should be swallowed whole PRN Medication Order 08/07/2022 08/08/2022 08/09/2022 benzocaine-menthol (CEPACOL) lozenge 1 Lozenge 1 Lozenge, Oral, Q2H PRN, Throat Pain, S tarting on 08/05/22 at 2021, Until Fri08/09/22 at 1226 calcium carbonate (TUMS) chewable tablet 1,000 mg 1,000 mg, Oral, Q4H PRN, Heartburn, Star ting on 08/04/22 at 203, Until Fri08/09/22 at 1226, Each tablet provides 200 mg elemental calcium hydrOXYzine pamoate (VISTARIL) capsule 25 mg 0202 (Giv en - Provider: Ping Oneill RN) 25 mg, Oral, Q6H PRN, Pain, Starting on 08/03/22 at 2157, Until Fri08/09/22 at 1226 melatonin tablet 6 mg 6 mg, Oral, HS PRN, Sedation, Sleep, Sta rting on 08/03/22 at 2157, Until Fri08/09/22 at 1226, As needed for sleep metoclopramide (REGLAN) injection 5 mg 5 mg, Intravenous, Q6H PRN, Nausea, Vomi ting, Starting on 08/03/22 at 2157, Until Fri08/09/22 at 1226, This medication is the third choice for control of nausea/vomiting. If ineffective, causing adv erse effects, or patient preference, con tact provider. If no IV access or when patient able to tolerate PO switch from IV to PO. 1st line - ondansetron, 2nd line - prochlorperazine, 3rd line - metoclopr amide Use 5 mg for patients greater than 65 years or less than 50 kg. Otherwise use 10 mg. metoclopramide (REGLAN) tablet 5 mg 5 mg, Oral, Q6H PRN, Nausea, Vomiting, S tarting on 08/03/22 at 2157, Until Fri08/09/22 at 1226, This medication is the third choice for control of nausea/vomiting. If ineffective, causing adverse ef fects, or patient preference, contact pr ovider. If no IV access or when patient able to tolerate PO switch from IV to PO. 1st line - ondansetron, 2nd line - prochlorperazine, 3rd line - metoclopramide U se 5 mg for patients greater than 65 yea rs or less than 50 kg. Otherwise use 10 mg. naloxone (NARCAN) injection 0.1 mg 0.1 mg, Intravenous, PRN, Opioid Reversa l, Parameters, RR <, Starting on 08/03/22 at 2154, Until Fri08/09/22 at 1226, PRN respiratory rate less than 8/min or patient is difficult to arouse. -Noti fy provider STAT -Give 0.1 mg every 1 mi nute until patient is responsive to physical stimulation and is able to take deep breaths. - Continue to closely monitor. - Hold all IV opioids/narcotics/MOTOR SCOOTER REPAIRER/s until provider is notified. ondansetron (ZOFRAN) injection 4 mg 4 mg, Intravenous, Q8H PRN, Nausea, Vomi ting, Starting on 08/03/22 at 2157, Until Fri08/09/22 at 1226, This medication is the first choice for control of nausea/vomiting. If ineffective, causing adv erse effects or patient preference, cons ider prochlorperazine. If no IV access or when patient able to tolerate PO switch from IV to PO. 1st line - ondansetron, 2nd line - prochlorperazine, 3rd line - metoclopramide ondansetron (ZOFRAN-ODT) disintegrating tablet 4 mg 4 mg, Oral, Q8H PRN, Nausea, Vomiting, S tarting on 08/03/22 at 2157, Until Fri08/09/22 at 1226, This medication is the first choice for control of nausea/vomiting. If ineffective, causing adverse ef fects or patient preference, consider pr ochlorperazine. If no IV access or when patient able to tolerate PO switch from IV to PO. 1st line - ondansetron, 2nd line - prochlorperazine, 3rd line - metoclopramide oxyCODONE (ROXICODONE) immediate release tablet 2.5 mg 0203 (Given - Provider: Ping Oneill, YENNIFER)0900 (Given - Provider: Johanna Newton, RN) 0745 (Given - Provider: Johanna Newton, YENNIFER) 0237 (Given - Provider: Belia Cottrell RN )0821 (Given - Provider: Johanna Newton, YENNIFER) 2.5 mg, Oral, Q6H PRN, Pain, opiate aoid ance pain regimen, breakthrough pain, Starting on 08/03/22 at 2229, Until Fri08/09/22 at 1226 polyethylene glycol (MIRALAX) oral powder 17 g 17 g, Oral, BID PRN, Constipation, Start ing on 08/04/22 at 1158, Until Fri08/09/22 at 1226, Do not add to pre-thickened juices. Ok to add to liquid thickened with Thicken-Up. prochlorperazine (COMPAZINE) injection 5 mg 5 mg, Intravenous, Q6H PRN, Nausea, Vomi ting, Starting on 08/03/22 at 2157, Until Fri08/09/22 at 1226, This medication is the second choice for control of nausea/vomiting. If ineffective, causing ad verse effects, or patient preference, co nsider metoclopramide. If no IV access or when patient able to tolerate PO switch from IV to PO. 1st line - ondansetron, 2nd line - prochlorperazine, 3rd line - m etoclopramide Use 5 mg [address] patients grea ter than 65 years or less than 50 kg. Otherwise use 10 mg. senna (SENOKOT) tablet 2 Tablet 2 Tablet, Oral, BID PRN, Constipation, S tarting on 08/04/22 at 1158, Until Fri08/09/22 at 1226, as laxative/stimulant agent documented in this encounter Care Teams Tile Grinder Relationship Specialty Start Date End Date Tracee Batres PCP - General 01/07/11 documented as of this encounter
--- OUTSIDE RECORDS SUMMARY | 2022-09-09 19:50 | XMS_ITS | Encounter Summary ---
:1945 Author Organization [facility] Address [address] [place] [address] Care Team Providers Name Role Phone Unassigned, Provider Primary Care Provider Unavailable Encounter Details Date Type Department Care Team Description 07/26/2001 Orders Only Epic, [place] [address] Social History Tobacco Use Types Packs/Day Years [...] Not on filedocumented as of this encounter Visit Diagnoses Not on filedocumented in this encounter Care Teams Winderman Relationship Specialty Start Date End Date Unassigned, Provider PCP - General 04/29/01 01/06/[address] [place] [id number] documented as of this encounter
--- OUTSIDE RECORDS SUMMARY | 2022-09-09 19:50 | XMS_ITS | Encounter Summary ---
:1945 Author Organization [facility] Address [address], [place] [address] Care Team Providers Name Role Phone Tracee Batres Primary Care Provider Unavailable Encounter Details Date Type Department Care Team Description 10/06/1989 PN Conversion Only TEACHER BALLET 38[address] Tracee Batres [address] [place] [address] Social History Tobacco Use Types Packs/Day Years [...] on filedocumented in this encounter Care Teams Medical Device Sales Consultant Relationship Specialty Start Date End Date Tracee Batres PCP - General 01/07/11 documented as of this encounter
== END 2022-08-02 22:33 | disposition home or self-care (01) ==
LOC: AMB 09-09 19:48
PROVIDERS: PCP Family Medicine; Visit Provider Family Medicine
DX: R53.1 Weakness (principal)
CPT/HCPCS: A0998

== ENCOUNTER 2022-08-03 13:48 | Emergency (ER) | payer OTHER, SELFPAY ==
[2022-08-03] VITALS (7 sets, daily range): BP systolic 138–158; BP diastolic 81–99; PULSE 80–92; RESP 16–18; TEMP 36.3; O2SAT 91–94; BMI 29.0
--- NOTE | 2022-08-03 14:10 | CRLHL7_ITS ---
For Patients: As a result of the Cures Act, medical imaging exams and procedure reports are released immediately into your electronic medical record. You may view this report before your referring provider. If you have questions, please contact your health care provider. INDICATION: Fall and left knee pain. TECHNIQUE: Three views of the left knee. FINDINGS: There is a left TKA. Components appear well seated. No fracture or dislocation. Laceration over the patella best seen on the patellar view. No radiopaque foreign body identified. Dictated by Geoff Grewal MD @ 08/03/2022 3:17:01 PM Dictated by: Geoff Grewal MD @ 08/03/2022 15:17:15 (Electronically Signed)
--- NOTE | 2022-08-03 14:11 | ED.LOWEXIN ---
HPI - Extremity Injury (Lower) General Chief Complaint: Extremity Pain/Injury, Lower Stated Complaint: Knee Pain Time Seen by Provider: 08/03/22 14:05 History of Present Illness HPI Narrative: This 77-year-old female comes in with left knee pain. She had this knee replaced 19 days ago and has been undergoing physical therapy and normal recovery. Yesterday she fell backwards and now complains of worsening pain in her left knee. She does ambulate with a walker and states that she was able to get up and ambulate after this fall with the assistance of walker. She does not report any other injury. She did not hit her head or have loss of consciousness. Related Data Home Medications Medication Instructions Recorded Confirmed acetaminophen 650 mg 650 mg PO Q8H PRN 04/08/22 07/25/22 tablet,extended release betamethasone valerate 0.1 % 1 applic topical DAILY 04/08/22 07/25/22 topical ointment bupropion HCl 300 mg 24 hr tablet, 300 mg PO DAILY 04/08/22 07/25/22 extended release diclofenac sodium 1 % topical gel 4 g topical QID 04/08/22 07/25/22 fluticasone propionate 50 2 spray intranasal DAILY 04/08/22 07/25/22 mcg/actuation nasal spray,suspension quetiapine 100 mg tablet 100 mg PO HS 04/08/22 07/25/22 quetiapine 25 mg tablet 25 mg PO HS 04/08/22 07/25/22 sumatriptan succinate 100 mg tablet 100 mg PO Q2H PRN 04/08/22 07/25/22 venlafaxine 75 mg capsule,extended 75 mg PO DAILY 04/08/22 07/25/22 release 24 hr rivaroxaban 15 mg tablet (Xarelto) 20 mg PO DIRECTED 04/26/22 07/25/22 venlafaxine 37.5 mg 37.5 mg PO DAILY 07/15/22 07/25/22 capsule,extended release 24 hr Previous Rx's Medication Instructions Recorded sennosides 8.6 mg-docusate sodium 1 - 4 tab-cap PO BID PRN 07/16/22 50 mg tablet (Senna-S) constipation #60 tabs oxycodone 5 mg tablet 5 mg PO Q4-8H PRN pain #30 tabs 07/29/22 oxycodone 5 mg tablet 2.5 - 5 mg PO Q4-8H PRN pain #20 07/30/22 tabs Allergies Allergy/AdvReac Type Severity Reaction Status Date / Time Penicillins Allergy Intermediate Rash Verified 08/03/22 14:03 erythromycin base Allergy Mild RASH Verified 08/03/22 14:03 hylan G-F 20 [From ERCOM] Allergy Verified 08/03/22 14:03 Review of Systems Status of ROS: Reports: 10 or more systems reviewed and unremarkable except as noted in History and below Narrative: Constitutional: No fevers, no weight gain or loss. Eyes: No discharge. No vision changes. HENT: No congestion, no sore throat, no ear pain. Cardiovascular: No chest pain, no palpitations. Respiratory: No shortness of breath, no wheezes, no cough. Gastrointestinal: No abdominal pain, no vomiting, no diarrhea. Genitourinary: No dysuria, no hematuria. Musculoskeletal: Left knee pain. Recent left total knee surgery. Skin: No rashes, no pruritis. Neurological: No dizziness, weakness, sensory change, speech change. Endo/Heme/Allergies: No bruising or bleeding. No polydipsia. Pysch: no suicidality, no anxiety, no insomnia. All other systems reviewed and are negative. [facility] Medical History Allergic rhinitis Chronic anticoagulation CKD (chronic kidney disease) Generalized anxiety disorder History of pulmonary embolism (04/08/22) Iron deficiency anemia, unspecified Lichenification and lichen simplex chronicus Personal history of colonic polyps Pulmonary nodule Seasonal affective disorder Surgical History History of bladder surgery Social History Smoking Status: Never smoker Do you use any of these nicotine containing products: None Second hand tobacco smoke exposure: No How often do you have a drink containing alcohol: never How often do you have six or more drinks on one occasion: Never AUDIT-C Alcohol total score: 0 Non-prescribed substance use: denies use Caffeine: No Are you using contraception or practicing any form of control: No service: No Exam Narrative: Exam Narrative: Constitutional: Well-developed, well-nourished, no acute distress. HEENT: Normocephalic, atraumatic. Neck: Normal range of motion. Nontender. Supple. Heart: Regular. No murmurs. Normal rate. Intact distal pulses. Lungs: Clear to auscultation. No chest discomfort. No wheezes, rhonchi, or rales. Abdomen: Normal bowel sounds. Nontender. No rebound tenderness. Genitalia: Deferred. Back: No midline tenderness. Normal range of motion. Extremities: Surgical wound of the left knee appears to be healing properly. There is small amount of effusion. Decreased range of motion of the left knee related to recent surgery. Skin: Intact. No rash. Warm. No erythema or pallor. Neurologic: No altered sensation. No weakness. Alert and oriented. Psychiatric: No suicidality. No anxiety or depression. No insomnia. Nursing notes and vitals signs are reviewed. Const: Vital Signs, click to edit/add: Vital Signs - 24 hr 08/03/22 13:56 08/03/22 15:00 08/03/22 16:00 Temperature 97.3 F L Pulse Rate [Right Pulse Oximeter] 92 90 84 Respiratory Rate 16 16 16 Blood Pressure [Ri ght Upper Arm] 143/90 H 144/84 H 149/81 H Pulse Oximetry 94 93 91 Oxygen Delivery Me thod Room Air Room Air Nasal Cannula 08/03/22 17:00 08/03/22 17:30 08/03/22 18:30 Temperature Pulse Rate [Right Pulse Oximeter] 80 82 80 Respiratory Rate 18 16 16 Blood Pressure [Ri ght Upper Arm] 151/86 H 158/99 H 148/96 H Pulse Oximetry 93 94 94 Oxygen Delivery Me thod Nasal Cannula Nasal Cannula Nasal Cannula 08/03/22 19:00 Temperature Pulse Rate [Right Pulse Oximeter] 80 Respiratory Rate 16 Blood Pressure [Ri ght Upper Arm] 138/91 H Pulse Oximetry 94 Oxygen Delivery Me thod Nasal Cannula Course Vital Signs Vital signs: Initial Vital Signs Temperature 97.3 F L 08/03/22 13:56 Temperature Source Temporal Artery Scan 08/03/22 13:56 Pulse Rate 92 08/03/22 13:56 Respiratory Rate 16 08/03/22 13:56 Blood Pressure 143/90 H 08/03/22 13:56 Blood Pressure Mean 107 08/03/22 13:56 Blood Pressure Position Supine 08/03/22 13:56 Pulse Oximetry 94 08/03/22 13:56 Oxygen Delivery Method 08/03/22 13:56 Vital Signs Temperature 97.3 F L 08/03/22 13:56 Pulse Rate 92 08/03/22 13:56 Respiratory Rate 16 08/03/22 13:56 Blood Pressure 143/90 H 08/03/22 13:56 Pulse Oximetry 94 08/03/22 13:56 Oxygen Delivery Method 08/03/22 13:56 Temperature 97.3 F L 08/03/22 13:56 Pulse Rate 80 08/03/22 19:00 Respiratory Rate 16 08/03/22 19:00 Blood Pressure 138/91 H 08/03/22 19:00 Pulse Oximetry 94 08/03/22 19:00 Oxygen Delivery Method 08/03/22 19:00 MDM - Extremity Injury (Lower) MDM Narrative Medical decision making narrative: This patient comes in with her . She comes in by ambulance because of pain in her left knee. She had her knee replaced about 3 weeks ago and has become more deconditioned since then. She has a pre-existing ataxia that has predisposed her to fall and now she is very anxious about ambulating. Her states that he cannot handle these matters at home any longer. He states that his back is getting sore because he has attempting to hold her up when she does anything at home. X-ray imaging of her left knee shows no acute findings. Currently there are no beds available anywhere in the state. And currently we have 6 patient's boarding in the ER awaiting admission her placement elsewhere. I explained to the patient and her that even if there was a hospital bed available it would be an observation admission with the plan for care home placement for rehab as soon as possible. I also explained that Medicare does not cover these expenses in there can be a significant financial burden for this kind of care. Meanwhile there was ongoing attempt to find hospital bed available for transfer. I did speak with Dr. Juan Jimenez with [facility] at [place], [place]. They do have a bed available there and will except her. I did explain to the patient and her that this is at least 2-1/2 hours away and nursing facility will likely be arranged in that vicinity. They are agreeable to this plan. Imaging Data XR L Knee: Radiologist's impression: There is a left TKA. Components appear well seated. No fracture or dislocation. Laceration over the patella best seen on the patellar view. No radiopaque foreign body identified. Discharge Plan Discharge Clinical Impression: Ataxia, Weakness, Knee pain Patient Disposition: Xfer Other Condition: Unchanged Prescriptions: No Action Xarelto 15 mg tablet 20 mg PO DIRECTED Label Comments: TAKE ONE TABLET BY MOUTH TWICE DAILY FOR 21 DAYS THEN USE THE 20 MG TABLET quetiapine 25 mg tablet 25 mg PO HS Label Comments: taking total of 125 betamethasone valerate 0.1 % ointment 1 applic TOPICAL DAILY venlafaxine 75 mg capsule,extended release 24hr 75 mg PO DAILY Rx Instructions: TAKES ALONG WITH 37.5 MG ER CAPSULE sumatriptan succinate 100 mg tablet 100 mg PO Q2H PRN quetiapine 100 mg tablet 100 mg PO HS fluticasone propionate 50 mcg/actuation spray,suspension 2 spray INTRANASAL DAILY bupropion HCl 300 mg tablet extended release 24 hr 300 mg PO DAILY diclofenac sodium 1 % gel 4 g TOPICAL QID acetaminophen 650 mg tablet extended release 650 mg PO Q8H PRN venlafaxine 37.5 mg capsule,extended release 24hr 37.5 mg PO DAILY sennosides-docusate sodium [Senna-S] 8.6-50 mg tablet 1 - 4 tab-cap PO BID PRN (Reason: constipation) Qty: 60 0RF Rx Instructions: Hold medication if experiencing loose stools. oxycodone 5 mg tablet 5 mg PO Q4-8H PRN (Reason: pain) Qty: 30 0RF oxycodone 5 mg tablet 2.5 - 5 mg PO Q4-8H MDD 6 PRN (Reason: pain) Qty: 20 0RF Rx Instructions: Take as needed for postop pain: 2.5mg mild pain, 5mg moderate-severe pain; wean as tolerated. Follow Up/Referrals: Ana Aguilar DO [Primary Care Provider] - Stand Alone Forms: [facility] Info Instructions
--- OUTSIDE RECORDS SUMMARY | 2022-08-03 14:20 | XMS_ITS ---
:1945 Author Care Team Providers Name Role Phone [facility] Primary Care Provider [phone] Allergies Code Code System Name Reaction [...] - IMPLANT NEUROELECT RODES 06/21/2019 Cystometrogram W/vp of digital marketing&up Information not a vailable Notes: 06/21/2019 - [...] lable Notes: Stool blood test (FOBT) 10/10/2014 Unlisted Px Foot/toes Information not av ailable Notes: 10/10/2014 - FOOT/TOES SURGERY PROCEDURE 04/15/2014 Us Urine Capacity Measure Information no t available Notes: 04/15/2014 - US URINE CAPACITY MEASURE 03/14/2014 Cystometrogram W/vp of digital marketing&up Information not a vailable Notes: 03/14/2014 - [...] - ELECTRO-UROFLOWMET RY FIRST 04/03/2011 Esophagoscopy Flexible [place] Information not available Notes: 04/03/2011 - ESOPHAGOSCOPY [...] stimul, Implant neuroelectrodes, Implant neuroelectrodes, Cystometrogram w/vp of digital marketing&up, Electro-uroflowmetry first, Intraabdominal pressure test, Anal/urinary m uscle study, Cystometrogram w/vp of digital marketing&up, Int raabdominal pressure test, Anal/urinary muscle study, [...] HN - Patient indicated: Cystometrogram w /vp of digital marketing&up, Electro-uroflowmetry first, Intraabdominal pressure test, Anal/urinary muscle study, Cystometrogram w/vp of digital marketing&up, Intraabdominal pressure test, Anal/ur inary muscle study and Electro-uroflowme try first are not accurate. Results Lab Results None recorded. Past Encounters 10/04/2021 Overactive Bladder; Urge Incontinence of Urine Carine Mcdaniel MD: [address] [address], Ph. 10/04/2021 Overactive Bladder Carine Mcdaniel MD: [address], [address] [address], Ph. 08/29/2021 Overactive Bladder Carine Mcdaniel MD: [address] [facility] [address], [place] [address], Ph. 07/20/2021 Overactive Bladder; Urge Incontinence of Urine; Incomplete Emptying of Bladder Carine Mcdaniel MD: [address], [address] [place] [phone], Ph. 06/08/2021 Overactive Bladder; Urge Incontinence of Urine; Incomplete Emptying of Bladder Carine Mcdaniel MD: [address] [place], [address] [address], Ph. Social History Tobacco Smoking Status Never [...]
[2022-08-03] MEDS: MORPHINE 10 MG/ML inj IM (14:21)
--- OUTSIDE RECORDS SUMMARY | 2022-08-03 14:21 | XMS_ITS | Clinical Summary ---
:1945 Author Organization [facility] [place] [address] Care Team Providers Name Role Phone Carine Mcdaniel MD Unavailable Yesenia Almaraz MD Unavailable [phone] Ruth Royal [facility] Unavailable Unavailable Abebe Donald MD Unavailable Ana Aguilar DO Primary Care Provider [facility] Care, Tony Unavailable [phone] Allergies Active Allergy Reactions Severity Noted [...] Discontinued (ARTHRITIS PAIN mouth one time 6 (*Error/Order RELIEF) 650 mg for 1 dose. Max entry error) Extended-Release acetaminophen tablet dose: 4000mg in 24 hrs. Take one tablet every 6-8 hrs as needed. QUEtiapine Take 1 Tablet (25 90 Tablet [...] agreement signed 06/26/2017 Overview: 06/27/16 signed Ruth Royal, ALL PURPOSE CLERK-BC , STAFF NURSE MIDWIFE psychiatry/hc Tear of left acetabular labrum 09/13/2015 Primary osteoarthritis of left hip 08/02/2015 Overview: S/P ultrasound-guided left hip joint inj ection by Dr. Barnes 2016 with minimal to no benefit. Pain medication [...] 04/02/2018 Depression, major, recurrent, in partial remission 7 07/01/2017 Recurrent major depression in remission 10/28/2010 03/19/2016 Major Depression, Recurrent rule out bipolar II affective 10/28/2010 disorder Encounters Date Type Specialty Care Team Description 08/02/2022 Home Care Visit Natty Arredondo DIRECTOR INTERNAL CONTROL - HOME VISIT 08/02/2022 Home Care Visit Ricardo Rojas, PT - HO ME VISIT PT 08/02/2022 Travel 07/31/2022 Orders Only Emmy العلي <No scans attached> MD [place] 07/30/2022 Home Care Visit Ricardo Rojas, PT - HO ME VISIT PT 07/30/2022 Home Care Visit Natty Arredondo [facility] - HOME VISIT 07/30/2022 Travel 07/29/2022 Home Care Visit Heath Hernandez OT - IN ITIAL ASSESSMENT OT 07/29/2022 Office Visit Ana Aguilar Knee Pain/pr oblem (Face to Shawna, DO Face) 07/29/2022 Telephone Germania Saavedra Late Can el Appointment MANAGER ATHLETICS (Cancellation ) 07/29/2022 Travel 07/26/2022 Home Care Visit Ricardo Rojas, [facility] - M ISSED VISIT PT 07/25/2022 Home Care Visit Ricardo Rojas, PT - OA SIS START OF CARE PT 07/25/2022 Nurse Triage HyacinthGracy, RN Home Car e 07/25/2022 Telephone Ricardo Rojas, Home Care PT 07/25/2022 Travel 07/24/2022 Telephone Cristiana Combs [facility] (Ref erral Navigation ) 07/23/2022 Telephone Ana Aguilar Outside Orde r (HOME CARE ) Shawna, DO 07/22/2022 Telemedicine Emmy العلي Error-plea se disregard (appmontana Orourke MD cancellation) 07/22/2022 Travel 07/22/2022 Telephone Ana Aguilar Need Meds Shawna, DO 07/15/2022 Orders Only Scanner <No scans attac hed> 07/10/2022 Office Visit Germania Saavedra, Mental He alth Intake MANAGER ATHLETICS 07/10/2022 Travel 07/09/2022 Orders Only Ana Aguilar <No scans at tached> Shawna, DO 07/08/2022 Travel 07/04/2022 Orders Only Lab, [facility] 07/04/2022 Travel 07/03/2022 Telephone Ana Aguilar Abnormal Lab Results (High Shawna, DO potassium needs to be re-drawn per Dr Abbie Pollard) 07/02/2022 Preop Visit Ana Aguilar Pre-Op Exam (07/15/22 Dr. 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 Obstetrics History Para Term AB IAB SAB Ectopic Multiple Living Live Births 3 3 3 Date Outcome GA Total Labor/2nd/3rd Weight Sex Delivery Anes PTL Ashley A 1 A5 Name Clin Labor Para Para Para Last Filed Vital Signs Vital Sign Reading Time Taken Comments Blood Pressure 124/66 08/02/2022 10:02 AM CDT Pulse 98 08/02/2022 10:02 AM CDT Temperature 36.3 ??C (97.4 ??F) 08/02/2022 10:02 AM CDT Respiratory Rate 16 08/02/2022 10:02 AM CDT Oxygen Saturation 99% 08/02/2022 10:02 AM CDT Inhaled Oxygen Concentration - - Weight 82.2 kg (181 lb 4.8 oz) 07/02/2022 10:55 AM CDT Height 163 cm (5' 4.17) 07/02/2022 10:55 AM CDT Body Mass Index 30.95 07/02/2022 10:55 AM CDT Plan of Treatment Upcoming Encounters Date Type Specialty Care Team Description 08/06/2022 Home Care Visit Heath Hernandez , OT [address] [place], [place] [address] (Wo rk) 08/06/2022 Home Care Visit Ricardo Rojas , PT [address] [place] [address] (Wo rk) 08/08/2022 Home Care Visit Heath Hernandez , OT [address] [place], [place] [address] (Wo rk) 08/08/2022 Home Care Visit Natty Arredondo [address] [place], [place] [address] (Wo rk) 08/09/2022 Home Care Visit Ricardo Rojas , PT [address] [place] [address] (Wo rk) 08/13/2022 Home Care Visit Heath Hernandez , OT [address] [place], [place] [address] (Wo rk) 08/13/2022 Home Care Visit Ricardo Rojas , PT [address] [place] [address] (Wo rk) 08/15/2022 Home Care Visit Heath Hernandez , OT [address] [place], [place] [address] (Wo rk) 08/15/2022 Home Care Visit Natty Arredondo [address] [place], [place] [address] (Wo rk) 08/16/2022 Home Care Visit Ricardo Rojas , PT [address] [place] [address] (Wo rk) 08/20/2022 Home Care Visit Ricardo Rojas , PT [address] [place] [address] (Wo rk) 08/21/2022 Home Care Visit Heath Hernandez , OT [address] [place], [place] [address] (Wo rk) 08/23/2022 Appointment Ricardo Rojas , PT [address] [place] [address] (Wo rk) 08/28/2022 Home Care Visit Heath Hernandez , OT [address] [place], [place] [address] (Wo rk) 09/09/2022 Office Visit Zeyad العلي MD [address] [place], [place] [address] (Wo rk) Health Maintenance [...] history exists Medical Devices Implanted Type Area Ethanol Operator Device Shelf Model / Identifier Expiration Serial / Date Lot Stimulator 7.7mm 14cc Interstim Ii - [id number] Right: [employer] Pain 11/19/2022 3058 / Implanted: Qty: 1 on 08/22/2021 by Carine Mcdaniel MD at [facility] Buttock Therapy [id number] / Procedures Procedure Name Priority Date/Time Associated Diagnosis Comme nts SCAN-RADIOLOGY 07/15/2022 12:00 Results f or this REPORT AM CDT procedure are i n the results section. EKG 12 LEAD Routine 07/09/2022 4:28 PM Pre-op exam CDT [place] READING EKG - NO Routine 07/09/2022 4:27 [...] t available. Ana Aguilar DO EKG ORD [place] READING EKG - NO CHARGE, COMP ONLY (07/09/2022 4:27 PM CDT) Ana Aguilar DO PB - PROVIDER READINGS POTASSIUM (07/04/2022 9:43 AM CDT)Only the most recent of2 resultswithin the time period is included. athologist Signature POTASSIUM 4.7 3.5 - 5.0 07/04/2022 [place] mmol/L 12:41 PM CDT [facility] Specimen Anatomical Collection Method / Collection Time Recei mariam Time (Source) Location / Volume Laterality Blood BLOOD SPECIMEN / Venipuncture / 07/04/2022 9:43 2021 9:44 Unknown Unknown AM CDT AM CDT Ana Aguilar DO CHEMISTRY Performing Organization Address City/State/ZIP Code Phon e Number [facility] [address] [place] [address] HEMOGLOBIN (07/02/2022 12:32 PM CDT) athologist Signature HEMOGLOBIN 14.9 12.0 - 16.0 07/02/2022 [facility] g/dL 12:42 PM CDT [facility] MCV 97 80 - 100 fL 07/02/2022 [facility] 12:42 PM CDT [facility] Specimen Anatomical Collection Method / Collection Time Recei mariam Time (Source) Location / Volume Laterality Blood BLOOD SPECIMEN / Venipuncture / 07/02/2022 12:32 07/02 Unknown Unknown PM CDT 12:35 PM CDT Ana Aguilar DO HEMATOLOGY Performing Organization Address City/State/ZIP Code Phon e Number [facility] [address] [place] [address] (ABNORMAL) CREATININE (07/02/2022 12:32 PM CDT) athologist Signature CREATININE 1.07 0.57 - 1.11 07/03/2022 [facility] mg/dL 7:24 AM CDT [facility] eGFR 53 (L) >90 07/03/2022 [facility] mL/min/1.73 7:24 AM CDT LABORATORY-CENT m2 [...] Organization Address City/State/ZIP Code Phon e Number [employer] [address] 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 Explanati on Healthcare Directive 09/28/2014 11:36 AM [facility], 11/19 Latest Code Status on File Code Status Date Activated Date Inactivated Comments Full Code 08/22/2021 9:50 AM 08/22/2021 3:30 PM Code Status Discussion: Unable to Assess Preferences, Provid er to review later Full Code 11/23/2018 8:52 PM 12/02/2018 4:52 PM Care Teams Principal Technical Writer Relationship Specialty Start Date End Date Ana Aguilar, PCP - General Family Practice 11/08/19 [address] [place] [address] Carine Mcdaniel, Surgery - Urology 12/30/14 [address] [place] [address] Yesenia Almaraz Dermatology 01/03/16 MD Larry [address] [place], [place] [phone] Ruth Royal, STAFF NURSE MIDWIFE Psychiatry Clinical Nurse Specialist 02/05 Abebe Donald MD Family Practice Family Practice 06/11/19 [address] [place] [address] [facility], 07/23/22 Tony [address] [facility] [place] [address]
--- NOTE | 2022-08-03 16:54 | ED.NURSE ---
attempted to get up out of the bed and patient was dizzy and unsuccessfull. 3 attempts with all the same results. updated the MD
[2022-08-03 19:50] LABS: SARS Antigen* negative (Negative)
--- NOTE | 2022-08-03 19:57 | ED.NURSE ---
Pt accepted by Dr. Jimenez from [facility]. Pt leaving with [facility].
--- NOTE | 2022-08-03 20:06 | ED.NURSE ---
n2n given to RN at accepting facility.
== END 2022-08-03 19:58 | disposition other institution (70) ==
PROVIDERS: Emergency Provider Emergency Medicine Emergency Medical Services; PCP Family Medicine
DX: M25.562 Pain in left knee (principal); R27.0 Ataxia, unspecified
CPT/HCPCS: 73562; 87426; 96372; 99284; 99285; A0425; A0427; J2270

== ENCOUNTER 2022-08-03 19:53 | Outpatient (CLI) | payer OTHER, SELFPAY ==
--- OUTSIDE RECORDS SUMMARY | 2022-09-09 20:26 | XMS_ITS | Encounter Summary ---
:1945 Author Organization [facility] Address [address] [address] Care Team Providers Name Role Phone Tracee Batres Primary Care Provider Unavailable Encounter Details Date Type Department Care Team Description 08/13/2022 Orders Only HIM DEPARTMENT Provider, Lakeshia junior [place] [address] Social History Tobacco Use Types Packs/Day Years [...] on filedocumented in this encounter Care Teams Still Runner Relationship Specialty Start Date End Date Tracee Batres PCP - General 01/07/11 documented as of this encounter
--- OUTSIDE RECORDS SUMMARY | 2022-09-09 20:26 | XMS_ITS | Encounter Summary ---
:1945 Author Organization [facility] Address [address] [place] [address] Care Team Providers Name Role Phone Unassigned, Provider Primary Care Provider Unavailable Encounter Details Date Type Department Care Team Description 07/26/2001 Orders Only Epic, [place] [address] Social History Tobacco Use Types Packs/Day Years [...] on filedocumented in this encounter Care Teams Document Control Supervisor Relationship Specialty Start Date End Date Unassigned, Provider PCP - General 04/29/01 01/06/[address] [place] [address] documented as of this encounter
--- OUTSIDE RECORDS SUMMARY | 2022-09-09 20:26 | XMS_ITS | Clinical Summary ---
:1945 Author Organization [facility] [place] [address] Care Team Providers Name Role Phone Carine Mcdaniel MD Unavailable Yesenia Almaraz MD Unavailable [phone] Ruth Royal [facility] Unavailable Unavailable Abebe Donald MD Unavailable Ana Aguilar DO Primary Care Provider [facility] Care, Tony Unavailable [phone] Allergies Active Allergy Reactions Severity Noted [...] signed 06/26/2017 Overview: 06/27/16 signed Ruth Royal, SALES AND CUSTOMER RELATIONS REP-BC , BRUSH OPERATOR psychiatry/hc Tear of left acetabular labrum [...] VISIT 08/08/2022 Home Care Visit Natty Arredondo BREAKER TABLE WORKER - MISSED VISIT 08/08/2022 Home Care Visit Natty Arredondo BREAKER TABLE WORKER - MISSED VISIT 08/06/2022 Home Care Visit [...] hed> 08/02/2022 Home Care Visit Natty Arredondo BREAKER TABLE WORKER - HOME VISIT 08/02/2022 Home Care Visit Ricardo Rojas, PT PT - HOME VISIT 08/02/2022 Travel 07/31/2022 Orders Only Emmy العلي <No scans attached> MD [place] 07/30/2022 Home Care Visit Ricardo Rojas, PT PT - HOME VISIT 07/30/2022 Home Care Visit Natty Arredondo BREAKER TABLE WORKER - HOME VISIT 07/30/2022 Travel 07/29/2022 Home Care Visit Heath Hernandez, OT OT - INITIAL ASSESSMENT 07/29/2022 Office Visit Ana Aguilar Knee Pa in/problem (Face to DO Face) 07/29/2022 Telephone Germania Saavedra Late [facility] el Appointment ENVIRONMENTAL HEALTH OFFICER (Cancellation ) 07/29/2022 Travel 07/26/2022 Home Care Visit Ricardo Rojas, PT BREAKER TABLE WORKER - MISSED VISIT 07/25/2022 Home Care Visit [...] Visit Germania Saavedra, Mental He alth Intake ENVIRONMENTAL HEALTH OFFICER 07/10/2022 Travel 07/09/2022 Orders Only Ana Aguilar, <No sca ns attached> DO 07/08/2022 Travel 07/04/2022 Orders Only Lab, [facility] 07/04/2022 Travel 07/03/2022 Telephone Ana Aguilar, Abnorma l Lab Results (High DO potassium needs to be re-drawn per Dr Abbie Pollard) 07/02/2022 Preop Visit Ana Aguilar, Pre-Op Exam (07/15/22 Dr. 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 Obstetrics History Para Term AB IAB SAB Ectopic Multiple Living Live Births 3 3 3 Date Outcome GA Total Labor/2nd/3rd Weight Sex Delivery Anes PTL Ashley A 1 A5 Name Clin Labor Para Para Para Last Filed Vital Signs Vital Sign Reading Time Taken Comments Blood Pressure 138/86 09/09/2022 1:31 PM TOOLING INSPECTOR Pulse 98 09/09/2022 1:31 PM TOOLING INSPECTOR Temperature 36.3 ??C (97.4 ??F) 08/02/2022 10:02 [...] history exists Medical Devices Implanted Type Area Document Management Consultant Device Shelf Model / Identifier Expiration Serial / Date Lot Stimulator 7.7mm 14cc Interstim Ii - [id number] Right: Medtronic Pain 11/19/2022 [id number] / Implanted: Qty: 1 on 08/22/2021 by Carine Mcdaniel MD at [facility] Buttock Therapy [id number] / Procedures Procedure Name Priority Date/Time Associated [...] Routine 07/09/2022 4:28 PM Pre-op exam CDT CA READING EKG - NO Routine 07/09/2022 4:27 [...] t available. Ana Aguilar DO EKG ORD CA READING EKG - NO CHARGE, COMP ONLY (07/09/2022 4:27 PM CDT) Ana Aguilar DO PB - PROVIDER READINGS POTASSIUM (07/04/2022 9:43 AM CDT)Only the most recent of2 resultswithin the time period is included. athologist Signature POTASSIUM 4.7 3.5 - 5.0 07/04/2022 [place] mmol/L 12:41 PM CDT [facility] Specimen Anatomical Collection Method / Collection Time Recei mariam Time (Source) Location / Volume Laterality Blood BLOOD SPECIMEN / Venipuncture / 07/04/2022 9:43 2021 9:44 Unknown Unknown AM CDT AM CDT Ana Aguilar DO CHEMISTRY Performing Organization Address City/State/ZIP Code Phon e Number [facility] [address] [place] [address] HEMOGLOBIN (07/02/2022 12:32 PM CDT) athologist Signature HEMOGLOBIN 14.9 12.0 - 16.0 07/02/2022 [facility] g/dL 12:42 PM CDT [facility] MCV 97 80 - 100 fL 07/02/2022 [facility] 12:42 PM CDT [facility] Specimen Anatomical Collection Method / Collection Time Recei mariam Time (Source) Location / Volume Laterality Blood BLOOD SPECIMEN / Venipuncture / 07/02/2022 12:32 07/02 Unknown Unknown PM CDT 12:35 PM CDT Ana Aguilar DO HEMATOLOGY Performing Organization Address City/State/ZIP Code Phon e Number [facility] [address] [place] [address] (ABNORMAL) CREATININE (07/02/2022 12:32 PM CDT) athologist Signature CREATININE 1.07 0.57 - 1.11 07/03/2022 [facility] mg/dL 7:24 AM CDT [facility]ATORY[facility] eGFR 53 (L) >90 07/03/2022 [facility] mL/min/1.73 7:24 AM CDT LABORATORY-CENT m2 [...] Organization Address City/State/ZIP Code Phon e Number [facility] [address] [place] [address] LABORATORY-CENTRAL [address] LABORATORY from Last 3 Months Insurance Payer Benefit Plan / Subscriber ID Effective Dates Phone Addre ss Type Group MEDICA MR MEDICA [id number] 2021-Presen MEDICA ADVANTAGE MR t [facility] [address] [address] [place] [phone] MEDICARE PART MEDICARE PART A [id number] 2009-Presen ATTN: CLAIMS A - HB USE HB ONLY t [address] [place] [address] MEDICA PPS HC MEDICA [id number] 2021-Presen MEDICA ADVANTAGE MR t GOVERNMENT PPS PROGRAMS [address] [address] [place] [phone] Advance Directives Documents on File Type Date Recorded Patient Communication Electronic Technician Explanati on Healthcare Directive 09/28/2014 11:36 AM [facility], 11/19 Latest Code Status on File Code Status Date Activated Date Inactivated Comments Full Code 08/22/2021 9:50 AM 08/22/2021 3:30 PM Code Status Discussion: Unable to Assess Preferences, Provid er to review later Full Code 11/23/2018 8:52 PM 12/02/2018 4:52 PM Care Teams Nail Specialist Relationship Specialty Start Date End Date Ana Aguilar, PCP - General Family Practice 11/08/19 [address] [place] [address] Carine Mcdaniel, Surgery - Urology 12/30/[address] [place] [address] Yesenia Almaraz Dermatology 01/03/16 MD Larry [address] [place], [place] [address] Ruth Royal, BRUSH OPERATOR Psychiatry Clinical Nurse Specialist 02/05 Abebe Donald MD Family Practice Family Practice 06/11/19 [address] [place] [address] [facility], 07/23/22 [place] [address] [place] [address]
--- OUTSIDE RECORDS SUMMARY | 2022-09-09 20:26 | XMS_ITS | Encounter Summary ---
:1945 Author Organization [facility] Address [address], [place] [address] Care Team Providers Name Role Phone Tracee Batres Primary Care Provider Unavailable Encounter Details Date Type Department Care Team Description 10/06/1989 PN Conversion Only OB/GYN [address] Tracee Batres [address] [place] [address] Social History Tobacco Use Types Packs/Day Years [...] on filedocumented in this encounter Care Teams Load Blocker Relationship Specialty Start Date End Date Tracee Batres PCP - General 01/07/11 documented as of this encounter
--- OUTSIDE RECORDS SUMMARY | 2022-09-09 20:26 | XMS_ITS | Encounter Summary ---
:1945 Author Organization formerly [facility] Address [address], [place] [address] Care Team Providers Name Role Phone Tracee Batres Primary Care Provider Unavailable Reason for Referral Consult/Transfer Care (Routine) - New Request Specialty Diagnoses / Procedures Referred By Contact Refer red To Contact Diagnoses Status post left knee replacement Acute pain of left knee Kaelyn Geller MD [address] [place] [address] Referral ID Status Reason Start Date Expiration Date Visits V isits Requested Authorized [id number] New Request 08/09/2022 11/06/2022 1 1 Scheduling Instructions Your provider has recommended an appoint ment with an [facility] [place] and Fire Department Marine Engineer. You can quickly make your ap pointment online at [email or web address]. You can als o call [phone] for help scheduling your appointment. We suggest you call your [employer] insurance company about your coverage and benefits for this appointment. Therapies (Routine) Specialty Diagnoses / Procedures Referred By Contact Refer red To Contact [address] [phone] Referral ID Status Reason Start Date Expiration [...] Referred By Contact Refer arsalan To Contact [address] [address] Referral ID Status Reason Start Date Expiration [...] arsalan To Contact Kaelyn Geller MD [address] [place] [address] Referral ID Status Reason Start Date Expiration Date Visits Requ ested Visits Authorized Encounter Details Date Type Department Care Team Description 08/03/2022 - Hospital Encounter [facility] Chester La DO [address] [place] [address] Status post left knee replacement (Prima ry Dx); 08/09/[address] [place] [address] Kaelyn Geller MD [address] [place] [address] Acute pain of left knee; [place] [address] Meet Jimenez MD [address] [place] [address] Falls frequently [phone] Social History Tobacco Use Types Packs/Day Years [...] from the original note were not included. [facility] Discharge Summary Report Admit Date/Time: 08/03/2022 9:50 [...] on Xarelto and insomnia who presented to [facility] after a second fall at home post operative for L TKA on 07/15.She had gone home and fallen, returned for evaluation and sent home again. Fell again. Both times she feels that her Oxycodone meds made her dizzy and fall. In ED [place], evaluated with xray and nofx found. Labs reported to me as stable. Patient and felt she was too weak/at risk for fallsto go home. She waited in ED as boarder there for 29 hours, reached out to [facility] which had a bed to accept. I [...] computer. RN helped read med list from [place] documents. Patient verified her home meds. She [...] respiratory depression from Morphine upon arrival at [facility]. Will try to minimize use. PT OT. Hx of Depression- continue MAIL ROOM CLERK Wellbutrin, Seroquel, venlafaxine CKDIII- Avoid Nephrotoxins. Hx [...] Admit to Skilled Care Comments: [facility] Rehab Potential: Good Potential for D/C From [facility] in 30 Days? Yes Code Status: Full [...] haveany of the following: {IP D/C DANGER SIGNS:[id number]} AttachmentsThe following attachments cannot be sent through Care Everywhere.Knee Pain or Injury (Portuguese)documented in this encounter Medications at Time of [...] Newton RN - 08/09/2022 10:19 AM CDT [facility] Discharge Note - Nursing Admission Date/Time: 08/03/2022 [...] to patient/caregiver at discharge: [facility] Discussed medication risks with patient Patient understands medications usage and side effects Patient understands diagnosis Action Plan for management of symptoms/side effects/complications requiring medical attention established and shared with patient/caregiver Patients general condition on discharge: stable All medical devices (telemetry/IV/etc) unless otherwise ordered, have been removed and stored: Yes --- End of Report --- Sandhya Sommer PTA - 08/09/2022 10:05 AM CDT [facility] Physical Therapy Discharge Summary Patient: Melanie Frederick Date: 08/09/2022 Date of : 1945 Assessment: Patient progressing slowly. Met only 1/4 goals during hospital stay. Reason for Discharge: Patient transferred to [facility] for continued rehab. Discharge Plan: Continued rehab at alf. Goals: Bed Mobility Patient will transfer to/from [...] goal not addressed this session Sandhya Sommer, MAIL ROOM CLERK 08/09/2022, 12:06 PM [employer] WINDING Associated attestation - Geoff Newton, PT - 08/13/2022 8:33 AM SUPERVISOR COIL WINDING Patient status, goals, and plan reviewed, and I am in agreement with the plan of care. Geoff Newton, PT 08/13/2022, 8:32 AM Ping Nesbitt, RN - 08/09/2022 8:35 AM CDT [facility] [place] [place] Discharge Information From Nursing To [facility] Date: 08/09/2022 Patient: Melanie Frederick Diagnosis: No diagnosis found. Self Care Function Primary Language: Portuguese Physical Impairment(s): VISION: wears glasses . WEAKNESS: generalized, very deconditioned. Mental Status:alert, aware of day of week, aware of person, aware of place, and aware of situation Behavior: oriented Communication: can write, talks, understands speaking, understands Portuguese, and reads Self Care Status: needs assist [...] hospital , left TKA on 07/15/22 at [facility] in [place], falling at home. Nursing department/unit phone number: [facility] [phone] 08/09/2022, 8:35 AM Belia Cottrell RN - [...] .Johanna Newton RN 08/08/2022, 4:15 PM Kaelyn Gelelr MD - 08/08/2022 12:24 PM CDT [facility] Medicine Progress Note Patient Name: Melanie Frederick [...] on Xarelto and insomnia who presented to [facility] after a second fall at home post operative for L TKA on 07/15.Transferred to [facility] for bed availability. Current Problems: L knee pain- TKA on 07/15 with two falls since that time. NO fx or acute trauma to knee. Sched Tylenol/Hydroxyzine/lidocaine patch. Min dose Oxy breakthrough. PT and OT. Falls at home- 2 falls, possibly Opiate related. She also had respiratory depression from Morphine upon arrival at [facility]. Will try to minimize use. PT OT. Hx of Depression- continue MAIL ROOM CLERK Wellbutrin, Seroquel, venlafaxine CKDIII- Avoid Nephrotoxins. Hx of PE in April- Taking Xarelto. Continue. HTN - BP consistently elevated > 140 mmHg here. Start amlodipine 5 mg daily. Dispo- Full Code. DOAC for DVT proph. Dispo: [facility] tomorrow Kaelyn Geller MD 08/08/2022 - 12:24 [...] Geller MD - 08/07/2022 3:20 PM CDT [facility] Medicine Progress Note Patient Name: Melanie Frederick [...] on Xarelto and insomnia who presented to [facility] after a second fall at home post operative for L TKA on 07/15.Transferred to [facility] for bed availability. Current Problems: 1- L [...] respiratory depression from Morphine upon arrival at [facility]. I suspect not the best class of meds going forward for patient. PT OT. 3- Hx of Depression- continue MAIL ROOM CLERK Wellbutrin, Seroquel, venlafaxine 4- CKDIII- Avoid Nephrotoxins. 5- Hx of PE in April- Taking Xarelto. Continue. 6- Dispo- Full Code. DOAC for DVT proph. Dispo: TCU hopefully nearer to [place], [place]. Kaelyn Geller MD 08/07/2022 - 3:20 [...] Geller MD - 08/06/2022 12:40 PM CDT [facility] Medicine Progress Note Patient Name: Melanie Frederick [...] on Xarelto and insomnia who presented to [facility] after a second fall at home post operative for L TKA on 07/15.Transferred to [facility] for bed availability. Current Problems: 1- L knee pain- TKA on 07/15 with two falls since that time. NO fx or acute trauma to knee. Sched Tylenol/Hydroxyzine. Min dose Oxy breakthrough. Hold on NSAIDs until confirmation of her labs (reportedas normal) from [place] given her hx of CKDIII. Tramadol second line. PT and OT. Continue to pursue TCU placement while working on therapies here. 2- Falls at home- 2 falls, possibly Opiate related. She also had respiratory depression from Morphine upon arrival at [facility]. I suspect not the best class of meds going forward for patient. PT OT. 3- Hx of Depression- continue MAIL ROOM CLERK Wellbutrin, Seroquel, venlafaxine 4- CKDIII- Avoid Nephrotoxins. 5- Hx of PE in April- Taking Xarelto. Continue. 6- Dispo- Full Code. DOAC for DVT proph. Dispo: TCU hopefully nearer to [place]. Kaelyn Geller MD 08/06/2022 - 12:40 PM Aura Fan RN - 08/06/2022 12:17 PM CDT [facility] Plan of Care Note Assessment: Patient is a pleasant 77 y.o.admitted on 08/03/2022 after a fall. She had left knee surgery at [facility] on 07/15/22. Has had home health visiting [...] Plans to transfer somewhere closer to home ([place]) TCU for further physical therapy. Subjective: [Feeling] [...] La DO - 08/05/2022 9:44 PM CDT [facility] Medicine Progress Note Patient Name: Melanie Frederick [...] on Xarelto and insomnia who presented to [facility] after a second fall at home post operative for L TKA on 07/15.Transferred to [facility] for bed availability. Current Problems: 1- L knee pain- TKA on 07/15 with two falls since that time. NO fx or acute trauma to knee. Sched Tylenol/Hydroxyzine. Min dose Oxy breakthrough. Hold on NSAIDs until confirmation of her labs (reportedas normal) from [place] given her hx of CKDIII. Tramadol second line. PT and IT. May need TCU placement 2- Falls at home- 2 falls, possibly Opiate related. She also had respiratory depression from Morphine upon arrival at [facility]. I suspect not the best class of meds going forward for patient. PT OT. 3- Hx of Depression- continue MAIL ROOM CLERK Wellbutrin, Seroquel, venlafaxine 4- CKDIII- Am provider to review documents and consider repeating BMP if necessary (reported as normal to me). Avoid Nephrotoxins. 5- Hx of PE in April- Taking Xarelto. Continue. 6- Dispo- Full Code. DOAC for DVT proph. Dispo: TCU hopefull nearer to [place], [place]. Chester La DO 08/05/2022 - 9:45 PM Chester La DO - 08/04/2022 4:10 PM CDT [facility] Medicine Progress Note Patient Name: Melanie Frederick [...] on Xarelto and insomnia who presented to [facility] after a second fall at home post operative for L TKA on 07/15.Transferred to [facility] for bed availability. Current Problems: 1- L knee pain- TKA on 07/15 with two falls since that time. NO fx or acute trauma to knee. Sched Tylenol/Hydroxyzine. Min dose Oxy breakthrough. Hold on NSAIDs until confirmation of her labs (reportedas normal) from [place] given her hx of CKDIII. Tramadol second line. PT to see in AM. May need TCU placement 2- Falls at home- 2 falls, possibly Opiate related. She also had respiratory depression from Morphine upon arrival at [facility]. I suspect not the best class of meds going forward for patient. PT to see Andreia. Given her reluctance to walk on knee, likely to need TCU consideration. 3- Hx of Depression- continue MAIL ROOM CLERK Wellbutrin, Seroquel, venlafaxine 4- CKDIII- Am provider to review documents and consider repeating BMP if necessary (reported as normal to me). Avoid Nephrotoxins. 5- Hx of PE in April- Taking Xarelto. Took her dose this AM. Continue. 6- Dispo- Full Code. DOAC for DVT proph. Dispo: PT/TCU likely [place] La DO 08/04/2022 - 4:10 PM iMk Arredondo, PharmD - 08/04/2022 9:42 AM CDT [facility] Pharmacy Medication Reconciliation Note Outpatient Medication History: [...] search and patient interview Primary Pharmacy is: [facility] in [place], [place] Non-Formulary Medications: None Compliance: Fill hx [...] weight on her left foot. Staff of [employer] two assist, gait belt and walker got patient to stand next to bed and pivot to [facility]. Staff literally moved the patient as she would not participate. She was terrified to stand or even move her left leg. Would not put weight on her left foot. While on the [facility] patient brushed her teeth. Patient was incontinent of a large amount of urine and voided maybe 50 mL in the bucket. Handy care performed by OIL HOUSE ATTENDANT. Patient stated she has an inter stem [...] 10:31 PM CDT HOSPITALIST HISTORY AND PHYSICAL [facility] Patient name: Melanie Frederick : 1945 DOA: 08/03/2022 9:50 PM DOS: 08/03/2022 2215 Attending: Meet Jimenez MD - Internal Medicine/Pediatrics [facility] Hospitalist [phone] Chief complaint: L knee pain History of present illness: 77 y.o. female with PMH of L TKA for OA on 07/15, Depression, CDKII, Hx of PE on Xarelto and insomnia who presented to [facility] after a second fall at home post operative for L TKA on 07/15.She had gone home and fallen, returned for evaluation and sent home again. Fell again. Both times she feels that her Oxycodone meds made her dizzy and fall. In ED [place], evaluated with xray and nofx found. Labs reported to me as stable. Patient and felt she was too weak/at risk for fallsto go home. She waited in ED as boarder there for 29 hours, reached out to [facility] which had a bed to accept. I [...] computer. RN helped read med list from [place] documents. Patient verified her home meds. She [...] Reviewed by myself to include- Xrays from [place] of L knee reported to me as normal. ASSESSMENT/PLAN 77 y.o. female with PMH of L TKA for OA on 07/15, Depression, CDKII, Hx of PE on Xarelto and insomnia who presented to [facility] after a second fall at home post operative for L TKA on 07/15.Transferred to [facility] for bed availability. Current Problems: 1- L knee pain- TKA on 07/15 with two Opiate induced falls since that time. NO fx or acute trauma toknee. Sched Tylenol/Hydroxyzine. Min dose Oxy breakthrough. Hold on NSAIDs until confirmation of herlabs (reported as normal) from [place] given her hx of CKDIII. Tramadol second line. PT to see Andreia. I am not ordering any further imaging at this time. 2- Falls at home- 2 falls, seem directly Opiate related. She also had respiratory depression from Morphine upon arrival at [facility]. I suspect not the best class of [...] Jimenez MD Internal Medicine/Pediatrics 10:31 PM 08/03/2022 [facility] [phone] Total time was > 70 min with [...] this patient. The patient is located at [facility]. The consulting provider is located at home address in [facility]. OBS documented in this encounter Plan of [...] (08/08/2022 4:26 PM CDT) [facility] WBC 6.5 3.5 - 10.5 08/08/2022 [facility] x10(9)/L 5:11 PM CDT [facility] RBC 4.28 3.90 - 08/08/2022 [facility] 5.03 5:11 PM CDT [facility] x10(12)/L [facility] Hemoglobin 13.3 12.0 - 08/08/2022 [facility] 15.5 g/dL 5:11 PM CDT [facility] HCT 40.7 34.9 - 08/08/2022 [facility] 44.5 % 5:11 PM CDT [facility] MCV 95.1 80.0 - 08/08/2022 [facility] 100.0 fL 5:11 PM CDT [facility] MCH 31.1 27.6 - 08/08/2022 [facility] 33.3 pg 5:11 PM CDT [facility] MCHC 32.7 31.5 - 08/08/2022 [facility] 35.2 g/dL 5:11 PM CDT [facility] RDW 14.0 11.9 - 08/08/2022 [facility] 15.5 % 5:11 PM CDT [facility] Platelets 391 150 - 450 08/08/2022 [facility] x10(9)/L 5:11 PM CDT [facility] Immature Gran % 0.3 0.0 - 0.5 08/[facility]20[facility] % 5:11 PM CDT [facility] Neutrophil 3.7 1.7 - 7.0 08/08/2022 [facility] Absolute 10(9)/L 5:11 PM T [facility] Lymphocyte 1.7 1.0 - 4.8 08/08/2022 [facility] Absolute 10(9)/L 5:11 PM CDT [facility] Monocytes 1.0 (H) 0.2 - 0.9 08/08/2022 [facility] Absolute 10(9)/L 5:11 PM T [facility] Eosinophil 0.1 0.0 - 0.5 08/08/2022 [facility] Absolute 10(9)/L 5:11 PM T [facility] Basophil 0.0 0.0 - 0.3 08/08/2022 [facility] Absolute 10(9)/L 5:11 PM T [facility] Specimen Anatomical Collection Method / Collection Time Recei mariam Time (Source) Location / Volume Laterality Blood Venipuncture / 08/08/2022 4:26 08/08/2022 4:40 Unknown PM CDT PM CDT Kaelyn Geller MD LAB_1 Performing Organization Address City/State/ZIP Code Phon e Number [address] [address] [facility] (ABNORMAL) Basic Metabolic Panel (08/08/2022 [...] (L) >60 mL/min/1.73m2 08/08/2022 5:02 P [facility] Specimen Anatomical Collection Method / Collection Time Recei mariam Time (Source) Location / Volume Laterality Blood Venipuncture / 08/08/2022 4:26 08/08/2022 4:40 Unknown PM CDT PM CDT Kaelyn Geller MD LAB_1 Performing Organization Address City/State/ZIP Code Phon e Number [facility] [address] [place] [address] [facility] documented in this encounter Visit [...] Sánchez COTA/Heidi - 08/09/2022 10:05 AM CDT [facility] Occupational Therapy Discharge Summary Patient: Melanie Frederick [...] Newton RN - 08/08/2022 3:30 PM CDT [facility] Plan of Care Note Assessment: 77 year-old [...] Plan of Care Review Flowsheets (Taken 08/08/2022 3093) Progress: no change Plan of Care Reviewed With: patient spouse daughter Note: Plans to discharge tomorrow to [facility] for TCU, family will machine operator picker around 1000, alert andoriented, working with therapies, continue cares. Plan of Care - Johanna Newton RN - 08/07/2022 4:26 PM CDT [facility] Plan of Care Note Assessment: 77 year-old [...] with knee. She has PT/OT. May need alf placement. Continue caes. Plan of Care - [...] referrals for TCU stays near home in [facility] left knee swollen, ice on, did have home care thru [facility] on discharge after TKA on 07/15/22 at [facility],continue cares. Plan of Care - Ping Oneill RN - 08/06/2022 4:00 AM CDT [facility] Plan of Care Note Assessment: Patient here [...] walker and gait belt and pulled on service writer advisor and then sat down hard on the toilet, almost causing service writer advisor to fall while pulling off pad, pushing service writer advisor Patient had a large incontinent void. Complete [...] and swelling is present. CMS is intact. Candle Molder ior lung sounds were slightly diminished in the upper left lung, but cleared with cough and deep breathing. Appetite is good, fluids provided and encouraged. Plan of Care - Lisa Newton OTR/Heidi - 08/05/2022 4:30 PM CDT Images from the original note were not included. [facility] OT Observation Rehabilitation Initial Evaluation Evaluation OT Documentation First Filed Value Flowsheet Row First Filed Value Visit Information Type of Visit evaluation, treatment Filed at 08/05/20221450 Location at bedside Filed at 08/05/20221450 OT # of Individual Minutes in PM Session 35 [[id number]] Filed at 08/05/20221450 Assessment/Recommendations/Plan Criteria for Skilled [...] Filed at 08/05/20221450 Bed Mobility Level of [place] Stand-By Assistance: needs cues or supervision to complete activity without physical assistance, Contact Guard Assistance: light physical assist, helper performs <5% of activity Filed at 08/05/20221450 Sit to Stand Sit to Stand Physical Assist/Nonphysical Assist requires steadying assist Filed at 08/05/20221450 Sit to Stand Assistive Device gait belt, walker, 2 wheeled Filed at 08/05/20221450 Sit to Stand Level of [place] Contact Guard Assistance: light physical assist, helper performs <5% of activity Filed at 08/05/20221450 Car Transfer Toilet Transfer Toilet Transfer Physical Assist/Nonphysical Assist requires steadying assist (4) Filed at 451 Toilet Transfer Assistive Device gait belt, grab bars, walker, 2 wheeled Filed at 08/05/2022 145 (OT) Toilet Transfer Level of [place] Contact Guard Assistance: light physical assist, helper performs <5% of activity Filed at 08/05/20221450 BADLs BADLs grooming, UE dressing, LE dressing, toileting Filed at 08/05/20221450 Eating Grooming Grooming Tasks completed washing, rinsing, drying hands Filed at 08/05/2022 145 (OT) Grooming Level of [place] Contact Guard Assistance: light physical assist, helper performs<5% of activity Filed at 08/05/2022 1451 Grooming Additional Documentation CGA at sink with FWW Filed at 08/05/2022 145 Upper Body Dressing Articles of clothing completed hospital gown Filed at 08/05/2022 145 (OT) Upper Body Dressing Level of [place] Minimal Assistance: needs helper to perform <25% of activity Filed at 08/05/2022 145 Upper Body Dressing Additional Documentation Sterling to tie gown in back Filed at 08/05/2022 145 Lower Body Dressing Clothing completed -- [pad] Filed at 08/05/2022 1451 (OT) Lower Body Dressing Level of [place] Maximal Assistance: needs helper to perform 50-75% [...] at 08/05/2022 1451 (OT) Toileting Level of [place] Moderate Assistance: needs helper to perform 25-50% [...] Filed at 08/05/2022 145 Manual Muscle Testing Sales Support Engineer Strength Right Sales Support Engineer Good Filed at 08/05/2022 145 Left Sales Support Engineer Good Filed at 08/05/2022 145 Pinch Strength [...] Care Reviewed With: patient Note: Admitted from [place] ED with left knee pain, S/P total knee on 07/15/22, has had falls at home, alert and oriented, will look for TCU placement, working with therapies, continue cares. Plan of Care - Jimena Escalante RN - 08/05/2022 1:08 AM CDT [facility] Plan of Care Note Assessment: Patient reporting pain in left knee as aching and 2-3/10. Pain improved after scheduled tylenol and as needed Hydroxyzine. Left knee incision open to air, scabbed over, 1+ edema present. Urinary frequency reported, due to overactive bladder. Patient was seeing [facility] for this issue, minimal records from outside facilities as patient is from [place]. Patient up to the bathroom and [...] from the original note were not included. [facility] PT Observation Rehabilitation Initial Evaluation Evaluation PT [...] to Sit Supine to Sit Level of [place] Stand-By Assistance: needs cues or supervision to [...] 08/04/2022 1600 Sit to Stand Level of [place] Contact Guard Assistance: light physical assist, helper performs <5% of activity Filed at 08/04/2022 1600 Stand to Sit Stand to Sit Level of [place] Contact Guard Assistance: light physical assist, helper performs <5% of activity Filed at 08/04/2022 1600 Transfers (Bed/Chair) Safety Concerns losing balance backward, decreased balance during turns, other (see comments) [Poor WB on L LE] Filed at 08/04/2022 1600 (PT) Transfers (Bed/Chair) Level of [place] Maximal Assistance: needs helper to perform 50-75% [...] (Rn), RN - 08/04/2022 10:57 AM CDT [facility] Plan of Care Note Assessment: 77 y.o. [...] to closely monitor. - Hold all IV opioids/narcotics/LAY BROTHER/s until provider is notified. ondansetron (ZOFRAN) injection [...] agent documented in this encounter Care Teams Cupola Worker Relationship Specialty Start Date End Date Tracee Batres PCP - General 01/07/11 documented as of this encounter
--- OUTSIDE RECORDS SUMMARY | 2022-09-09 20:26 | XMS_ITS ---
:1945 Author Care Team Providers Name Role Phone [facility] Primary Care Provider [phone] Allergies Code Code System Name Reaction [...] 07/12/2019 - IMPLANT NEUROELECT RODES 06/21/2019 Cystometrogram W/svp digital ad sales&up Information not a vailable Notes: 06/21/2019 - [...] - US URINE CAPACITY MEASURE 03/14/2014 Cystometrogram W/svp digital ad sales&up Information not a vailable Notes: 03/14/2014 - [...] - ELECTRO-UROFLOWMET RY FIRST 04/03/2011 Esophagoscopy Flexible Nikolai Information not available Notes: 04/03/2011 - ESOPHAGOSCOPY [...] str stimul, Implant neuroelectrodes, Implant neuroelectrodes, Cystometrogram w/svp digital ad sales&up, Electro-uroflowmetry first, Intraabdominal pressure test, Anal/urinary m uscle study, Cystometrogram w/svp digital ad sales&up, Int raabdominal pressure test, Anal/urinary muscle study, [...] curettage HN - Patient indicated: Cystometrogram w /svp digital ad sales&up, Electro-uroflowmetry first, Intraabdominal pressure test, Anal/urinary muscle study, Cystometrogram w/svp digital ad sales&up, Intraabdominal pressure test, Anal/ur inary muscle study and Electro-uroflowme try first are not accurate. Results Lab Results None recorded. Past Encounters Encounter Date Diagnosis Provider 10/04/2021 Overactive Bladder; Urge Incontinence Malika Lozano MD: [address] [facility], [address], [place] [address], Ph. 10/04/2021 Overactive Bladder Carine Mcdaniel MD: [address] [facility], [facility] [address], [place] [phone], Ph. 08/29/2021 Overactive Bladder Carine Mcdaniel MD: [address] [facility], [facility] [address] [place] [address], Ph. [phone] 07/20/2021 Overactive Bladder; Urge Incontinence Malika Lozano MD: [address]; Incomplete [address], [address], [place], [place] [address], Ph. 06/08/2021 Overactive Bladder; Urge Incontinence Malika Lozano MD: [address]; Incomplete [address], [address], [place], [place] [address], Ph. Social History Tobacco [...]
--- OUTSIDE RECORDS SUMMARY | 2022-09-09 20:26 | XMS_ITS | Clinical Summary ---
:1945 Author Organization [facility] Address [address], [place] [address] Care Team Providers Name Role Phone Tracee [...] for each transition of care or referral. [facility] Allergies Active Allergy Reactions Severity Noted Date Comments Erythromycin Rash 08/03/2022 Hylan G-F 20 Unknown 08/03/2022 From [facility] Penicillins Hives High 08/03/2022 Medications Medication Sig [...] [place] Code Phon e Number [address] [phone] [facility] (ABNORMAL) Basic Metabolic Panel (08/08/2022 [...] LABORATORY Calcium 9.2 8.4 - 10.4 08/08/2022 [facility] mg/dL 5:02 PM T [facility] BUN 27 (H) 7 - 26 08/08/2022 [facility] mg/dL 5:02 PM [facility] Creatinine 1.26 (H) 0.55 - 08/08/2022 [facility] 1.02 mg/dL 5:02 PM T [facility] Glucose 88 70 - 100 08/08/2022 [facility] mg/dL 5:02 PM [facility] Comment: The given reference range is fo r the fasting state. Non-fasting reference range for glucose is 70 - 180 mg/dL. GFR, Estimated 44 (L) >60 mL/min/1.73m2 08/08/2022 5:02 P [facility] Specimen Anatomical Collection Method / Collection Time Recei mariam Time (Source) Location / Volume Laterality Blood Venipuncture / 08/08/2022 4:26 08/08/2022 4:40 Unknown PM CDT PM CDT Kaelyn Geller MD LAB_1 Performing Organization Address City/State/[facility] Code Phon e Number [facility] [address] [place] [address] [facility] from Last 3 Months Insurance Payer Benefit Plan / Subscriber ID Effective Phone Address T e Group Dates MEDICA MEDICA [id number] 2021-Pres [phone] Medic are [facility] [employer] ent [id number] [employer] [place] [id number] Guarantor Name Account Type Relation to Date of Phone Billing Address Patient Melanie Frederick Personal/Famil Self 1945 [address] (Home) [place] [phone] (Work) Melanie Frederick Personal/Famil Self 1945 [address] (Home) [place] [phone] (Work) Melanie Frederick Personal/Famil Self 1945 [address] (Home) [place] [address] Asael Frederick Personal/Famil Self 1945 [address] (Home) [phone] [place] (Work) [id number] Advance Directives Latest Code Status on File Code Status Date Activated Date Inactivated Comments Full Code 08/03/2022 9:58 PM 08/09/2022 12:20 PM Care Teams Pot 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
== END 2022-08-03 19:54 | disposition home or self-care (01) ==
LOC: AMB 09-09 20:24
PROVIDERS: PCP Family Medicine; Visit Provider Family Medicine
DX: M25.562 Pain in left knee (principal)
CPT/HCPCS: A0425; A0426

== ENCOUNTER 2022-09-23 15:23 | Outpatient (CLI) | payer OTHER, SELFPAY | END 2022-09-23 15:24 | disposition home or self-care (01) | LOC: AMB 10-01 21:50 | PROVIDERS: PCP Family Medicine; Visit Provider Family Medicine | DX: R53.1 Weakness (principal) | CPT/HCPCS: A0998 ==